=== PATIENT | male | born 1935 | race Caucasian/White ===

== ENCOUNTER 2022-01-26 03:32 | Emergency (ER) | payer MEDICARE, BC, SELFPAY ==
[2022-01-26 03:44] VITALS: BP 123/82; PULSE 95; RESP 16; TEMP 36.1; O2SAT 95; BMI 31.2
--- NOTE | 2022-01-26 03:47 | CRLHL7_ITS ---
For Patients: As a result of the Century Cures Act, medical imaging exams and procedure reports are released immediately into your electronic medical record. You may view this report before your referring provider. If you have questions, please contact your health care provider. Indication: Pain and swelling Technique: Three views of the left hand were acquired Comparison: None Findings: Somewhat technically limited as the patient could not properly position the fingers. Bone mineral density is decreased. Colindres carpal arthritic change with subchondral cysts but no anamaria erosion. This is diffuse but most FX the 1st carpometacarpal joint. 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 The 2nd through 4th MCP appear normal. 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 Arthritic process of the DIP is, PIP use and IP joint of the thumb appear to represent osteoarthritis. No periarticular demineralization. No abnormal soft tissue calcifications. No clearly visible erosions. Impression: Severe arthritic process as described above. Please review the comment Dictated by Eitan Stewart MD @ 01/26/2022 4:20:45 AM (Electronically Signed)
--- NOTE | 2022-01-26 03:57 | ED_ITS ---
HPI - General Adult General Chief complaint: Extremity Pain/Injury, Upper Stated complaint: left hand swollen going up his arm. Time Seen by Provider: 01/26/22 03:33 Source: patient and family Mode of arrival: ambulatory History of Present Illness HPI narrative: 86-year-old male who visit this fairly frequently comes in the middle of the night with swelling of the left hand for the past 2 days. No trauma nor injury. Using Tylenol with some temporary improvement in pain. Whole hand is swollen and he has some pain that radiates up the arm. Feels warm, slightly red. Swelling started in the dorsum of the hand, now going into the fingers as well. Denies a history of gout, rheumatoid arthritis. He does have a known history of osteoarthritis in multiple sites of course at his age. No recent changes in medications, no recent steroid use. He does have a notable history of COPD. He is not having any fevers. Notes no cuts or scratches. No systemic symptoms of infection. Appetite has been good, normal elimination. No chest pain, dyspnea or other organ system issues. ROS is negative times 12 systems with the exception of swelling of the hand. No recent diagnosis of cellulitis. Past medical history is fairly extensive, notable for COPD, hypertension. He does take a thiazide. Remainder of his medications are reviewed notable for antihypertensives, COPD inhalers, Synthroid. No known drug allergies. No recent pertinent surgeries. History and physical from last year are reviewed in the old EMR. No prior diagnosis of gout is found. ROS is notable for no other musculoskeletal, neurological, generalized, cardi ovascular, respiratory, GI, urinary, hematological, HEENT or skin changes. Related Data Home Medications Medication Instructions Recorded Confirmed amlodipine 5 mg tablet 5 mg PO DAILY 01/26/22 01/26/22 fluticasone 250 mcg-salmeterol 50 1 inh inhalation BID 01/26/22 01/26/22 mcg/dose blistr powdr for inhalation (Advair Diskus) ipratropium 20 mcg-albuterol 100 1 puff inhalation QID 01/26/22 01/26/22 mcg/actuation mist for inhalation (Combivent Respimat) levothyroxine 150 mcg tablet 150 mcg PO .AM 01/26/22 01/26/22 triamterene 37.5 1 tab PO .AM 01/26/22 01/26/22 mg-hydrochlorothiazide 25 mg tablet Previous Rx's Medication Instructions Recorded amoxicillin 875 mg-potassium 1 tab PO BID 10 days #20 tabs 01/26/22 clavulanate 125 mg tablet meloxicam 7.5 mg tablet 7.5 mg PO DAILY #10 tabs 01/26/22 Allergies Allergy/AdvReac Type Severity Reaction Status Date / Time No Known Drug Allergies Allergy Verified 01/26/22 03:48 PFSH [facility] Medical History COPD (chronic obstructive pulmonary disease) Pulmonary arterial hypertension Surgical History History of right hip replacement Exam Const: Vital Signs, click to edit/add: Vital Signs - 24 hr 01/26/22 03:44 Temperature 96.9 F L Pulse Rate [Pulse Oximeter] 95 Respiratory Rate 16 Blood Pressure [Ri ght Upper Arm] 123/82 Pulse Oximetry 95 Oxygen Delivery Me thod Room Air Documenting provider has reviewed patient's vital signs: yes Common normals: no apparent distress and alert General appearance: cooperative Orientation/consciousness: Yes awake Other: Talkative, friendly, mild cognitive impairment noted. Accompanied by family friend today who says that she sets up his medications and does look in on him frequently. HENMT: Common normals: normocephalic Head and scalp: normocephalic Mouth: oral and palatal mucosa normal Eye: Common normals: conjunctivae normal and no scleral icterus Conjunctiva: conjunctiva(e) normal Neck & C-Spine: Common normals: full ROM and no lymphadenopathy Resp: Common normals: normal respiratory effort, no use of accessory muscles and clear to auscultation bilaterally Effort & inspection: able to speak in complete sentences Auscultation: clear to auscultation bilaterally Cardio: Common normals: regular rate, regular rhythm, S1 normal heart sound, S2 normal heart sound, no murmurs and peripheral pulses 2+ throughout Rate: regular rate Rhythm: regular rhythm Heart sounds: S1 normal and S2 normal Peripheral pulses: pulses 2+ throughout Extremity: Other: Right arm with normal range of motion of the elbow, hand, wrist. The left side shows moderate swelling to the dorsum of the hand but no laceration or skin injury. It is diffusely swollen, warm to the touch with mild pink hue that is just diffuse. The swelling does extend into the fingers but seems to center around the wrist and MCP joints the most. He has limited flexion extension at the wrist and at the MCP and interphalangeal joints. The thumb has a little bit better movement. The elbow seems to have normal flexion extension he does move his shoulder freely as well. No point bony tenderness can be elicited. Other than the soft tissue swelling, there does not seem to be any deformity Neuro: Sensorium/orientation: awake and alert Gait (neuro): normal gait Psych: Common normals: cooperative, affect normal, speech normal and activity/motor behavior normal Speech: normal speech Insight: fair Judgement: fair Skin: Common normals: no rashes or lesions noted General skin exam: no rashes or lesions noted Course Vital Signs Vital signs: Initial Vital Signs Temperature 96.9 F L 01/26/22 03:44 Temperature Source Temporal Artery Scan 01/26/22 03:44 Pulse Rate 95 01/26/22 03:44 Respiratory Rate 16 01/26/22 03:44 Blood Pressure 123/82 01/26/22 03:44 Blood Pressure Mean 95 01/26/22 03:44 Blood Pressure Position Sitting 01/26/22 03:44 Pulse Oximetry 95 01/26/22 03:44 Oxygen Delivery Method 01/26/22 03:44 Vital Signs Temperature 96.9 F L 01/26/22 03:44 Pulse Rate 95 01/26/22 03:44 Respiratory Rate 16 01/26/22 03:44 Blood Pressure 123/82 01/26/22 03:44 Pulse Oximetry 95 01/26/22 03:44 Oxygen Delivery Method 01/26/22 03:44 Temperature 96.9 F L 01/26/22 03:44 Pulse Rate 95 01/26/22 03:44 Respiratory Rate 16 01/26/22 03:44 Blood Pressure 123/82 01/26/22 03:44 Pulse Oximetry 95 01/26/22 03:44 Oxygen Delivery Method 01/26/22 03:44 Medical Decision Making MDM Narrative Medical decision making narrative: Differential diagnosis including hidden fracture or other musculoskeletal injury, gout, inflammatory arthritis, osteoarthritis, cellulitis. Due to some detected cognitive impairment, a do think an x-ray is worthwhile. Will also get routine labs including inflammatory markers with uric acid levels. Awaiting these studies. Update: Marked degenerative changes but no fracture noted x-ray. Labs reviewed. Notable elevated inflammatory markers but no leukocytosis. Uric acid level is reassuring. I still suspect this is more of an inflammatory arthritis but clinical suspicion remains for cellulitis. Will begin Unasyn 3 g IV x1 and start the patient on Augmentin. He will receive 40 mg of prednisone p.o. x1 here in the emergency department and then daily meloxicam for 10 days. Follow up in 2 days with Primary Care for re-evaluation. Light duty for the next couple of days, rest and ice as needed. Lab Data Lab results reviewed: Yes I reviewed the patient's lab results Labs: Lab Results 01/26/22 01/26/22 Range/Units 03:50 03:50 WBC 8.19 (4.50-11.00) K/uL RBC 3.79 L (4.30-5.90) m/uL Hgb 12.9 L (13.5-17.5) gm/dL Hct 36.5 L (37.0-53.0) % MCV 96 (80-100) fL MCH 34 (26-34) pg MCHC 35 (32-36) gm/dL RDW Coeff of Alec 13.0 (11.5-15.5) % Plt Count 214 (140-440) K/uL Neut % (Auto) 73.4 H (42.0-72.0) % Lymph % (Auto) 13.4 L (20-44) % [place] % (Auto) 11.8 H (0.0-11.0) % Eos % (Auto) 0.9 (0.0-7.0) % Baso % (Auto) 0.4 (0.0-3.0) % Neut # (Auto) 6.00 (1.7-7.0) K/uL Lymph # (Auto) 1.10 (0.90-2.90) K/uL [place] # (Auto) 1.00 H (0.00-0.90) K/UL Eos # (Auto) 0.07 (0.00-0.50) K/uL Baso # (Auto) 0.03 (0.00-0.30) K/uL Abs Immat Gran (auto) 0.01 (0.00-0.30) K/uL Imm/Tot Granulo (auto) 0.1 % Sodium 137 (135-149) mmol/L Potassium 3.7 (3.6-5.1) mmol/L Chloride 104 (96-114) mmol/L Carbon Dioxide 25 (20-32) mmol/L BUN 24 (7-30) mg/dL Creatinine 0.8 (0.5-1.5) mg/dL Estimated Creat Clear 63.93 Estimated GFR 87 ml/min Glucose 111 (60-115) mg/dL Uric Acid 6.1 (2.2-8.4) mg/dL Calcium 8.9 (8.4-10.6) mg/dL C-Reactive Protein 4.3 H (0.5-1.0) mg/dL Imaging Data Hand x-ray: Attestation: I have reviewed the pertinent imaging results. My impression: Such marked osteoarthritic changes that it is difficult to appreciate any potential gouty tophi or other process but I do not see any obvious fracture. Radiologist's impression: Reviewed. See report specifically, there are multiple degenerative changes but nothing appearing acute. No changes from my plan of care. Discharge Plan Discharge Clinical Impression: Cellulitis, Reactive inflammatory arthritis Condition: Stable Instructions: Cellulitis (ED) Additional Instructions: Your x-rays show a lot of degenerative changes in the hand, signs of osteoarthritis. This is not new. There are no signs of fractures. The labs show elevated inflammatory markers but a normal uric acid level. This could potentially be gout but is unlikely because of the normal labs. You do take 1 medication, hydrochlorothiazide that does make you a little more prone to getting gout. My suspicion is that this is a combination of inflammatory arthritis and a skin infection called cellulitis. We gave you a dose of IV antibiotics here in the emergency department annual need to curing pickling packer antibiotics this morning from the local pharmacy and take these twice a day for the next 10 days. Try to take them with food as this will cause less upset your stomach. I would like for you to make a follow-up with Dr. Friend or 1 of his partners within 2 days. I will also prescribe you meloxicam which is an anti- inflammatory medication to use for the next 10 days. You may continue using Tylenol for pain, 1000 mg every 6 hours. I would like for you to avoid ibuprofen while you are on the meloxicam. Your symptoms should improve gradually daily over the next few days, but relief will not be immediate. Stronger pain medications tend to cause lot of side effects, including confusion older people. I would like to avoid these. Please bring this paperwork to your a follow-up appointment Activity Level: No Restrictions Discharge Diet: Regular Prescriptions: New amoxicillin-pot clavulanate 875-125 mg tablet 1 tab PO BID 10 Days Qty: 20 0RF meloxicam 7.5 mg tablet 7.5 mg PO DAILY Qty: 10 0RF No Action levothyroxine 150 mcg tablet 150 mcg PO .AM Label Comments: TAKE ONE TABLET BY MOUTH ONE TIME DAILY triamterene-hydrochlorothiazid 37.5-25 mg tablet 1 tab PO .AM Label Comments: TAKE ONE TABLET BY MOUTH IN THE MORNING amlodipine 5 mg tablet 5 mg PO DAILY Label Comments: Take 1 Tablet (5 mg) by mouth once daily. fluticasone propion-salmeterol [Advair Diskus] 250-50 mcg/dose blister with d evice 1 inh INHALATION BID Label Comments: Inhale 1 Puff by mouth 2 times daily Combivent Respimat 20-100 mcg/actuation mist 1 puff INHALATION QID Label Comments: INHALE ONE PUFF BY MOUTH FOUR TIMES DAILY Follow Up/Referrals: Jason Hickey MD [Primary Care Provider] - Stand Alone Forms: IFTTT Info Instructions
[2022-01-26 03:59] LABS: Basophils Absolute Auto 0.03 K/uL (0.00-0.30); Basophils Percent Auto 0.4 % (0.0-3.0); Eosinophils Absolute Auto 0.07 K/uL (0.00-0.50); Eosinophils Percent Auto 0.9 % (0.0-7.0); Hematocrit 36.5 % (37.0-53.0); Hemoglobin* 12.9 gm/dL (13.5-17.5); Immature Granulocytes Abs Auto 0.01 K/uL (0.00-0.30); Immature Granulocytes Pct Auto 0.1 %; Lymphocytes Percent Auto 13.4 % (20-44); Mean Corpuscular HGB Conc 35 gm/dL (32-36); Mean Corpuscular Hemoglobin 34 pg (26-34); Mean Corpuscular Volume 96 fL (80-100); Monocytes Percent Auto 11.8 % (0.0-11.0); Neutrophils Percent Auto 73.4 % (42.0-72.0); Platelet Count* 214 K/uL (140-440); Red Blood Count 3.79 m/uL (4.30-5.90); White Blood Count* 8.19 K/uL (4.50-11.00)
[2022-01-26 04:00] LABS: Slide Review Reflex No
--- OUTSIDE RECORDS SUMMARY | 2022-01-26 04:08 | XMS_ITS | Clinical Summary ---
:1935 Author Organization [facility] [place] [address] Care Team Providers Name Role Phone Jason Hickey MD Primary Care Provider Allergies No known active allergies Medications Medication Sig Dispensed Refills Start End Date Status Date aspirin (ECOTRIN) 81 Take 1 tablet by 0 Active mg enteric coated mouth once daily 5 tablet with a meal. acetaminophen Take 2 tablets by 0 Active (TYLENOL EXTRA mouth 3 times 6 STRGTH) 500 mg daily if needed tabletIndications: (For pain.). Max Closed right hip acetaminophen fracture, initial dose: 4000mg in encounter (HC) 24 hrs. cholecalciferol Take 1 Capsule 0 Active (Vitamin D-3) 2,000 (2,000 units) by 1 unit capsule mouth once daily. cyanocobalamin Take 1 Tablet 0 A ctive (Vitamin B-12) 1,000 (1,000 mcg) by 1 mcg tablet mouth once daily. albuterol HFA Inhale 2 Puffs by 1 Each 3 Active (PRO-AIR; VENTOLIN; mouth every 4 1 PROVENTIL) 90 hours if needed. mcg/actuation inhalerIndications: COPD exacerbation (HC) cyclobenzaprine Take 1 Tablet (10 30 Tablet 0 Active (FLEXERIL) 10 mg mg) by mouth 3 1 tabletIndications: times daily if Spasm of muscle of needed for Muscle lower back Spasm. amLODIPine (NORVASC) Take 1 Tablet (5 90 Tablet 3 Active 5 mg mg) by mouth once 2 tabletIndications: daily. Essential hypertension ipratropium-albutero Inhale 1 Puff by 3 Each 1 Active L (combivent mouth 4 times 2 respimat) (20-100 daily. mcg each actuation) mist inhalerIndications: COPD with chronic bronchitis (HC) fluticasone Inhale 1 Puff by 3 Each 1 A ctive propion-salmeteroL mouth 2 times 2 (Advair Diskus) daily. 250-50 mcg/Dose diskus inhalerIndications: COPD with chronic bronchitis (HC) triamterene-hydrochl Take 1 Tablet by 90 Tablet 3 Active orothiazide, 37.5-25 mouth every 2 mg, (MAXZIDE-25) morning. 37.5-25 mg tabletIndications: Essential hypertension levothyroxine TAKE ONE TABLET 90 Tablet 0 Active (SYNTHROID) 150 mcg BY MOUTH ONE TIME 2 tabletIndications: DAILY Hypothyroidism, unspecified type levothyroxine TAKE ONE TABLET 90 Tablet 0 01/21/20 Discontinued (SYNTHROID) 150 mcg BY MOUTH ONE TIME 2 22 tabletIndications: DAILY Hypothyroidism, unspecified type Hospital, Clinic, or Ordered Dose Route Frequency Start Date End D ate Status Other Facility Administered Medication cyanocobalamin 1,000 1000 mcg IM Q 4 WEEKS (28 11/23/2016 Active mcg injection (VITAMIN DAYS) B12)Indications: Vitamin B12 deficiency Active Problems Problem Noted Date 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 Patient has identified Health Care Agent (s): Yes Add Health Care Agents: Yes Health Care Agent(s): Primary Health Care Agent: Lauren Gray ship: cell [phone] Secondary Health Care Agent: Relationshi p: Phone: Conservator: Relationship: Phone: Guardian: Relationship: Phone: Patient has Advance Care Plan Documents (Health Care Directive, POLST): Yes Advance Care Plan Documents: Health Care Directive Patient has identified Specific Treatmen t Preferences: Yes Specific Treatment Preferences: a.) Code Status: DNR/ Do Not Attempt Resuscitation - Allow a Natural HYPERTENSION 06/21/2005 HYPOTHYROIDISM ACQUIRED UNSPEC 06/21/2005 Calculus of kidney 06/21/2005 Resolved Problems Problem Noted Date Resolved Date Atrioventricular block, Mobitz type 2 06/29/2018 Closed right hip fracture 12/27/2015 04/22/2016 Aneurysm of right iliac artery--s/p repair 4-7-06 06/21/2005 06/10/2020 Encounters Date Type Specialty Care Team Description 01/18/2022 Refill Jason Hickey MD Refi ll Request (Levothyroxine) from Last 3 Months Immunizations Name Administration Dates Next Due AMB INFLUENZA IIV3 (AGE 65+ YRS) PF 01/19/2019 (Flu Clinic Only) AMB Influenza, IIV3 (Age >=3 years) 01/01/2010 Preserve Free (Flu Clinic Only) AMB Influenza, IIV3 (Age >=3 12/22/2011 years)(Flu Clinic Only) COVID-19 vaccine ([employer] 05/21/2020, 04/30/2020 30mcg/0.3mL) PF, MDV Influenza, High-dose Inactivated 12/29/2015, 12/03/2014 Influenza, IIV3 (Age 6-35 mos) 12/17/2010, 01/01/2010 Influenza, IIV3 (Age >=3 years) 12/27/2012, 12/22/2011, 07/2010, 11/29/2008, 01/17/2008, 01/26/2003 Influenza, IIV4 12/10/2013 Influenza, Inactivated AIIV4 (Age 65+ 12/17/2020, 12/13/2019 Years) Preserv Free Influenza, Inactivated IIV3 (Age 65+ 11/23/2017, 11/23/2016 Years) Preserv Free Pneumococcal Poly,23-Valent 01/24/2016 (Pneumovax) Pneumococcal conj 13-Valent (Prevnar 12/03/2014 13) Td (Age >=7 Years) 06/17/2007 Tdap 10/06/2018, 08/04/2018 Family History Medical History Relation Name Comments Heart Disease Father at 74 from heart attack Other Mother at 93 Relation Name Status Comments Father Mother Social History Tobacco Use Types Packs/Day Years Used Date Former Smoker Quit: 03/15/18 89 Smokeless Tobacco: Current User Chew Tobacco Cessation: Ready to Quit: No; Co unseling Given: Yes Comments: chew tobacco/occasional, 1 pac k every 2 weeks for 30 years Alcohol Use Standard Drinks/Week Comments No 0 (1 standard drink = 0.6 oz pure alcoho l) Sex Assigned at Date Recorded Not on file Obstetrics History Last Filed Vital Signs Vital Sign Reading Time Taken Comments Blood Pressure 116/70 07/25/2021 10:27 AM CDT Pulse 76 07/25/2021 10:27 AM CDT Temperature 36.4 ??C (97.5 ??F) 06/30/2021 4:14 PM CDT Respiratory Rate 28 09/25/2020 2:36 PM CDT Oxygen Saturation 95% 07/25/2021 10:27 AM CDT Inhaled Oxygen Concentration - - Weight 119.7 kg (264 lb) 06/30/2021 4:14 PM CDT Height 185.4 cm (6' 1) 12/28/2019 1:46 PM CDT Body Mass Index 34.83 12/28/2019 1:46 PM CDT Plan of Treatment Health Maintenance Due Date Last Done Comments Zoster (shingles) series for age 0608/17/1987 50+ (1 of 2) BMI (ht and wt on same day) for 12/27/2020 12/28/2019, 11/15, age 18+ 02/08/2019, Additional history exists COVID-19 vaccine series (4 - 03/04/2021 01/07/2021, 021, Booster for Pfizer series) 04/30/2020 Medicare Wellness for age 65+ 06/10/2021 06/10/2020 Influenza for age 65+ 11/13/2021 12/17/2020, 12/13/2019, 01/19/2019, Additional history exists Depression screening for age 12+ 06/30/2022 06/30/2021, , 12/13/2019, Additional history exists Tetanus booster 10/06/2028 10/06/2018, 08/04/2018, 06/17/2007 Pneumococcal series for age 65+ Completed 01/24/2016, 11/14 Tdap Completed 10/06/2018, 08/04/2018 Medical Devices Implanted Type Area Shipping Inspector Device Shelf Model / Identifier Expiration Serial / Date Lot Graft Woven 16x8mm Bif Hemashield [id number] - [id number] [place] [facility] [place] [id number] / Implanted: Qty: 1 on 06/19/2005 at [facility] Oncology / [id number] Results Not on filefrom Last 3 Months Insurance Payer Benefit Plan / Subscriber ID Effective Dates Phone Addre ss Type Group [employer] [id number] 2016-Prese [address] [place] [address] MEDICARE PART A MEDICARE PART A [id number] 2002-Presen ATTN: CLAIMS - HB USE ONLY HB ONLY t [address] [place] [address] [employer] [place] [place] [employer] [id number] 2021-Presen [address] [address] [place], [place] ONLY [id number] Advance Directives Documents on File Type Date Recorded 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
[2022-01-26 04:19] LABS: Chloride* 104 mmol/L (96-114); Sodium* 137 mmol/L (135-149)
[2022-01-26 04:20] LABS: Potassium* 3.7 mmol/L (3.6-5.1)
[2022-01-26 04:22] LABS: Creatinine* 0.8 mg/dL (0.5-1.5); Est. Creatinine Clearance* 63.93; Estimated Glomerular Filt Rate 87 ml/min
[2022-01-26 04:23] LABS: Blood Urea Nitrogen* 24 mg/dL (7-30); Calcium* 8.9 mg/dL (8.4-10.6); Carbon Dioxide* 25 mmol/L (20-32); Glucose* 111 mg/dL (60-115); Uric Acid* 6.1 mg/dL (2.2-8.4)
[2022-01-26 04:26] LABS: C Reactive Protein* 4.3 mg/dL (0.5-1.0)
[2022-01-26] MEDS: AMPICILLIN/SULBACTAM 3 GM in 0.9 % SODIUM CHLORIDE Mini-bag 100 ML IVPB (04:46)
[2022-01-26] MEDS: predniSONE 10 MG TABLET 40 MG PO (04:50)
[2022-01-26] MEDS: HYDROCODONE-ACETAMIN 5-325 MG 1 TAB PO (05:18)
== END 2022-01-26 05:37 | disposition home or self-care (01) ==
PROVIDERS: Emergency Provider Family Medicine; PCP Family Medicine
DX: L03.113 Cellulitis of right upper limb (principal); M02.341 Reiter's disease, right hand
CPT/HCPCS: 36415; 73130; 80048; 84550; 85025; 86140; 96365; 99283; 99284; A9270; J0295; J7512

== ENCOUNTER 2022-11-12 15:13 | Outpatient (CLI) | payer MEDICARE, BC, SELFPAY ==
--- OUTSIDE RECORDS SUMMARY | 2022-11-16 09:40 | XMS_ITS | Continuity of Care Document ---
Author Name Unknown Organization [facility] Address [address] [place] [address] Phone Care Team Providers Care Practice Representative Name Role Phone Evette Bay MD Unavailable [...] Assist Remove Cerv Spine Disk, Single Office/Outpatient Visit,[facility] 2014 Advance Directives Directive Yes / No Effective Date File Name No Information Encounters Encounter Description Practice Location Reason(s) For Visit Diagnoses Date Provider Providers Copied on Encounter [facility], [address], [place], [place], [id number], [place] tel:[phone] [facility] No Information 7 Mehbod Amir. [facility], [address] [place] [address] [address], [place], [place], [id number] , [place]. [phone] [facility], [address], [place], [place], [id number], [place] tel:[phone] [facility] Encounter for other specified surgical aftercare 6 Mehbod Amir. [facility], [address], [place], [place], [id number] , [place]. [phone] Referring Provider: Thiago Foreman [address] [place] [address] [address], [place], [address] . tel:[phone] [facility], [address], [place], [id number], [place] tel:[phone] [facility] No Information Dec-0 2-201 5 Shanique Alas. [facility], [address] [place] [address] [address], [place], [id number] , [place]. [phone] Referring Provider: Thiago Foreman, [address] [place] [address] [address], [place], [address] . tel:[phone] Office/Outpat ient Visit,[facility], [facility], [address], [place], [id number], [place] tel:[phone] [facility] Oct-0 5201 5 Alicia Das. [address] [place] [address] [address], [place], [id number] , [place]. [phone] Referring Provider: Thiago Foreman, [address] [place] [address] [address], [place], [address] . tel:[phone] Family History Family Member Type Diagnosis Age At Onset No Information Payers Payer name Insurance type Covered republican ID Authoriza tiarin(s) [employer] Medicare Gold Choice Kris [id number] Social History Type Description Quantity Date [...]
== END 2022-11-12 15:14 | disposition home or self-care (01) ==
LOC: AMB 11-16 09:39
PROVIDERS: PCP Family Medicine; Visit Provider Internal Medicine
DX: S09.90XA Unspecified injury of head, initial encounter (principal); W18.30XA Fall on same level, unspecified, initial encounter; Y92.003 Bedroom of unspecified non-institutional (private) residence as the place of occurrence of the external cause
CPT/HCPCS: A0425; A0429

== ENCOUNTER 2022-11-12 15:40 | Inpatient (IN) | payer MEDICARE, BC, SELFPAY ==
[2022-11-12] VITALS (43 sets, daily range): BP systolic 108–220; BP diastolic 72–168; PULSE 88–110; RESP 18–20; TEMP 37.2–37.4; O2SAT 86–96; BMI 27.1; BMI 29.1
[2022-11-12 16:33] LABS: Troponin, Point-of-Care* 0.05 ng/ml (0.01-0.04)
--- NOTE | 2022-11-12 16:41 | ED.FALL ---
HPI - Fall General Time Seen by Provider: 16:41 Date Seen: 11/12/22 Chief Complaint: Fall/Minor Trauma Stated Complaint: Fall Time Seen by Provider: 11/12/22 16:33 Source: patient and RN notes reviewed Mode of arrival: ambulatory Limitations: no limitations History of Present Illness HPI Narrative: Lion is an 87-year-old male found down in his apartment, fell overnight. He reportedly was laying face down on the right side of his face all night. He is here with a care provider, brought in by ambulance from his independent apartments where he resides at [facility] [address]. They report his a week ago today, the is tomorrow. Lion recently had a UTI, care provide her with him wonders if it could be urinary tract infection again. He has incontinence issues. Nursing staff attempted to get a cath specimen but has significant altered anatomy per the report, were unable to catheterize him. He denies any pain at this time, does note right shoulder maybe has some rotator cuff issues arthritis, did hurt in the fall but is not more than baseline at this time. He denies any pain anywhere at this time. Is noted to have bilateral knee trauma. His right face is swollen, reportedly this is the side he late on all night. His right eye was significantly mattered, nursing staff did clean it. He denies any fever, denies any pain anywhere to me. He is not on blood thinners. In review of his chart, was last seen here in January 2022 for a hand cellulitis. He has underlying COPD, hypertension, pulmonary hypertension, history of right hip replacement. MD complaint: fall Related Data Home Medications Medication Instructions Recorded Confirmed amlodipine 5 mg tablet 5 mg PO DAILY 01/26/22 01/26/22 fluticasone 250 mcg-salmeterol 50 1 inh inhalation BID 01/26/22 01/26/22 mcg/dose blistr powdr for inhalation (Advair Diskus) ipratropium 20 mcg-albuterol 100 1 puff inhalation QID 01/26/22 01/26/22 mcg/actuation mist for inhalation (Combivent Respimat) levothyroxine 150 mcg tablet 150 mcg PO .AM 01/26/22 01/26/22 triamterene 37.5 1 tab PO .AM 11/14/22 11/14/22 mg-hydrochlorothiazide 25 mg tablet Previous Rx's Medication Instructions Recorded amoxicillin 875 mg-potassium 1 tab PO BID 10 days #20 tabs 01/26/22 clavulanate 125 mg tablet meloxicam 7.5 mg tablet 7.5 mg PO DAILY #10 tabs 01/26/22 Allergies Allergy/AdvReac Type Severity Reaction Status Date / Time No Known Drug Allergies Allergy Verified 11/12/22 15:55 Review of Systems Status of ROS: Reports: 6 or more systems reviewed and unremarkable except as noted in History and below PFSH [facility] Medical History Pulmonary arterial hypertension ?I27.21 - Secondary pulmonary arterial hypertension (ICD-10) COPD (chronic obstructive pulmonary disease) ?J44.9 - Chronic obstructive pulmonary disease, unspecified (ICD-10) Surgical History History of right hip replacement ?Z96.641 - Presence of right artificial hip joint (ICD-10) Social History Smoking Status: Former smoker What tobacco products do you use: cigarettes Smoking quit date/years: >15 years ago Do you use any of these nicotine containing products: None How often do you have a drink containing alcohol: never AUDIT-C Alcohol total score: 0 Non-prescribed substance use: denies use Exam Const: Vital Signs, click to edit/add: Vital Signs - 24 hr 11/12/22 15:50 11/12/22 15:50 11/12/22 15:51 Temperature 99.0 F Pulse Rate 95 96 Pulse Rate [Right Pulse Oximeter] 93 Respiratory Rate 18 Blood Pressure 141/93 H Blood Pressure [Ri ght Upper Arm] 141/93 H Pulse Oximetry 96 93 94 Oxygen Delivery Me thod Room Air 11/12/22 16:00 11/12/22 16:02 11/12/22 16:15 Temperature Pulse Rate 91 91 90 Pulse Rate [Right Pulse Oximeter] Respiratory Rate Blood Pressure 156/83 H Blood Pressure [Ri ght Upper Arm] Pulse Oximetry 94 94 94 Oxygen Delivery Me thod 11/12/22 16:17 11/12/22 16:32 11/12/22 16:38 Temperature Pulse Rate 93 88 Pulse Rate [Right Pulse Oximeter] Respiratory Rate Blood Pressure 168/134 H 220/168 H Blood Pressure [Ri ght Upper Arm] Pulse Oximetry 91 91 Oxygen Delivery Me thod 11/12/22 16:44 11/12/22 16:45 11/12/22 16:45 Temperature Pulse Rate 95 90 Pulse Rate [Right Pulse Oximeter] Respiratory Rate Blood Pressure 150/79 H Blood Pressure [Ri ght Upper Arm] Pulse Oximetry 91 90 91 Oxygen Delivery Me thod 11/12/22 16:47 11/12/22 17:00 11/12/22 17:02 Temperature Pulse Rate 90 89 91 Pulse Rate [Right Pulse Oximeter] Respiratory Rate Blood Pressure 136/80 153/87 H Blood Pressure [Ri ght Upper Arm] Pulse Oximetry 89 93 86 L Oxygen Delivery Me thod 11/12/22 17:15 11/12/22 17:17 11/12/22 17:57 Temperature Pulse Rate 90 88 95 Pulse Rate [Right Pulse Oximeter] Respiratory Rate Blood Pressure 141/75 H Blood Pressure [Ri ght Upper Arm] Pulse Oximetry 91 92 92 Oxygen Delivery Me thod 11/12/22 17:58 11/12/22 18:00 11/12/22 18:01 Temperature Pulse Rate 97 95 98 Pulse Rate [Right Pulse Oximeter] Respiratory Rate Blood Pressure 108/77 116/86 Blood Pressure [Ri ght Upper Arm] Pulse Oximetry 93 92 92 Oxygen Delivery Me thod 11/12/22 18:02 11/12/22 18:15 11/12/22 18:17 Temperature Pulse Rate 101 H 96 93 Pulse Rate [Right Pulse Oximeter] Respiratory Rate Blood Pressure 133/74 Blood Pressure [Ri ght Upper Arm] Pulse Oximetry 93 91 92 Oxygen Delivery Me thod 11/12/22 18:18 11/12/22 18:32 11/12/22 18:33 Temperature Pulse Rate 95 92 Pulse Rate [Right Pulse Oximeter] Respiratory Rate Blood Pressure 136/72 Blood Pressure [Ri ght Upper Arm] Pulse Oximetry 93 92 Oxygen Delivery Me thod 11/12/22 18:45 11/12/22 18:46 Temperature Pulse Rate 95 97 Pulse Rate [Right Pulse Oximeter] Respiratory Rate Blood Pressure 121/78 Blood Pressure [Ri ght Upper Arm] Pulse Oximetry 92 93 Oxygen Delivery Me thod 87-year-old male is seen in stab 1 due to volume in the ED. he is resting but awakens easily. He is edentulous in oropharynx is atraumatic but has dry mucosa. Speech reflects this it inch a list state but he is conversive. He has right periorbital swelling including upper and lower eyelid which is swollen shut on the right side. Underlying pupil is equal reactive with the left, sclera clear, conjugate gaze, had to pry the eyelids open on the right to be able to see this. The swelling and erythema extends up above the eyebrow, down onto the right zygomatic arch. There are no wounds noted. Ears and nose seem to be atraumatic. Scalp seems to be atraumatic, does not complain of any midline tenderness of his back, neck without masses. Lungs are clear, somewhat distant breath sounds but no crackles noted. Does not complain of any chest wall pain on palpation. CV regular rate and rhythm, no murmur noted. Abdomen is soft, nontender, no palpable masses noted. He seems to be able to mobilize both upper and lower extremities but do note that anteriorly over both knees seems to have pressure wound starting, they are black and in the middle with some blistering. There is more erythema and slight warmth over the right anterior skin overlying the knee. Knee joints bilaterally do not seem to have any fluid. He does not complain of any pain while I am examining his knees are palpating them. Penis is visible, has central hole but do not see definition of the glans. Will work with nursing staff on getting a Rodriguez in place. Documenting provider has reviewed patient's vital signs: yes Course Course Hospital Course: Need to try to attempt to get urine on this patient as well as a full complement of labs, would do blood cultures as well as screening for COVID/viral respiratory agents. He will get head, facial and cervical CT scans to rule out traumatic change. We will get a one view chest x-ray, images of his right shoulder and both of his knees. I do wonder about underlying infection for this patient, need to consider elevated CK as well with developing rhabdomyolysis. Certainly his face and his right knee do have some skin changes that could already 0.2 early cellulitis. These could all just be there from pressure independent changes from being down overnight. We need to consider multiple systems and rule out infection. Will start with 500 mL normal saline fluid bolus and monitor closely, may very well need more fluids than that but will monitor as stated. Reevaluation(s) Time of Reevaluation #1: 18:46 Reevaluation #1: Reviewed with Lion that his total CK is up, explained that this was from his fall laying on his muscles causing them to break down. We discussed the condition of rhabdomyolysis. He needs IV fluid support, need to look for source of infection. Am having nursing staff try to place a Rodriguez so we can get a urinalysis. He is going to need IV fluids, further management. He states he is not stain, his 's is supposed to be tomorrow. Reviewed with him that he is not being forced to stay, if he can get up on his own, he is free to do so. Unfortunately, he is too weak and is not able to. There certainly is an underlying infection that we need to find the source. Am waiting for rest of the films to be read. We need to collect the urinalysis as stated before. He is going to need hospitalization, will talk to the hospitalist shortly. Time of Reevaluation #2: 19:01 Reevaluation #2: Nursing staff could not get a catheter in, I attempted a coude, patient started complaining of pain and asked me to stop which I did do so. He states he can provide urine if he can sit up. Will allow him to sit and try to get urinalysis. Consultations Consultation #1: Spoke with hospitalist Dr. Jiménez, she accepts patient. Did add on an ETOH for labs after talking to her. He did attempt to get up in urinate but was unable to provide urine. He is getting a 2nd 500 mL normal saline bolus here. Will likely need more fluids than this. She is aware that we have been unsuccessful in obtaining urinalysis. Will have nursing staff do bladder scan. She does except him for further cares, does have rhabdomyolysis. Follow-up troponin is also pending. Time: 19:46 Vital Signs Vital signs: Initial Vital Signs Temperature 99.0 F 11/12/22 15:50 Temperature Source Temporal Artery Scan 11/12/22 15:50 Pulse Rate 95 11/12/22 15:50 Pulse Rhythm Regular 11/12/22 15:50 Pulse Strength 3+ Normal 11/12/22 15:50 Respiratory Rate 18 11/12/22 15:50 Blood Pressure 141/93 H 11/12/22 15:50 Blood Pressure Mean 109 H 11/12/22 15:50 Blood Pressure Position Supine 11/12/22 15:50 Pulse Oximetry 96 11/12/22 15:50 Oxygen Delivery Method Room Air 11/12/22 15:50 Vital Signs Temperature 99.0 F 11/12/22 15:50 Pulse Rate 95 11/12/22 15:50 Respiratory Rate 18 11/12/22 15:50 Blood Pressure 141/93 H 11/12/22 15:50 Pulse Oximetry 96 11/12/22 15:50 Oxygen Delivery Method Room Air 11/12/22 15:50 Temperature 99.0 F 11/12/22 15:50 Pulse Rate 97 11/12/22 18:46 Respiratory Rate 18 11/12/22 15:50 Blood Pressure 121/78 11/12/22 18:46 Pulse Oximetry 93 11/12/22 18:46 Oxygen Delivery Method Room Air 11/12/22 15:50 MDM - Fall Lab Data Attestation: I reviewed the patient's lab results. Labs: Lab Results 11/12/22 11/12/22 11/12/22 Range/Units 16:15 16:32 17:57 WBC 13.78 H (4.50-11.00) K/uL RBC 4.01 L (4.30-5.90) m/uL Hgb 12.9 L (13.5-17.5) gm/dL Hct 38.4 (37.0-53.0) % MCV 96 (80-100) fL MCH 32 (26-34) pg MCHC 34 (32-36) gm/dL RDW Coeff of Alec 12.7 (11.5-15.5) % Plt Count 299 (140-440) K/uL Neut % (Auto) 87.9 H (42.0-72.0) % Lymph % (Auto) 4.3 L (20-44) % Gregg % (Auto) 7.4 (0.0-11.0) % Eos % (Auto) 0.0 (0.0-7.0) % Baso % (Auto) 0.1 (0.0-3.0) % Neut # (Auto) 12.10 H (1.7-7.0) K/uL Lymph # (Auto) 0.60 L (0.90-2.90) K/uL Gregg # (Auto) 1.00 H (0.00-0.90) K/UL Eos # (Auto) 0.00 (0.00-0.50) K/uL Baso # (Auto) 0.00 (0.00-0.30) K/uL Abs Immat Gran (auto) 0.00 (0.00-0.30) K/uL Imm/Tot Granulo (auto) 0.3 % Sodium 141 (135-149) mmol/L Potassium 3.5 L (3.6-5.1) mmol/L Chloride 104 (96-114) mmol/L Carbon Dioxide 26 (20-32) mmol/L Anion Gap 11 (7-15) mEq/L BUN 52 H (7-30) mg/dL Creatinine 1.1 (0.5-1.5) mg/dL Estimated Creat Clear 53.89 Estimated GFR 66 ml/min Glucose 134 H (60-115) mg/dL Lactate 2.0 H (0.5-1.9) mmol/L Calcium 9.5 (8.4-10.6) mg/dL Total Bilirubin 1.1 (0.1-1.5) mg/dL AST 242 H (12-35) U/L ALT 69 H (4-50) U/L Alkaline Phosphatase 126 (40-150) U/L Total Creatine Kinase 8690 H (54-186) U/L C-Reactive Protein 21.5 H (0.5-1.0) mg/dL Total Protein 7.7 (6.0-8.3) g/dL Albumin 3.8 (3.3-5.0) g/dL Procalcitonin 0.64 H (<0.50) ng/mL SARS-CoV-2 (PCR) Negative SARS-CoV-2 (Negative) Influenza Type A (PCR) Negative PCR FLU A (Negative) Influenza Type B (PCR) Negative PCR FLU B (Negative) RSV (PCR) Negative PCR RSV (Negative) Lab Acknowledgement Test Added POC Troponin I 0.05 H (0.01-0.04) ng/ml Imaging Data CT scan - head: Attestation: I have reviewed the pertinent imaging results. Radiologist's impression: Patient: LION KLEIN Facility:?[facility] Patient ID:?[id number] Site Patient ID:?[id number]. Site :?1935 Study:?CT Head WITHOUT-11/12/2022 5:46:08 PM Ordering Physician:?Matti Meadows Final Report: INDICATION: Fall, head injury. COMPARISON: CT head 11/27/2017. TECHNIQUE: CT of the head without IV contrast. Coronal and sagittal reconstructions. FINDINGS: No intracranial hemorrhage, mass effect, or evidence of acute infarct. No midline shift. No abnormal extra-axial fluid collections. Mild generalized cerebral and cerebellar volume loss. Mild chronic small vessel ischemic disease. 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 Ventricular caliber is within normal limits. Orbits and extraocular muscles are symmetric. The paranasal sinuses and mastoid air cells are clear. No acute fracture identified. Soft tissue swelling across the forehead, right lateral frontoparietal scalp, and right periorbital region. IMPRESSION: 1. No acute intracranial findings. 2. Mild generalized cerebral volume loss and mild chronic small vessel ischemic disease. 3. Soft tissue swelling across the forehead, right lateral frontoparietal scalp, and right periorbital region. Please note that all CT scans at this facility use dose modulation, iterative reconstruction, and/or weight-based dosing when appropriate to reduce radiation dose to as low as reasonably achievable. Dictated by Deisy Haines MD @ 11/12/2022 6:39:05 PM (Electronic Signature) CT cervical spine: Attestation: I have reviewed the pertinent imaging results. Radiologist's impression: Patient: LION KLEIN Facility:?[facility] Patient ID:?[id number] Site Patient ID:?[id number]. Site :?[id number] Study:?CT Spine Cervical -11/12/2022 5:46:36 PM Ordering Physician:Fidelia Meadows Final Report: INDICATION: Fall, neck pain. COMPARISON: None. TECHNIQUE: CT of the cervical spine without IV contrast. Coronal and sagittal reconstructions. FINDINGS: No acute fracture or traumatic malalignment of the cervical spine. Vertebral body heights are well maintained. Normal vertebral body alignment. Spondylotic changes including endplate spurring, facet arthropathy, and disc space narrowing most severe at C3-C4 and C5-C6. There is partial fusion of the C6 and C7 vertebral bodies. Multilevel varying degrees of neural foraminal narrowing and spinal canal stenosis. No prevertebral soft tissue swelling. Visualized intracranial contents are unremarkable. The mastoid air cells are clear. The thyroid gland is not well seen. Emphysema and scarring in the lung apices. IMPRESSION: 1. No acute fracture or traumatic malalignment of the cervical spine. 2. Spondylotic changes of the cervical spine as described above. 3. Emphysema in the lung apices. Please note that all CT scans at this facility use dose modulation, iterative reconstruction, and/or weight-based dosing when appropriate to reduce radiation dose to as low as reasonably achievable. Dictated by Deisy Haines MD @ 11/12/2022 6:51:09 PM (Electronic Signature) CT facial bones: Attestation: I have reviewed the pertinent imaging results. Radiologist's impression: Patient: LION KLEIN Facility:?[facility] Patient ID:?[id number] Site Patient ID:?[id number]. Site :?1935 Study:?CT Facial -11/12/2022 5:47:03 PM Ordering Physician:Fidelia Meadows Final Report: INDICATION: Fall, right facial trauma. COMPARISON: CT head 11/27/2017. TECHNIQUE: CT of the facial bones without IV contrast. Coronal and sagittal reconstructions. FINDINGS: There is soft tissue swelling across the forehead, right lateral frontoparietal scalp, and right periorbital region. No acute fracture identified. The paranasal sinuses and mastoid air cells are clear. No air-fluid levels. No bony hyperostosis or areas of bone destruction. The nasal septum is essentially midline. The mandible is intact and the temporomandibular joints are anatomically aligned. The patient is edentulous. Visualized intracranial contents are unremarkable. Orbits and extraocular muscles are symmetric. Spondylotic changes of the upper cervical spine. IMPRESSION: 1. Soft tissue swelling across the forehead, right lateral frontoparietal scalp, and right periorbital region. 2. No acute fracture identified. Please note that all CT scans at this facility use dose modulation, iterative reconstruction, and/or weight-based dosing when appropriate to reduce radiation dose to as low as reasonably achievable. Dictated by Deisy Haines MD @ 11/12/2022 6:44:43 PM (Electronic Signature) Chest x-ray: Attestation: I have reviewed the pertinent imaging results. My impression: I see no acute pathology on this chest x-ray. Do see the abnormality in the right upper humerus with sclerotic looking type bone that was seen on a shoulder image, await Radiology over-read. Radiologist's impression: Patient: LION KLEIN Facility:?[facility] Patient ID:?[id number] Site Patient ID:?[id number]. Site :?1935 Study:?XRay Chest 1 view-11/12/2022 5:53:09 PM Ordering Physician:Fidelia Meadows Final Report: Indication: Fall Technique: Two AP views of the chest Comparison: Chest radiograph on December 10, 2020 Findings: Overlying EKG leads limit evaluation of the left hemithorax. Within these limitations, lungs are clear. No pleural effusion, pneumothorax or hemothorax. No acute displaced rib fracture or other radiographic evidence of traumatic injury. 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 Heart and mediastinum are stable. Visualized upper abdomen is unremarkable. Impression: No acute cardiopulmonary process. Specifically, no traumatic injury. Dictated by Loretta Carvalho MD @ 11/12/2022 6:33:58 PM (Electronic Signature) XR bilateral knees: Attestation: I have reviewed the pertinent imaging results. Radiologist's impression: Patient: LION KLEIN Facility:?[facility] Patient ID:?[id number] Site Patient ID:?[id number]. Site :?1935 Study:?XRay Knee Bilateral 2 view-11/12/2022 5:53:44 PM Ordering Physician:Fidelia Meadows Final Report: Indication: Fall Technique: Three views of the bilateral knees Comparison: None Findings: No acute fracture or dislocation. Moderate tricompartmental osteoarthritis with joint space narrowing and osteophytosis. Small right suprapatellar joint effusion. No left suprapatellar joint effusion. No soft tissue swelling or radiopaque foreign body. Vascular calcifications. Impression: No acute fracture or dislocation bilaterally. Dictated by Loretta Carvalho MD @ 11/12/2022 6:40:38 PM (Electronic Signature) XR right shoulder: Attestation: I have reviewed the pertinent imaging results. My impression: Sclerotic type changes of bone in the proximal humerus, arthritis in his shoulder but do not appreciate fractures. Await Radiology over-read. Radiologist's impression: Patient: LION KLEIN Facility:?[facility] Patient ID:?[id number] Site Patient ID:?[id number]. Site :?1935 Study:?XRay Shoulder Right 2 view-11/12/2022 5:53:27 PM Ordering Physician:?Matti Meadows Final Report: Indication: Trauma Technique: two views of the right shoulder Comparison: None Findings: No acute fracture or dislocation. Marked osteoarthritis of the glenohumeral joint with joint space narrowing and osteophytosis. Narrowing of the acromiohumeral interval suggestive of rotator cuff pathology. Moderate acromioclavicular osteoarthritis. 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 No soft tissue swelling or radiopaque foreign body. Impression: 1. No acute fracture or dislocation. 2. Marked osteoarthritis of the glenohumeral joint.Narrowing of the acromiohumeral interval suggestive of rotator cuff pathology. Dictated by Loretta Carvalho MD @ 11/12/2022 6:38:16 PM (Electronic Signature) ECG Data Attestation: I personally reviewed and interpreted this ECG as follows: (Sinus rhythm, 85 beats per minute, significant artifact, occasional PVC seen.) ECG interpretation date: 11/12/22 ECG interpretation time: 19:47 Prior ECG tracings: not available for review Critical Care Time Critical Care Time Critical Care Time: No Discharge Plan Discharge Clinical Impression: Rhabdomyolysis, Fall Patient Disposition: Admitted As Observation
--- NOTE | 2022-11-12 16:54 | CRLHL7_ITS ---
For Patients: As a result of the Century Cures Act, medical imaging exams and procedure reports are released immediately into your electronic medical record. You may view this report before your referring provider. If you have questions, please contact your health care provider. INDICATION: Fall, right facial trauma. COMPARISON: CT head 11/27/2017. TECHNIQUE: CT of the facial bones without IV contrast. Coronal and sagittal reconstructions. FINDINGS: There is soft tissue swelling across the forehead, right lateral frontoparietal scalp, and right periorbital region. No acute fracture identified. The paranasal sinuses and mastoid air cells are clear. No air-fluid levels. No bony hyperostosis or areas of bone destruction. The nasal septum is essentially midline. The mandible is intact and the temporomandibular joints are anatomically aligned. The patient is edentulous. Visualized intracranial contents are unremarkable. Orbits and extraocular muscles are symmetric. Spondylotic changes of the upper cervical spine. IMPRESSION: 1. Soft tissue swelling across the forehead, right lateral frontoparietal scalp, and right periorbital region. 2. No acute fracture identified. Please note that all CT scans at this facility use dose modulation, iterative reconstruction, and/or weight-based dosing when appropriate to reduce radiation dose to as low as reasonably achievable. Dictated by Deisy Haines MD @ 11/12/2022 6:44:43 PM (Electronically Signed)
--- NOTE | 2022-11-12 16:54 | CRLHL7_ITS ---
For Patients: As a result of the Century Cures Act, medical imaging exams and procedure reports are released immediately into your electronic medical record. You may view this report before your referring provider. If you have questions, please contact your health care provider. INDICATION: Fall, head injury. COMPARISON: CT head 11/27/2017. TECHNIQUE: CT of the head without IV contrast. Coronal and sagittal reconstructions. FINDINGS: No intracranial hemorrhage, mass effect, or evidence of acute infarct. No midline shift. No abnormal extra-axial fluid collections. Mild generalized cerebral and cerebellar volume loss. Mild chronic small vessel ischemic disease. 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 Ventricular caliber is within normal limits. Orbits and extraocular muscles are symmetric. The paranasal sinuses and mastoid air cells are clear. No acute fracture identified. Soft tissue swelling across the forehead, right lateral frontoparietal scalp, and right periorbital region. IMPRESSION: 1. No acute intracranial findings. 2. Mild generalized cerebral volume loss and mild chronic small vessel ischemic disease. 3. Soft tissue swelling across the forehead, right lateral frontoparietal scalp, and right periorbital region. Please note that all CT scans at this facility use dose modulation, iterative reconstruction, and/or weight-based dosing when appropriate to reduce radiation dose to as low as reasonably achievable. Dictated by Deisy Haines MD @ 11/12/2022 6:39:05 PM (Electronically Signed)
--- NOTE | 2022-11-12 16:54 | CRLHL7_ITS ---
For Patients: As a result of the Cures Act, medical imaging exams and procedure reports are released immediately into your electronic medical record. You may view this report before your referring provider. If you have questions, please contact your health care provider. Indication: Fall Technique: Three views of the bilateral knees Comparison: None Findings: No acute fracture or dislocation. Moderate tricompartmental osteoarthritis with joint space narrowing and osteophytosis. Small right suprapatellar joint effusion. No left suprapatellar joint effusion. No soft tissue swelling or radiopaque foreign body. Vascular calcifications. Impression: No acute fracture or dislocation bilaterally. Dictated by Loretta Carvalho MD @ 11/12/2022 6:40:38 PM (Electronically Signed)
--- NOTE | 2022-11-12 16:54 | CRLHL7_ITS ---
For Patients: As a result of the Century Cures Act, medical imaging exams and procedure reports are released immediately into your electronic medical record. You may view this report before your referring provider. If you have questions, please contact your health care provider. Indication: Fall Technique: Two AP views of the chest Comparison: Chest radiograph on December 10, 2020 Findings: Overlying EKG leads limit evaluation of the left hemithorax. Within these limitations, lungs are clear. No pleural effusion, pneumothorax or hemothorax. No acute displaced rib fracture or other radiographic evidence of traumatic injury. 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 Heart and mediastinum are stable. Visualized upper abdomen is unremarkable. Impression: No acute cardiopulmonary process. Specifically, no traumatic injury. Dictated by Loretta Carvalho MD @ 11/12/2022 6:33:58 PM (Electronically Signed)
--- NOTE | 2022-11-12 16:54 | CRLHL7_ITS ---
For Patients: As a result of the Cures Act, medical imaging exams and procedure reports are released immediately into your electronic medical record. You may view this report before your referring provider. If you have questions, please contact your health care provider. Indication: Trauma Technique: two views of the right shoulder Comparison: None Findings: No acute fracture or dislocation. Marked osteoarthritis of the glenohumeral joint with joint space narrowing and osteophytosis. Narrowing of the acromiohumeral interval suggestive of rotator cuff pathology. Moderate acromioclavicular osteoarthritis. 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 No soft tissue swelling or radiopaque foreign body. Impression: 1. No acute fracture or dislocation. 2. Marked osteoarthritis of the glenohumeral joint.Narrowing of the acromiohumeral interval suggestive of rotator cuff pathology. Dictated by Loretta Carvalho MD @ 11/12/2022 6:38:16 PM (Electronically Signed)
--- NOTE | 2022-11-12 16:54 | CRLHL7_ITS ---
For Patients: As a result of the Cures Act, medical imaging exams and procedure reports are released immediately into your electronic medical record. You may view this report before your referring provider. If you have questions, please contact your health care provider. INDICATION: Fall, neck pain. COMPARISON: None. TECHNIQUE: CT of the cervical spine without IV contrast. Coronal and sagittal reconstructions. FINDINGS: No acute fracture or traumatic malalignment of the cervical spine. Vertebral body heights are well maintained. Normal vertebral body alignment. Spondylotic changes including endplate spurring, facet arthropathy, and disc space narrowing most severe at C3-C4 and C5-C6. There is partial fusion of the C6 and C7 vertebral bodies. Multilevel varying degrees of neural foraminal narrowing and spinal canal stenosis. No prevertebral soft tissue swelling. Visualized intracranial contents are unremarkable. The mastoid air cells are clear. The thyroid gland is not well seen. Emphysema and scarring in the lung apices. IMPRESSION: 1. No acute fracture or traumatic malalignment of the cervical spine. 2. Spondylotic changes of the cervical spine as described above. 3. Emphysema in the lung apices. Please note that all CT scans at this facility use dose modulation, iterative reconstruction, and/or weight-based dosing when appropriate to reduce radiation dose to as low as reasonably achievable. Dictated by Deisy Haines MD @ 11/12/2022 6:51:09 PM (Electronically Signed)
[2022-11-12 17:02] LABS: Basophils Percent Auto 0.1 % (0.0-3.0); Hematocrit 38.4 % (37.0-53.0); Hemoglobin* 12.9 gm/dL (13.5-17.5); Immature Granulocytes Pct Auto 0.3 %; Lymphocytes Percent Auto 4.3 % (20-44); Mean Corpuscular HGB Conc 34 gm/dL (32-36); Mean Corpuscular Hemoglobin 32 pg (26-34); Mean Corpuscular Volume 96 fL (80-100); Monocytes Percent Auto 7.4 % (0.0-11.0); Neutrophils Percent Auto 87.9 % (42.0-72.0); Platelet Count* 299 K/uL (140-440); RDW Coefficient of Variation % 12.7 % (11.5-15.5); Red Blood Count 4.01 m/uL (4.30-5.90); White Blood Count* 13.78 K/uL (4.50-11.00)
[2022-11-12 17:04] LABS: Slide Review Reflex No
[2022-11-12 17:06] LABS: Albumin* 3.8 g/dL (3.3-5.0); Chloride* 104 mmol/L (96-114); Sodium* 141 mmol/L (135-149)
[2022-11-12 17:07] LABS: Potassium* 3.5 mmol/L (3.6-5.1)
[2022-11-12 17:09] LABS: Alkaline Phosphatase* 126 U/L (40-150); Anion Gap 11 mEq/L (7-15); Aspartate Amino Transferase* 242 U/L (12-35); Bilirubin Total* 1.1 mg/dL (0.1-1.5); Blood Urea Nitrogen* 52 mg/dL (7-30); Carbon Dioxide* 26 mmol/L (20-32); Creatinine* 1.1 mg/dL (0.5-1.5); Est. Creatinine Clearance* 53.89; Estimated Glomerular Filt Rate 66 ml/min; Total Protein* 7.7 g/dL (6.0-8.3)
[2022-11-12 17:10] LABS: Alanine Aminotransferase* 69 U/L (4-50); Calcium* 9.5 mg/dL (8.4-10.6); Glucose* 134 mg/dL (60-115)
[2022-11-12 17:25] LABS: C Reactive Protein* 21.5 mg/dL (0.5-1.0)
[2022-11-12 17:26] LABS: Procalcitonin* 0.64 ng/mL (<0.50)
[2022-11-12 17:45] LABS: Creatine Kinase* 8690 U/L (54-186)
--- OUTSIDE RECORDS SUMMARY | 2022-11-12 17:54 | XMS_ITS | Continuity of Care Document ---
Author Name Unknown Organization [facility] Address [address] [place] [address] Phone Care Team Providers Care Shake Loader Name Role Phone Evette Bay MD Unavailable Unavailable Allergies, Adverse Reactions, Alerts Substance Reaction Status Criticality No Known Allergies Active No Inform ation Medications Medication Instructions Dosage Effective Dates (start - stop) Status Comments SYNTHROID (unknown strength) Not Available - Active TENORMIN (unknown strength) Not Available - Active ASPIRIN (unknown strength) Not Available - Active Procedures Procedure Date Postop Followup Visit X-Ray Exam Of Neck Spine2-3 Views Remove Cerv Spine Disk, Single 15 Pa Assist Remove Cerv Spine Disk, Single Office/Outpatient Visit,[facility] 2014 Advance Directives Directive Yes / No Effective Date File Name No Information Encounters Encounter Description Practice Location Reason(s) For Visit Diagnoses Date Provider Providers Copied on Encounter [facility], [address], [place], [place], [id number], [place] tel:[phone] [facility] No Information 7 Mehbod Amir. [facility], [address] [place] [address] [address], [place], [place], [id number] , [place]. [phone] [facility], [address], [place], [place], [id number], [place] tel:[phone] [facility] Encounter for other specified surgical aftercare 6 Mehbod Amir. [facility], [address], [place], [place], [id number] , [place]. [phone] Referring Provider: Thiago Foreman [address] [place] [address] [address], [place], [address] . tel:[phone] [facility], [address], [place], [id number], [place] tel:[phone] [facility] No Information Dec-0 2-201 5 Shanique Alas. [facility], [address] [place] [address] [address], [place], [id number] , [place]. [phone] Referring Provider: Thiago Foreman, [address] [place] [address], [place], [address] . tel:[phone] Office/Outpat ient Visit,[facility], [facility], [address], [place], [id number], [place] tel:[phone] [facility] Oct-0 5201 5 Alicia Das. [address] [place] [address] [address], [place], [id number] , [place]. [phone] Referring Provider: Thiago Foreman, [address] [place] [address] [address], [place], [address] . tel:[phone] Family History Family Member Type Diagnosis Age At Onset No Information Payers Payer name Insurance type Covered republican ID Authoriza tiarin(s) [employer] Medicare Gold Choice Kris [id number] Social History Type Description Quantity Date Captured Comments Sex Male Smoking Status No Information Chief Complaint And Reason For Visit No Information Reason For Referral Reason For Referral No Information History Of Present Illness Encounter Date Complaint History Of Prese nt Illness No Information Functional Status Date Functional Assessmen t No Information Instructions Date Instruction Additional Infor mation No Information Assessments Type Assessment Date No Information Patient Care Teams Name Effective Dates (start - stop) Status Members No Information
[2022-11-12] MEDS: 0.9 % SODIUM CHLORIDE 500 ML 500 ML IV (18:06)
--- NOTE | 2022-11-12 18:25 | ED.NURSE ---
pt has a quarter size bruise on the right lateral hip, brown/ blue in color.
[2022-11-12 18:45] LABS: PCR FLU A Negative PCR FLU A (Negative); PCR FLU B Negative PCR FLU B (Negative); PCR RSV Negative PCR RSV (Negative)
[2022-11-12 18:51] LABS: SARS PCR* Negative SARS-CoV-2 (Negative)
[2022-11-12 19:53] LABS: Troponin, Point-of-Care* 0.03 ng/ml (0.01-0.04)
[2022-11-12 20:49] LABS: Ethanol* < 0.01 % (0.01-0.03)
--- NOTE | 2022-11-12 22:02 | P.IMHP_ITS ---
Hospitalist- H&P: HPI History of Present Illness Date Seen: 11/12/22 Chief complaint: Fall Narrative: ADMISSION HISTORY AND PHYSICAL - HOSPITALIST Chief Complaint: I fell down and I could not get up HPI: 87-year-old with a history of a right hip fracture in 2016, hypertension an acute bereavement fell in his [address] apartment yesterday evening. He approximates being on the floor from about 5:30 p.m. until this afternoon when finely his [id number] and another caregiver arrived to find him on the floor. He was found dehydrated, mildly disoriented, bruised and swollen right side of his face as well as bilateral knees. EMS was called and he was brought in for evaluation. Unfortunately, this gentleman just lost his a week ago. He was the planning her and this is set for tomorrow, 11/13/2022. ER COURSE: Labs, x-rays. Found to be in moderate rhabdomyolysis with some pre renal azotemia. Hospital medicine team was asked to admit. 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 INVESTIGATIONS: LABS/MICRO/ECG/IMAGING No temp recorded Blood pressure 155/76, 138/83 Heart rate in the 90s Pulse ox 93% on room air CBC reflects a leukocytosis at 13.8, 87.9% neutrophils Hemoglobin 12.9 Platelets 299 Mildly depressed potassium at 3.5 BUN 52 creatinine 1.1. Baseline creatinine seems to be 0.8 Glucose 134 Lactate 2.0 Troponin was 0.05 - came down to 0.03 Elevated AST, ALT CK 8700 CRP 21.5 Procalcitonin 0.64 No EtOH Quad respiratory screen negative Multiple imaging reports reviewed -negative CT of the cervical spine -chest x-ray unremarkable -swelling over the right lateral frontoparietal scalp, right periorbital region -head CT, no acute findings -bilateral knees, no acute finding -right shoulder no acute finding 2 blood cultures pending EKG showed too much artifact to be diagnostic REVIEW OF SYSTEMS: 12-point ROS completed with patient and negative unless otherwise stated in HPI or below. PHYSICAL EXAM: CONSTITUTIONAL: Dry mouth, good historian actually. decent spirits despite 's being tomorrow. VITAL SIGNS: see record. HEENT: right sided periorbital and temporal swelling/erythema. PERRL, EOMI, conjunctivae pink, no scleral icterus. Ears and nose externally normal. Pharynx normal. NECK: No JVD. No carotid bruit, no thyromegaly, no adenopathy. CHEST: Clear to auscultation bilaterally HEART: S1 and S2 normal. No harsh murmurs. Edema minimal MUSCULOSKELETAL: bilateral knees with contusions. NEURO: Cranial nerves intact. Grossly intact. No asymmetric findings. SKIN: No rashes, petechiae, concerning changes PSYCHIATRIC: Euthymic. ADMIT TO MEDSURG: FLOOR CARE DVT: Lovenox GI: PO intake Time spent: Today I spent 75 minutes seeing the patient, discussing the patient with ER staff, reviewing Expanse and EPIC notes/diagnostics, discussing the care plan with our care time that includes social work, PT/OT, pharmacy, RT, detention and documenting my impressions and plan in the medical record. [facility] Medical History (Updated 11/12/22 @ 22:17 by Naya Jiménez MD) Pulmonary arterial hypertension ?I27.21 - Secondary pulmonary arterial hypertension (ICD-10) COPD (chronic obstructive pulmonary disease) ?J44.9 - Chronic obstructive pulmonary disease, unspecified (ICD-10) Surgical History History of right hip replacement ?Z96.641 - Presence of right artificial hip joint (ICD-10) Social History (Updated 11/12/22 @ 19:49 by Dori Chino MD) Smoking Status: Former smoker What tobacco products do you use: cigarettes Smoking quit date/years: >15 years ago Do you use any of these nicotine containing products: None How often do you have a drink containing alcohol: never AUDIT-C Alcohol total score: 0 Non-prescribed substance use: denies use Meds Home Medications and Allergies Home Medications Medication Instructions Recorded Confirmed Type amlodipine 5 mg tablet 5 mg PO DAILY 01/26/22 11/12/22 History fluticasone 250 mcg-salmeterol 50 1 inh inhalation BID 01/26/22 11/12/22 History mcg/dose blistr powdr for inhalation (Advair Diskus) ipratropium 20 mcg-albuterol 100 1 puff inhalation QID 01/26/22 11/12/22 History mcg/actuation mist for inhalation (Combivent Respimat) levothyroxine 150 mcg tablet 150 mcg PO .AM 01/26/22 11/12/22 History triamterene 37.5 1 tab PO .AM 01/26/22 11/12/22 History mg-hydrochlorothiazide 25 mg tablet Allergies Allergy/AdvReac Type Severity Reaction Status Date / Time No Known Drug Allergies Allergy Verified 11/12/22 15:55 Exam Const: Vital Signs, click to edit/add: Vital Signs - 24 hr 11/12/22 15:50 11/12/22 15:50 11/12/22 15:51 Temperature 99.0 F Pulse Rate 95 96 Pulse Rate [Right Pulse Oximeter] 93 Respiratory Rate 18 Blood Pressure 141/93 H Blood Pressure [Ri ght Upper Arm] 141/93 H Pulse Oximetry 96 93 94 Oxygen Delivery Me od Room Air 11/12/22 16:00 11/12/22 16:02 11/12/22 16:15 Temperature Pulse Rate 91 91 90 Pulse Rate [Right Pulse Oximeter] Respiratory Rate Blood Pressure 156/83 H Blood Pressure [Ri ght Upper Arm] Pulse Oximetry 94 94 94 Oxygen Delivery Me thod 11/12/22 16:17 11/12/22 16:32 11/12/22 16:38 Temperature Pulse Rate 93 88 Pulse Rate [Right Pulse Oximeter] Respiratory Rate Blood Pressure 168/134 H 220/168 H Blood Pressure [Ri ght Upper Arm] Pulse Oximetry 91 91 Oxygen Delivery Me thod 11/12/22 16:44 11/12/22 16:45 11/12/22 16:45 Temperature Pulse Rate 95 90 Pulse Rate [Right Pulse Oximeter] Respiratory Rate Blood Pressure 150/79 H Blood Pressure [Ri ght Upper Arm] Pulse Oximetry 91 90 91 Oxygen Delivery Me thod 11/12/22 16:47 11/12/22 17:00 11/12/22 17:02 Temperature Pulse Rate 90 89 91 Pulse Rate [Right Pulse Oximeter] Respiratory Rate Blood Pressure 136/80 153/87 H Blood Pressure [Ri ght Upper Arm] Pulse Oximetry 89 93 86 L Oxygen Delivery Me thod 11/12/22 17:15 11/12/22 17:17 11/12/22 17:57 Temperature Pulse Rate 90 88 95 Pulse Rate [Right Pulse Oximeter] Respiratory Rate Blood Pressure 141/75 H Blood Pressure [Ri ght Upper Arm] Pulse Oximetry 91 92 92 Oxygen Delivery Me thod 11/12/22 17:58 11/12/22 18:00 11/12/22 18:01 Temperature Pulse Rate 97 95 98 Pulse Rate [Right Pulse Oximeter] Respiratory Rate Blood Pressure 108/77 116/86 Blood Pressure [Ri ght Upper Arm] Pulse Oximetry 93 92 92 Oxygen Delivery Me thod 11/12/22 18:02 11/12/22 18:15 11/12/22 18:17 Temperature Pulse Rate 101 H 96 93 Pulse Rate [Right Pulse Oximeter] Respiratory Rate Blood Pressure 133/74 Blood Pressure [Ri ght Upper Arm] Pulse Oximetry 93 91 92 Oxygen Delivery Me thod 11/12/22 18:18 11/12/22 18:32 11/12/22 18:33 Temperature Pulse Rate 95 92 Pulse Rate [Right Pulse Oximeter] Respiratory Rate Blood Pressure 136/72 Blood Pressure [Ri ght Upper Arm] Pulse Oximetry 93 92 Oxygen Delivery Me thod 11/12/22 18:45 11/12/22 18:46 11/12/22 18:47 Temperature Pulse Rate 95 97 96 Pulse Rate [Right Pulse Oximeter] Respiratory Rate Blood Pressure 121/78 Blood Pressure [Ri ght Upper Arm] Pulse Oximetry 92 93 93 Oxygen Delivery Me thod 11/12/22 19:00 11/12/22 19:02 11/12/22 19:19 Temperature Pulse Rate 97 93 110 H Pulse Rate [Right Pulse Oximeter] Respiratory Rate Blood Pressure 130/75 Blood Pressure [Ri ght Upper Arm] Pulse Oximetry 92 92 92 Oxygen Delivery Me thod 11/12/22 19:30 11/12/22 19:32 11/12/22 19:45 Temperature Pulse Rate 96 96 95 Pulse Rate [Right Pulse Oximeter] Respiratory Rate Blood Pressure 147/80 H Blood Pressure [Ri ght Upper Arm] Pulse Oximetry 93 93 94 Oxygen Delivery Me thod 11/12/22 19:47 11/12/22 20:00 11/12/22 20:02 Temperature Pulse Rate 94 89 91 Pulse Rate [Right Pulse Oximeter] Respiratory Rate Blood Pressure 151/78 H 155/76 H Blood Pressure [Ri ght Upper Arm] Pulse Oximetry 93 93 [facility] 20:15 11/12/22 20:17 11/12/22 20:30 Temperature Pulse Rate 94 92 94 Pulse Rate [Right Pulse Oximeter] Respiratory Rate Blood Pressure 138/83 Blood Pressure [Ri ght Upper Arm] Pulse Oximetry 93 93 93 Oxygen Delivery [facility] Hospitalist - H&P: Result Labs Labs: Short CBC 11/12/22 Range/Units 16:15 WBC 13.78 H (4.50-11.00) K/uL Hgb 12.9 L (13.5-17.5) gm/dL Hct 38.4 (37.0-53.0) % Plt Count 299 (140-440) K/uL BMP 11/12/22 16:15 Sodium 141 Potassium 3.5 L Chloride 104 Carbon Dioxide 26 BUN 52 H Creatinine 1.1 Glucose 134 H Calcium 9.5 Cardiac Enzymes 11/12/22 Range/Units 16:15 Total Creatine Kinase 8690 H (54-186) U/L Liver Function 11/12/22 Range/Units 16:15 Total Bilirubin 1.1 (0.1-1.5) mg/dL AST 242 H (12-35) U/L ALT 69 H (4-50) U/L Alkaline Phosphatase 126 (40-150) U/L Albumin 3.8 (3.3-5.0) g/dL Assessment and Plan Assessment and plan (1) Rhabdomyolysis: Problem comment: -evidence of volume depletion -CK greater than 8000 -IV fluid resuscitation ordered -check Mag, phosphorus -AST ALT elevated Status: Acute (2) Hypertension: Problem comment: -hold home meds for now Status: Acute (3) Bereavement: Problem comment: - 1 week ago. tomorrow. Status: Acute (4) Hypothyroidism: Problem comment: -continue home levothyroxine dosing Status: Acute (5) Fall: Problem comment: -date of injury/fall. 11/11/2022. Was on the floor from approximately 5:30 p.m. until 1:00 p.m. the next day. -unclear trigger-patient remembers tripping enter losing his balance Status: Acute (6) COPD (chronic obstructive pulmonary disease): Problem comment: -not hypoxic. Continue home medications Status: Acute (7) Pulmonary arterial hypertension: Problem comment: -noted Status: Acute (8) Urinary anastomotic stricture: Problem comment: 2016 - transferred from [place] for acute urinary retention - stricture found on cystoscopy Status: Acute
[2022-11-12 22:42] LABS: Magnesium* 2.5 mg/dL (1.5-2.6); Phosphorus* 4.9 mg/dL (2.5-4.5)
[2022-11-12] MEDS: 0.9 % SODIUM CHLORIDE 1000 ml 1,000 ML 250 ML IV (22:42)
[2022-11-13] VITALS (10 sets, daily range): BP systolic 128–149; BP diastolic 64–81; PULSE 80–97; RESP 16–22; TEMP 36.8–38.2; O2SAT 91–93
[2022-11-13] MEDS: 5 % DEX/0.45 SOD CHL+KCL20 mEq 1,000 ML 125 ML IV ×2 (02:48→17:42)
[2022-11-13] MEDS: PANTOPRAZOLE SODIUM 40 MG INJ IVP (02:48)
--- NOTE | 2022-11-13 05:22 | PC.NURSE ---
ADMISSION NOTE: Pt oriented to self, was confused on place/time. Pt aware that he fell but could not remember exact details of how or when he fell. Pt VSS. Pt complains of pain only with activity, 2 position turn and reposition in bed. Multiple scabs to patient's body r/t fall, pt's right side of his face is reddened and swollen, his right eye is swollen and he is unable to open it all the way. Latha area and buttocks is reddened, reddened area to left buttock, blanchable. Pt denies SOB, CP, and N/V.
[2022-11-13] MEDS: OMEPRAZOLE 20 MG CAPSULE DR 40 MG PO (06:33)
[2022-11-13 06:40] LABS: Basophils Absolute Auto 0.01 K/uL (0.00-0.30); Basophils Percent Auto 0.1 % (0.0-3.0); HCO3 VBG 25 mmol/L (21-28); Hematocrit 32.5 % (37.0-53.0); Hemoglobin* 10.9 gm/dL (13.5-17.5); Immature Granulocytes Abs Auto 0.01 K/uL (0.00-0.30); Immature Granulocytes Pct Auto 0.1 %; Lactate* 1.2 mmol/L (0.5-1.9); Lymphocytes Percent Auto 6.1 % (20-44); Mean Corpuscular HGB Conc 34 gm/dL (32-36); Mean Corpuscular Hemoglobin 32 pg (26-34); Mean Corpuscular Volume 95 fL (80-100); Neutrophils Percent Auto 84.7 % (42.0-72.0); PCO2 VBG 36 mmHG (40-50); PO2 VBG 72.2 mmHG (25-47); Platelet Count* 284 K/uL (140-440); Red Blood Count 3.41 m/uL (4.30-5.90); White Blood Count* 10.84 K/uL (4.50-11.00); pH VBG 7.455 (7.32-7.43)
[2022-11-13 06:42] LABS: Slide Review Reflex No
--- NOTE | 2022-11-13 06:57 | PC.NURSE ---
Pt with stable VS who fell and laid on the ground for a long time before anyone noticed. He has multiple abrasions on bilat lower extremeties. No drainage noted on these. He is inc of large amt of urine. No stool. Turned and repositioned q2h.
[2022-11-13 07:07] LABS: Albumin* 2.9 g/dL (3.3-5.0); Chloride* 106 mmol/L (96-114)
[2022-11-13 07:08] LABS: Potassium* 3.4 mmol/L (3.6-5.1); Sodium* 139 mmol/L (135-149)
[2022-11-13 07:09] LABS: Creatinine* 0.8 mg/dL (0.5-1.5); Est. Creatinine Clearance* 62.79; Estimated Glomerular Filt Rate 87 ml/min
[2022-11-13 07:10] LABS: Alanine Aminotransferase* 58 U/L (4-50); Alkaline Phosphatase* 91 U/L (40-150); Anion Gap 7 mEq/L (7-15); Aspartate Amino Transferase* 138 U/L (12-35); Bilirubin Total* 0.9 mg/dL (0.1-1.5); Blood Urea Nitrogen* 50 mg/dL (7-30); Carbon Dioxide* 26 mmol/L (20-32); Total Protein* 6.3 g/dL (6.0-8.3)
[2022-11-13 07:11] LABS: Calcium* 8.4 mg/dL (8.4-10.6); Glucose* 161 mg/dL (60-115)
[2022-11-13 07:20] LABS: Creatine Kinase* 2963 U/L (54-186)
[2022-11-13 07:24] LABS: Troponin I* 0.03 ng/mL (0.01-0.04)
[2022-11-13 07:27] LABS: Procalcitonin* 0.53 ng/mL (<0.50)
[2022-11-13 07:31] LABS: C Reactive Protein* 22.6 mg/dL (0.5-1.0)
[2022-11-13] MEDS: LEVOTHYROXINE 75 MCG TABLET 150 MCG PO (07:58)
[2022-11-13] MEDS: ACETAMINOPHEN 325 MG TABLET PO ×3 (08:36→22:00)
--- NOTE | 2022-11-13 10:33 | PC.SOCIAL ---
Addendum entered by Sangeetha Vaughan LCSW 11/13/22 14:55: Spoke to Ellen galaviz about plan for when Lion is ready to discharge. Ellen suggested that we contact her mother (Lion's [id number]-ada) Maryellen [phone], who would likely be his decision maker now. Social work to follow up as needed. Original Note: Social Work referral: Received call from Pastor Silke Elliott [phone]. Lion's , Lauren last week and the is this morning. This typewriter tester will try to coordinate live stream of at 11:00am. Bernice vacaeceEllen will visit during that time, per Lion's boarvl-xz-rcn, Maryellen [phone] whom this typewriter tester called. Pastor Edouard states that family will hold a another small service for Lion after he is home from the hospital. Social work to follow up as needed.
[2022-11-13 12:52] LABS: Appearance Urine Cloudy (Clear); Bilirubin Urine Negative (Negative); Blood Urine 3+ (Negative); Color Urine Yellow (Yellow); Glucose Urine Negative (Negative); Ketones Urine Negative (Negative); Leukocyte Esterase Urine 1+ (Negative); Nitrite Urine Negative (Negative); Protein Urine 2+ (Negative)
[2022-11-13 13:01] LABS: Bacteria Urine Many; Squamous Epithelial Cell Urine Few (None-Few); WBC Urine >100 (0-5)
--- NOTE | 2022-11-13 14:04 | PM.IMPN1 ---
Progress Note: A&P Assessment and plan (1) Fall: Problem details: -date of injury/fall. 11/11/2022. Was on the floor from approximately 5:30 p.m. until 1:00 p.m. the next day. -unclear trigger-patient remembers tripping enter losing his balance Status: Acute (2) Rhabdomyolysis: Problem details: -evidence of volume depletion -CK greater than 8000 -IV fluid resuscitation ordered -check Mag, phosphorus -AST ALT elevated Status: Acute (3) Gram-positive cocci bacteremia: Problem details: 03/16 blood culture sets growing Gram-positive cocci. Additional blood cultures ordered. Empirically treating with vancomycin pending further ID and sensitivities. Status: Acute (4) Urinary tract infection: Problem details: Await urine culture results. Treating empirically for possible UTI with ceftriaxone 1 g IV Q 24 hours. Status: Acute (5) Urinary anastomotic stricture: Problem details: 2015 - transferred from [place] for acute urinary retention - stricture found on cystoscopy Status: Acute (6) COPD (chronic obstructive pulmonary disease): Problem details: -not hypoxic. Continue home medications Status: Acute (7) Pulmonary arterial hypertension: Problem details: -noted Status: Acute (8) Bereavement: Problem details: - 1 week prior to admission. 11/13/2022. Status: Acute (9) Hypertension: Problem details: -hold home meds for now Status: Acute (10) Hypothyroidism: Problem details: -continue home levothyroxine dosing Status: Acute Plan 1. Reviewed impression with patient 2. Answered his questions 3. Continue with treatments as specified above 4. Continue monitor labs 5. Patient agreeable with above stated plans and recommendations Time Spent With Patient Total time spent: 50 minutes Subjective Time Seen by Provider: 10:00 Date Seen: 11/13/22 Interval history: Hospital day 2. History of present illness: 87-year-old with a history of a right hip fracture in 2016, hypertension an acute bereavement fell in his [address] yesterday evening [11/11/2022]. He approximates being on the floor from about 5:30 p.m. [11/11/2022] until this afternoon [11/12/2022] when finely his gagiwe-nr-ijr and another caregiver arrived to find him on the floor. He was found dehydrated, mildly disoriented, bruised and swollen right side of his face as well as bilateral knees. EMS was called and he was brought in for evaluation. Unfortunately, this gentleman just lost his a week ago. He was the planning her and this is set for tomorrow, 11/13/2022. ER COURSE: Labs, x-rays. Found to be in moderate rhabdomyolysis with some pre renal azotemia. Hospital medicine team was asked to admit. He remains rather weak and tired. Able to engage in conversation. Denies pain, cough, shortness of breath, nausea, vomiting, diarrhea, dysuria, urgency, frequency, hematuria. Not very interested in eating. Receiving IV fluids. Urinalysis obtained today with dipstick demonstrating 2+ blood and microscopic assessment demonstrated 5-10 red blood cells per high-power field, consistent with rhabdomyolysis. Additionally he is positive for leukocyte esterase and has greater than 100 white blood cells per high-power field suggestive of possible underlying urinary tract infection. One set of blood cultures obtained at time of admission is now growing Gram-positive cocci not otherwise specified. Awaiting additional testing and ID and sensitivities. Exam Narrative: Exam Narrative: I examine him in his hospital room. His room smells very strongly of urine. Appears comfortable and in no acute distress. Vision and hearing are grossly normal. Speech is soft. Alert, oriented to self, place, time, situation. Appears sad. Engages in conversation. He tells me about his 's services being scheduled for today. His about 1 week ago. Mood and affect are congruent. Lungs are clear to auscultation. Heart tones with regular rhythm. Abdomen with active bowel sounds, soft, nontender. Extremities without edema. No focal motor neurologic deficits. T-max today 100.8? F at noon. Const: Vital Signs, click to edit/add: Vital Signs - 24 hr 11/12/22 15:50 11/12/22 15:50 11/12/22 15:51 Temperature 99.0 F Pulse Rate 95 96 Pulse Rate [Left P ulse Oximeter] Pulse Rate [Right Pulse Oximeter] 93 Respiratory Rate 18 Blood Pressure 141/93 H Blood Pressure [Le ft Arm] Blood Pressure [Ri ght Upper Arm] 141/93 H Pulse Oximetry 96 93 94 Oxygen Delivery Me thod Room Air Oxygen Flow Rate 11/12/22 16:00 11/12/22 16:02 11/12/22 16:15 Temperature Pulse Rate 91 91 90 Pulse Rate [Left P ulse Oximeter] Pulse Rate [Right Pulse Oximeter] Respiratory Rate Blood Pressure 156/83 H Blood Pressure [Le ft Arm] Blood Pressure [Ri ght Upper Arm] Pulse Oximetry 94 94 94 Oxygen Delivery Me thod Oxygen Flow Rate 11/12/22 16:17 11/12/22 16:32 11/12/22 16:38 Temperature Pulse Rate 93 88 Pulse Rate [Left P ulse Oximeter] Pulse Rate [Right Pulse Oximeter] Respiratory Rate Blood Pressure 168/134 H 220/168 H Blood Pressure [Le ft Arm] Blood Pressure [Ri ght Upper Arm] Pulse Oximetry 91 91 Oxygen Delivery Me thod Oxygen Flow Rate 11/12/22 16:44 11/12/22 16:45 11/12/22 16:45 Temperature Pulse Rate 95 90 Pulse Rate [Left P ulse Oximeter] Pulse Rate [Right Pulse Oximeter] Respiratory Rate Blood Pressure 150/79 H Blood Pressure [Le ft Arm] Blood Pressure [Ri ght Upper Arm] Pulse Oximetry 91 90 91 Oxygen Delivery Me thod Oxygen Flow Rate 11/12/22 16:47 11/12/22 17:00 11/12/22 17:02 Temperature Pulse Rate 90 89 91 Pulse Rate [Left P ulse Oximeter] Pulse Rate [Right Pulse Oximeter] Respiratory Rate Blood Pressure 136/80 153/87 H Blood Pressure [Le ft Arm] Blood Pressure [Ri ght Upper Arm] Pulse Oximetry 89 93 86 L Oxygen Delivery Me thod Oxygen Flow Rate 11/12/22 17:15 11/12/22 17:17 11/12/22 17:57 Temperature Pulse Rate 90 88 95 Pulse Rate [Left P ulse Oximeter] Pulse Rate [Right Pulse Oximeter] Respiratory Rate Blood Pressure 141/75 H Blood Pressure [Le ft Arm] Blood Pressure [Ri ght Upper Arm] Pulse Oximetry 91 92 92 Oxygen Delivery Me thod Oxygen Flow Rate 11/12/22 17:58 11/12/22 18:00 11/12/22 18:01 Temperature Pulse Rate 97 95 98 Pulse Rate [Left P ulse Oximeter] Pulse Rate [Right Pulse Oximeter] Respiratory Rate Blood Pressure 108/77 116/86 Blood Pressure [Le ft Arm] Blood Pressure [Ri ght Upper Arm] Pulse Oximetry 93 92 92 Oxygen Delivery Me thod Oxygen Flow Rate 11/12/22 18:02 11/12/22 18:15 11/12/22 18:17 Temperature Pulse Rate 101 H 96 93 Pulse Rate [Left P ulse Oximeter] Pulse Rate [Right Pulse Oximeter] Respiratory Rate Blood Pressure 133/74 Blood Pressure [Le ft Arm] Blood Pressure [Ri ght Upper Arm] Pulse Oximetry 93 91 92 Oxygen Delivery Me thod Oxygen Flow Rate 11/12/22 18:18 11/12/22 18:32 11/12/22 18:33 Temperature Pulse Rate 95 92 Pulse Rate [Left P ulse Oximeter] Pulse Rate [Right Pulse Oximeter] Respiratory Rate Blood Pressure 136/72 Blood Pressure [Le ft Arm] Blood Pressure [Ri ght Upper Arm] Pulse Oximetry 93 92 Oxygen Delivery Me thod Oxygen Flow Rate 11/12/22 18:45 11/12/22 18:46 11/12/22 18:47 Temperature Pulse Rate 95 97 96 Pulse Rate [Left P ulse Oximeter] Pulse Rate [Right Pulse Oximeter] Respiratory Rate Blood Pressure 121/78 Blood Pressure [Le ft Arm] Blood Pressure [Ri ght Upper Arm] Pulse Oximetry 92 93 93 Oxygen Delivery Me thod Oxygen Flow Rate 11/12/22 19:00 11/12/22 19:02 11/12/22 19:19 Temperature Pulse Rate 97 93 110 H Pulse Rate [Left P ulse Oximeter] Pulse Rate [Right Pulse Oximeter] Respiratory Rate Blood Pressure 130/75 Blood Pressure [Le ft Arm] Blood Pressure [Ri ght Upper Arm] Pulse Oximetry 92 92 92 Oxygen Delivery Me thod Oxygen Flow Rate 11/12/22 19:30 11/12/22 19:32 11/12/22 19:45 Temperature Pulse Rate 96 96 95 Pulse Rate [Left P ulse Oximeter] Pulse Rate [Right Pulse Oximeter] Respiratory Rate Blood Pressure 147/80 H Blood Pressure [Le ft Arm] Blood Pressure [Ri ght Upper Arm] Pulse Oximetry 93 93 94 Oxygen Delivery Me thod Oxygen Flow Rate 11/12/22 19:47 11/12/22 20:00 11/12/22 20:02 Temperature Pulse Rate 94 89 91 Pulse Rate [Left P ulse Oximeter] Pulse Rate [Right Pulse Oximeter] Respiratory Rate Blood Pressure 151/78 H 155/76 H Blood Pressure [Le ft Arm] Blood Pressure [Ri ght Upper Arm] Pulse Oximetry 93 93 92 Oxygen Delivery Me thod Oxygen Flow Rate 11/12/22 20:15 11/12/22 20:17 11/12/22 20:30 Temperature Pulse Rate 94 92 94 Pulse Rate [Left P ulse Oximeter] Pulse Rate [Right Pulse Oximeter] Respiratory Rate Blood Pressure 138/83 Blood Pressure [Le ft Arm] Blood Pressure [Ri ght Upper Arm] Pulse Oximetry 93 93 93 Oxygen Delivery Me thod Oxygen Flow Rate 11/12/22 20:50 11/12/22 20:50 11/12/22 21:53 Temperature 99.4 F Pulse Rate Pulse Rate [Left P ulse Oximeter] 88 Pulse Rate [Right Pulse Oximeter] Respiratory Rate 20 18 18 Blood Pressure Blood Pressure [Le ft Arm] 141/82 H Blood Pressure [Ri ght Upper Arm] Pulse Oximetry 90 93 90 Oxygen Delivery Me thod Room Air Room Air Room Air Oxygen Flow Rate 11/12/22 21:53 11/12/22 23:00 11/13/22 03:00 Temperature 99.8 F H Pulse Rate 90 Pulse Rate [Left P ulse Oximeter] 82 Pulse Rate [Right Pulse Oximeter] Respiratory Rate 22 Blood Pressure Blood Pressure [Le ft Arm] 143/64 H Blood Pressure [Ri ght Upper Arm] Pulse Oximetry 88 93 Oxygen Delivery Me thod Nasal Cannula Oxygen Flow Rate 1 11/13/22 05:03 11/13/22 07:40 11/13/22 08:30 Temperature Pulse Rate 97 Pulse Rate [Left P ulse Oximeter] Pulse Rate [Right Pulse Oximeter] Respiratory Rate 22 16 Blood Pressure Blood Pressure [Le ft Arm] Blood Pressure [Ri ght Upper Arm] Pulse Oximetry 92 Oxygen Delivery Me thod Nasal Cannula Oxygen Flow Rate 1 11/13/22 08:33 11/13/22 12:00 Temperature 98.7 F 100.8 F H Pulse Rate Pulse Rate [Left P ulse Oximeter] 92 94 Pulse Rate [Right Pulse Oximeter] Respiratory Rate 18 16 Blood Pressure Blood Pressure [Le ft Arm] 145/81 H 132/74 Blood Pressure [Ri ght Upper Arm] Pulse Oximetry 91 91 Oxygen Delivery Me thod Room Air Room Air Oxygen Flow Rate Labs Labs: Laboratory Results - last 24 hr 08/11/12/22 11/12/22 16:15 16:32 17:57 WBC 13.78 H RBC 4.01 L Hgb 12.9 L Hct 38.4 MCV 96 MCH 32 MCHC 34 RDW Coeff of Alec 12.7 Plt Count 299 Neut % (Auto) 87.9 H Lymph % (Auto) 4.3 L [place] % (Auto) 7.4 Eos % (Auto) 0.0 Baso % (Auto) 0.1 Neut # (Auto) 12.10 H Lymph # (Auto) 0.60 L [place] # (Auto) 1.00 H Eos # (Auto) 0.00 Baso # (Auto) 0.00 Abs Immat Gran (auto) 0.00 Imm/Tot Granulo (auto) 0.3 INR VBG pH VBG pCO2 VBG pO2 VBG HCO3 Sodium 141 Potassium 3.5 L Chloride 104 Carbon Dioxide 26 Anion Gap 11 BUN 52 H Creatinine 1.1 Estimated Creat Clear 53.89 Estimated GFR 66 Glucose 134 H Lactate 2.0 H Calcium 9.5 Phosphorus Magnesium Total Bilirubin 1.1 AST 242 H ALT 69 H Alkaline Phosphatase 126 Total Creatine Kinase 8690 H Troponin I C-Reactive Protein 21.5 H Total Protein 7.7 Albumin 3.8 Procalcitonin 0.64 H Urine Color Urine Appearance Urine pH Ur Specific [place] Urine Protein Urine Glucose (UA) Urine Ketones Urine Blood Urine Nitrite Urine Bilirubin Urine Urobilinogen Ur Leukocyte Esterase Urine RBC Urine WBC Ur Squamous Epith Cells Urine Bacteria Ethyl Alcohol SARS-CoV-2 (PCR) Negative SARS-CoV-2 Influenza Type A (PCR) Negative PCR FLU A Influenza Type B (PCR) Negative PCR FLU B RSV (PCR) Negative PCR RSV Lab Acknowledgement Test Added POC Troponin I 0.05 H 11/12/22 11/12/22 11/12/22 19:31 19:45 22:29 WBC RBC Hgb Hct MCV MCH MCHC RDW Coeff of Alec Plt Count Neut % (Auto) Lymph % (Auto) [place] % (Auto) Eos % (Auto) Baso % (Auto) Neut # (Auto) Lymph # (Auto) [place] # (Auto) Eos # (Auto) Baso # (Auto) Abs Immat Gran (auto) Imm/Tot Granulo (auto) INR VBG pH VBG pCO2 VBG pO2 VBG HCO3 Sodium Potassium Chloride Carbon Dioxide Anion Gap BUN Creatinine Estimated Creat Clear Estimated GFR Glucose Lactate Calcium Phosphorus 4.9 H Magnesium 2.5 Total Bilirubin AST ALT Alkaline Phosphatase Total Creatine Kinase Troponin I C-Reactive Protein Total Protein Albumin Procalcitonin Urine Color Urine Appearance Urine pH Ur Specific [place] Urine Protein Urine Glucose (UA) Urine Ketones Urine Blood Urine Nitrite Urine Bilirubin Urine Urobilinogen Ur Leukocyte Esterase Urine RBC Urine WBC Ur Squamous Epith Cells Urine Bacteria Ethyl Alcohol < 0.01 L SARS-CoV-2 (PCR) Influenza Type A (PCR) Influenza Type B (PCR) RSV (PCR) Lab Acknowledgement Test Added Test Added POC Troponin I 0.03 11/13/22 11/13/22 05:38 12:38 WBC 10.84 RBC 3.41 L Hgb 10.9 L Hct 32.5 L MCV 95 MCH 32 MCHC 34 RDW Coeff of Alec 13.0 Plt Count 284 Neut % (Auto) 84.7 H Lymph % (Auto) 6.1 L [place] % (Auto) 9.0 Eos % (Auto) 0.0 Baso % (Auto) 0.1 Neut # (Auto) 9.20 H Lymph # (Auto) 0.70 L [place] # (Auto) 1.00 H Eos # (Auto) 0.00 Baso # (Auto) 0.01 Abs Immat Gran (auto) 0.01 Imm/Tot Granulo (auto) 0.1 INR 1.60 H VBG pH 7.455 H VBG pCO2 36 L VBG pO2 72.2 H VBG HCO3 25 Sodium 139 Potassium 3.4 L Chloride 106 Carbon Dioxide 26 Anion Gap 7 BUN 50 H Creatinine 0.8 Estimated Creat Clear 62.79 Estimated GFR 87 Glucose 161 H Lactate 1.2 Calcium 8.4 Phosphorus Magnesium Total Bilirubin 0.9 AST 138 H ALT 58 H Alkaline Phosphatase 91 Total Creatine Kinase 2963 H Troponin I 0.03 C-Reactive Protein 22.6 H Total Protein 6.3 Albumin 2.9 L Procalcitonin 0.53 H Urine Color Yellow Urine Appearance Cloudy A Urine pH 6.0 Ur Specific [place] 1.020 Urine Protein 2+ A Urine Glucose (UA) Negative Urine Ketones Negative Urine Blood 3+ A Urine Nitrite Negative Urine Bilirubin Negative Urine Urobilinogen 1.0 Ur Leukocyte Esterase 1+ A Urine RBC 5-10 A Urine WBC >100 A Ur Squamous Epith Cells Few Urine Bacteria Many A Ethyl Alcohol SARS-CoV-2 (PCR) Influenza Type A (PCR) Influenza Type B (PCR) RSV (PCR) Lab Acknowledgement POC Troponin I Imaging CT cervical spine: Radiologist's impression: 11/12/2022 IMPRESSION: 1. No acute fracture or traumatic malalignment of the cervical spine. 2. Spondylotic changes of the cervical spine as described above. 3. Emphysema in the lung apices. CT scan - head: Radiologist's impression: 11/12/2022 IMPRESSION: 1. No acute intracranial findings. 2. Mild generalized cerebral volume loss and mild chronic small vessel ischemic disease. 3. Soft tissue swelling across the forehead, right lateral frontoparietal scalp, and right periorbital region. CT scan face: Radiologist's impression: 11/12/2022 IMPRESSION: 1. Soft tissue swelling across the forehead, right lateral frontoparietal scalp, and right periorbital region. 2. No acute fracture identified. Chest x-ray: Radiologist's impression: 11/12/2022 Impression: No acute cardiopulmonary process. Specifically, no traumatic injury. Bilateral knee x-ray: Radiologist's impression: 11/12/2022 Impression: No acute fracture or dislocation bilaterally. Right shoulder x-ray: Radiologist's impression: 11/12/2022 Impression: 1. No acute fracture or dislocation. 2. Marked osteoarthritis of the glenohumeral joint.Narrowing of the acromiohumeral interval suggestive of rotator cuff pathology.
--- NOTE | 2022-11-13 14:39 | NUTR.NU ---
RD with RN skin risk consult. Pt admitted s/p fall - rhabdo and gram postive blood culture. Per RN no open wound. RN states pt ate 100% of B of just oatmeal. Pt stated he wanted to take it easy because he hasn't eaten for a day. Visit with pt he states he ate his tomato soup and grilled cheese. States his appetite is good, he is just being careful. Denies concerns for texture (has his dentures here), likes meat and eggs. States he does not need any extra supplements. Will follow per nutrition department protocol.
[2022-11-13] MEDS: cefTRIAXone 1 GM in 0.9 % SODIUM CHLORIDE Mini-bag 100 ML IVPB (14:49)
--- NOTE | 2022-11-13 18:03 | PC.NURSE ---
End of shift- VS on room air. SOB up exertion, although stats fine 90-93%. Increasing R shoulder pain throughout the shift ranging from 3-8/10. PRN Tylenol given 2x. No external ROM with R extremity due to shoulder pain, can only hold at 10 degree angle before pain is too severe. He has hx of rotator cuff injury but states it was not this bad prior to the fall. A&Ox3, q2 reposition and incontinence check... barrier cream applied to groin and buttocks for redness. UA was completed today found many bacteria. Blood cultures were positive as well- IV abx were given see MAY. Had a mild fever this afternoon of 100.8 after Tylenol was given returned to 98.6. Bilateral knee scab wounds from the fall. Up to the chair with heavy Ax2 w/ gait belt and walker. He needs motivation that he is able to walk and to move safely. PO fluid intake is adequate. Incontinent at baseline of urine, BM incontinence is new for him... 2 smears and 1 large loose BM today. Calls appropriately. Side note: His about a week ago... patient was able to watch the live service this afternoon.
[2022-11-13] MEDS: ENOXAPARIN 40 MG/0.4 ML INJ SUBCUT (22:01)
[2022-11-14] VITALS (22 sets, daily range): BP systolic 86–152; BP diastolic 45–85; PULSE 73–90; RESP 16–22; TEMP 36.4–37.1; O2SAT 90–97
[2022-11-14] MEDS: 5 % DEX/0.45 SOD CHL+KCL20 mEq 1,000 ML 125 ML IV (01:49)
[2022-11-14] MEDS: NAPROXEN 250 MG TABLET 500 MG PO (01:50)
[2022-11-14 06:08] LABS: Lactate* 1.1 mmol/L (0.5-1.9)
[2022-11-14 06:13] LABS: Hematocrit 30.6 % (37.0-53.0); Hemoglobin* 10.3 gm/dL (13.5-17.5); Mean Corpuscular HGB Conc 34 gm/dL (32-36); Mean Corpuscular Hemoglobin 32 pg (26-34); Mean Corpuscular Volume 96 fL (80-100); Platelet Count* 238 K/uL (140-440); Red Blood Count 3.19 m/uL (4.30-5.90); Slide Review Reflex No; White Blood Count* 10.51 K/uL (4.50-11.00)
[2022-11-14 06:41] LABS: Albumin* 2.6 g/dL (3.3-5.0); Chloride* 105 mmol/L (96-114); Potassium* 3.4 mmol/L (3.6-5.1); Sodium* 137 mmol/L (135-149)
[2022-11-14 06:43] LABS: Creatinine* 0.7 mg/dL (0.5-1.5); Est. Creatinine Clearance* 62.79; Estimated Glomerular Filt Rate 90 ml/min
[2022-11-14 06:44] LABS: Alanine Aminotransferase* 52 U/L (4-50); Alkaline Phosphatase* 90 U/L (40-150); Anion Gap 7 mEq/L (7-15); Aspartate Amino Transferase* 87 U/L (12-35); Bilirubin Total* 0.7 mg/dL (0.1-1.5); Blood Urea Nitrogen* 29 mg/dL (7-30); Carbon Dioxide* 25 mmol/L (20-32); Creatine Kinase* 1098 U/L (54-186); Glucose* 144 mg/dL (60-115); Total Protein* 5.9 g/dL (6.0-8.3)
[2022-11-14 06:45] LABS: Calcium* 8.1 mg/dL (8.4-10.6)
[2022-11-14 06:56] LABS: Troponin I* 0.05 ng/mL (0.01-0.04)
[2022-11-14 07:05] LABS: C Reactive Protein* 23.5 mg/dL (0.5-1.0)
--- NOTE | 2022-11-14 07:13 | PC.NURSE ---
Shift note: Pt c/o pain in shoulder and right lower back. Heavy assist of 2 to turn and reposition in bed, he is unable to turn or assist in any way even after PRN pain meds administration. Incontinent of stool and urine
[2022-11-14] MEDS: LEVOTHYROXINE 75 MCG TABLET 150 MCG PO (07:45)
[2022-11-14] MEDS: OMEPRAZOLE 20 MG CAPSULE DR 40 MG PO (08:32)
[2022-11-14] MEDS: cefTRIAXone 1 GM in 0.9 % SODIUM CHLORIDE Mini-bag 100 ML IVPB (10:08)
[2022-11-14] MEDS: POTASSIUM BICARB 25 MEQ EFFERVESCENT TAB PO (10:54)
--- NOTE | 2022-11-14 11:21 | CRLHL7_ITS ---
For Patients: As a result of the Century Cures Act, medical imaging exams and procedure reports are released immediately into your electronic medical record. You may view this report before your referring provider. If you have questions, please contact your health care provider. INDICATION: Fever, bacteremia, left buttock tenderness, rule out infection/abscess. TECHNIQUE: CT chest, abdomen and pelvis acquired with 98 mL Isovue 370 IV contrast. COMPARISON: 12/10/[address] FINDINGS: CHEST: Cardiovascular structures: Heart size is normal. Thoracic aorta and main pulmonary artery are normal in caliber. Coronary artery calcification. Mediastinum and elaine: No mass or adenopathy. Lungs and pleura: Emphysema. Trace right pleural effusion. Lungs clear. Chest wall and axilla: No mass or adenopathy. Bones: Severe right and moderate left shoulder arthritis. ABDOMEN AND PELVIS: Liver: Unremarkable. Gallbladder and bile ducts: Unremarkable. Pancreas: Unremarkable. Spleen: Unremarkable. Adrenal glands: Unremarkable. Kidneys: Tiny bilateral nonobstructing stones. Bilateral cysts. GI tract: Colonic diverticulosis without diverticulitis. Vascular structures: Atherosclerosis. Lymph nodes: Several mildly enlarged left iliac chain lymph nodes are likely reactive. Miscellaneous: Approximately 12 cm fluid collection with surrounding enhancement and edema in the left buttock extending from the midline to just under the skin. This is most likely a perirectal abscess. Pelvic Organs: Small amount of air within the urinary bladder wall compatible with emphysematous cystitis. Right-sided hydrocele. Bones: Right hip arthroplasty. IMPRESSION: 1. Large left-sided perirectal abscess. 2. Emphysematous cystitis. 3. Bilateral nonobstructing nephrolithiasis. 4. Emphysema and trace right pleural effusion. Dictated by Yasir Cooper MD @ 11/14/2022 3:21:57 PM Please note that all CT scans at this facility use dose modulation, iterative reconstruction, and/or weight-based dosing when appropriate to reduce radiation dose to as low as reasonably achievable. Dictated by: Yasir Cooper MD @ 11/14/2022 15:22:26 (Electronically Signed)
--- NOTE | 2022-11-14 11:30 | CRLHL7_ITS ---
For Patients: As a result of the Century Cures Act, medical imaging exams and procedure reports are released immediately into your electronic medical record. You may view this report before your referring provider. If you have questions, please contact your health care provider. INDICATION: Recent fall, shoulder pain. TECHNIQUE: Noncontrast CT right shoulder. COMPARISON: 11/12/2022 shoulder x-ray. FINDINGS: No acute shoulder fracture. No dislocation. 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 Complete loss of joint space, large osteophytes, and marked subchondral sclerosis and cystic change. Multiple loose bodies in the joint and subcoracoid recess. Moderate AC joint arthrosis. 9.3 x 2.0 cm cartilage lesion in the right proximal humeral shaft compatible with a benign enchondroma. Shoulder joint effusion. Tiny right pleural effusion noted. IMPRESSION: 1. No acute findings in the right shoulder. 2. Severe glenohumeral arthritis. 3. 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 Dictated by Yasir Cooper MD @ 11/14/2022 3:08:39 PM Please note that all CT scans at this facility use dose modulation, iterative reconstruction, and/or weight-based dosing when appropriate to reduce radiation dose to as low as reasonably achievable. Dictated by: Yasir Cooper MD @ 11/14/2022 15:08:52 (Electronically Signed)
[2022-11-14] MEDS: ACETAMINOPHEN 325 MG TABLET PO (12:22)
--- NOTE | 2022-11-14 12:58 | P.IMPN_ITS ---
Progress Note: A&P Assessment and plan (1) Urinary retention: Problem details: History of urethral stricture. Now with nearly 700 mL of residual urine. Incontinent of bowel and bladder. Place Rodriguez catheter. Status: Acute (2) Urinary tract infection: Problem details: Awaiting urine culture. Ceftriaxone. Status: Acute (3) Gram-positive cocci bacteremia: Problem details: blood cultures growing Gram-positive cocci. Additional blood cultures ordered. Empirically treating with vancomycin pending further ID and sensitivities. Source of the bacteremia remains uncertain at this time. Status: Acute (4) Urinary anastomotic stricture: Problem details: 2016 - transferred from [place] for acute urinary retention - stricture found on cystoscopy. Likely cause of current urinary retention. Status: Acute (5) Pulmonary arterial hypertension: Problem details: -noted Status: Acute (6) COPD (chronic obstructive pulmonary disease): Problem details: -not hypoxic. Continue home medications Status: Acute (7) Bereavement: Problem details: - 1 week prior to admission. yesterday, November 13 Status: Acute (8) Hypertension: Problem details: Restart home meds as tolerated Status: Acute (9) Rhabdomyolysis: Problem details: CK coming down. No evidence of LAKISHA -evidence of volume depletion -CK greater than 8000 Due to concern about volume overload will stop IV fluids -check Mag, phosphorus -AST ALT elevated Status: Acute (10) Rotator cuff arthropathy of both shoulders: Problem details: Appears to have bilateral rotator cuff injury. Only the right shoulder bothers him but both shoulders have marked weakness in limitation in motion. Status: Acute (11) Disability: Problem details: Patient current requiring an EZ stand to transfer. Also unable to use his right shoulder This is a marked increase in disability over the last week. Continue in to investigate his disabilities as well as his bacteremia. Status: Acute Plan Continue in hospital for investigating and treating bacteremia, acute on chronic right shoulder pain and right upper extremity loss of function and generalized weakness. Time Spent With Patient Total time spent: Total time spent today is 60 minutes, 45 minutes in coordination of care discussing with patient and other providers ongoing investigation of his disabilities and bacteremia and urinary retention Subjective Date Seen: 11/14/22 Interval history: 87-year-old male admitted to the hospital after being found down at home after a prolonged period of being on the floor. Patient tells me that he thinks that he was getting ill perhaps a week before his fall. At the time of the fall he does not think he had unconsciousness. He felt like his left knee gave out however. He did feel hot and cold but was not aware of a fever. He reports chronic shoulder problems. He has a very painful right shoulder and reports minimal movement or strength in his right arm. This is gotten worse in the last few days. Not long ago he was using his right arm for a variety of tasks. He has also had limited motion in his shoulder and pain in his shoulder. He appears to have a history of bilateral rotator cuff tears but only his right arm is so painful he can not use it anymore. He is not aware of a new injury to his right shoulder and radiographs from the emergency department did not show new fracture. Nursing staff or concern is left leg was not working well. He did acknowledge his left knee gave out when he fell couple days ago. He reports bilateral knee pain which is longstanding. He did have some abrasions on his right knee from the fall which bother him a little bit. He has a lesion on his left buttock cheek which has been present for while it is painful when he sits on it. He is not aware of an injury to that skin and there is no apparent skin breakdown in that area. Reports no headache, sore throat, shortness of breath, chest pain, abdominal pain, nausea, vomiting. He has had incontinence of bowel and bladder. His stools are loose. His a history of a urinary stricture and his bladder scan to day shows almost 700 mL of retained urine. Since admission he has been treated for rhabdomyolysis with a CK coming down. His creatinine is stable. He has subsequently grown Gram-positive cocci from his blood cultures and identification and sensitivity are pending. He has been treated with vancomycin and ceftriaxone. Exam Narrative: Exam Narrative: He is alert and appears in no distress. He is oriented to his circumstances and gives fairly good history of recent events though somewhat limited in the details around the fall and laying on the floor. Head is without apparent trauma. Eyes are normal. Extraocular movements are full. Visual morales are intact. Oropharynx with dry mucous membranes. He is edentulous. Tongue is midline. No facial asymmetry. Neck is supple without mass or adenopathy. Respirations are clear to auscultation. Cardiovascular: S1, S2, no murmur gallop or rub. Abdomen: Bowel sounds active. Abdomen is soft without tenderness or mass. External genitalia and perineum are unremarkable. Buttocks examined he has some erythema and induration of the skin of the left buttock basically these tissue overlying the ischial spine on the left. No obvious abscess. Right shoulder is examined. He has diffuse tenderness over his entire shoulder. No erythema. He does not tolerate any motion in the shoulder and only minimal motion as tolerated in the elbow. Does tolerate supination and pronation and only minimal flexion extension. On the right elbow. Forearm is nontender he tolerates wrist flexion extension with good strength and no significant pain. Hand is moderately edematous on the right. Intact pulses in the right wrist. Intact sensation in the right arm. Left arm examination shows he is abduct and flex about 45? limited by weakness. Tolerates passive range of motion above 90?. Motion and strength in the elbow is normal motion and strength in the wrist is normal intact sensation and pulses. Right hip is mildly weak in hip flexion without significant pain. Right lower extremity appears normal except for abrasions over the anterior and lateral knee. These appear to be healing well without obvious infection have prominent eschar. He tolerates motion the knee without significant discomfort. No obvious effusion. Palpation over the knee leg ankle and foot is unremarkable. Intact pulses. Good strength in the knee and ankle on the right. Left lower extremities examined. Mildly weak in left hip flexion. Strength in the left knee and ankle are full and similar to the right side. Palpation over the knee leg and ankle without tenderness on the left side. No obvious joint effusions. Intact pulses. He is observed to stand with the assistance of 2 or and EZ stand. He moves with great deal of difficulty. Const: Vital Signs, click to edit/add: Vital Signs - 24 hr 11/13/22 14:52 11/13/22 15:09 11/13/22 19:00 Temperature 98.3 F 98.8 F Pulse Rate 97 Pulse Rate [Left P ulse Oximeter] 93 80 Respiratory Rate 18 22 Blood Pressure [Le ft Arm] 128/77 149/80 H Pulse Oximetry 93 91 Oxygen Delivery Me thod Room Air Room Air 11/13/22 23:00 11/13/22 23:00 11/13/22 23:00 Temperature Pulse Rate 90 Pulse Rate [Left P ulse Oximeter] 80 Respiratory Rate 22 Blood Pressure [Le ft Arm] Pulse Oximetry 91 Oxygen Delivery Me thod 11/13/22 23:00 11/14/22 03:00 11/14/22 05:03 Temperature Pulse Rate Pulse Rate [Left P ulse Oximeter] 80 79 Respiratory Rate 22 20 Blood Pressure [Le ft Arm] 128/73 Pulse Oximetry 91 90 91 Oxygen Delivery Me thod Room Air Room Air Room Air 11/14/22 07:30 11/14/22 07:47 11/14/22 11:46 Temperature 98.2 F 97.5 F L Pulse Rate 78 Pulse Rate [Left P ulse Oximeter] 80 85 Respiratory Rate 18 16 Blood Pressure [Le ft Arm] 152/73 H 148/85 H Pulse Oximetry 90 96 Oxygen Delivery Me thod Room Air Room Air Documenting provider has reviewed patient's vital signs: yes Labs Labs: Laboratory Results - last 24 hr 11/13/22 11/14/22 12:38 05:40 WBC 10.51 RBC 3.19 L Hgb 10.3 L Hct 30.6 L MCV 96 MCH 32 MCHC 34 Plt Count 238 Sodium 137 Potassium 3.4 L Chloride 105 Carbon Dioxide 25 Anion Gap 7 BUN 29 Creatinine 0.7 Estimated Creat Clear 62.79 Estimated GFR 90 Glucose 144 H Lactate 1.1 Calcium 8.1 L Total Bilirubin 0.7 AST 87 H ALT 52 H Alkaline Phosphatase 90 Total Creatine Kinase 1098 H Troponin I 0.05 H C-Reactive Protein 23.5 H Total Protein 5.9 L Albumin 2.6 L Urine Color Yellow Urine Appearance Cloudy A Urine pH 6.0 Ur Specific [place] 1.020 Urine Protein 2+ A Urine Glucose (UA) Negative Urine Ketones Negative Urine Blood 3+ A Urine Nitrite Negative Urine Bilirubin Negative Urine Urobilinogen 1.0 Ur Leukocyte Esterase 1+ A Urine RBC 5-10 A Urine WBC >100 A Ur Squamous Epith Cells Few Urine Bacteria Many A
[2022-11-14] MEDS: lidocaine HCL 2 % JELLY (TOP) STERILE 6 ML UR (13:14)
[2022-11-14] MEDS: PIPERACILLIN/TAZOBACTAM 3.375 GM in 0.9 % SODIUM CHLORIDE Mini-bag 100 ML IVPB ×2 (16:49→22:14)
[2022-11-14] MEDS: LACTATED RINGERS 1000 ML 1,000 ML 125 ML IV (18:36)
--- NOTE | 2022-11-14 18:38 | PC.NURSE ---
End of shift- VS on RA. Garbled speech, but understandable. A&Ox3, reported R shoulder/arm pain with movement. He will yell out ouch. PRN Tylenol given 2x. Up w/ Ax2 and the EZ stand. Incontinent of bladder and bowel. 2 soft stools today. He voids still. Bladder scan was showed urinary retention of 669cc. Rodriguez insertion was order by DR Ramirez, unsuccessful attempts to insert due to anatomy. Bilateral knee wounds with scabbing as well as ecchymosis. R hand swelling. His mouth gets quite dry, mouth moisturizer at bedside. Got him washed up this AM. Q2 reposition/ check and change, barrier cream applied to his groin/ buttocks each brief change. He had a shoulder/chest/pelvis CT today, a perirectal abscess was found. NPO since 1400, and surgery is set for 1999. LR running @ 125, pre op checklist is completed. Resting in bed with call light within reach. His family visited today as well. Update was given to caregiver Deisy regarding his care/surgery this evening. She would like to be called by the surgeon once the surgery is complete.
--- NOTE | 2022-11-14 19:53 | PM.GSCN ---
History of Present Illness Consult details Date Seen: 11/14/22 Consult date: 11/14/22 Narrative: Patient is an 87-year-old male who presented to the emergency department after being found down in home. He was found dehydrated and disoriented. Since being in the hospital he has been worked up for bacteremia and associated sepsis. Patient is not the best historian, but does report pain in his buttock for ?quite a while. He does have a history of a boil in his neck, but reports never having anything like this before. Since being admitted the he has been given fluids, with initial rectum mild lysis CK levels trending down. His renal function is stable and vital signs have been stable. Review of Systems Status of ROS: Reports: 6 or more systems reviewed and unremarkable except as noted in History and below [facility] Medical History (Updated 11/14/22 @ 19:57 by Ruthann Espaan MD) Disability Rotator cuff arthropathy of both shoulders ?M12.811 - Other specific arthropathies, not elsewhere classified, right shoulder (ICD-10) ?M12.812 - Other specific arthropathies, not elsewhere classified, left shoulder (ICD-10) Urinary retention ?R33.9 - Retention of urine, unspecified (ICD-10) Pulmonary arterial hypertension ?I27.21 - Secondary pulmonary arterial hypertension (ICD-10) COPD (chronic obstructive pulmonary disease) ?J44.9 - Chronic obstructive pulmonary disease, unspecified (ICD-10) Surgical History History of right hip replacement ?Z96.641 - Presence of right artificial hip joint (ICD-10) Social History (Updated 11/12/22 @ 19:49 by Dori Chino MD) What is your current living situation?: I presently have a place to live Problems where you live: no known problems Problems where you live details: N/A In the past 12 months, utilities in danger of being shut off: no In the past 12 mos, have been you worried that your food would run out before you had money to buy more?: never true In the past 12 mos, the food you bought just didn't last and you didn't have money to buy more?: never true Smoking Status: Former smoker What tobacco products do you use: cigarettes Smoking quit date/years: >15 years ago Do you use any of these nicotine containing products: None How often do you have a drink containing alcohol: never AUDIT-C Alcohol total score: 0 Non-prescribed substance use: denies use Caffeine: Yes (one cup per day coffee) How often does anyone, including family, friends and others, physically hurt you: never How often does anyone, including family, friends and others, insult or talk down to you: never How often does anyone, including family, friends and others, threaten you with harm: never How often does anyone, including family, friends and others, scream or curse at you: never Meds Home Medications and Allergies Home Medications Medication Instructions Recorded Confirmed Type amlodipine 5 mg tablet 5 mg PO DAILY 01/26/22 11/12/22 History fluticasone 250 mcg-salmeterol 50 1 inh inhalation BID 01/26/22 11/12/22 History mcg/dose blistr powdr for inhalation (Advair Diskus) ipratropium 20 mcg-albuterol 100 1 puff inhalation QID 01/26/22 11/12/22 History mcg/actuation mist for inhalation (Combivent Respimat) levothyroxine 150 mcg tablet 150 mcg PO DAILY 01/26/22 11/13/22 History triamterene 37.5 1 tab PO DAILY 01/26/22 11/13/22 History mg-hydrochlorothiazide 25 mg tablet aspirin 81 mg tablet,delayed 81 mg PO DAILY 11/13/22 11/13/22 History release (Adult Aspirin Regimen) cholecalciferol (vitamin D3) 50 50 mcg PO DAILY 11/13/22 11/13/22 History mcg (2,000 unit) capsule cyanocobalamin (vitamin B-12) 1,000 mcg PO DAILY 11/13/22 11/13/22 History 1,000 mcg tablet triamcinolone acetonide 0.5 % 1 applic topical BID PRN 11/13/22 11/13/22 History topical ointment Allergies Allergy/AdvReac Type Severity Reaction Status Date / Time No Known Drug Allergies Allergy Verified 11/14/22 13:36 Exam Narrative: Exam Narrative: General: Alert and oriented, nontoxic in appearance Respiratory: Equal breath rise bilaterally, maintained on room air CV: Regular rhythm rate, well perfused : Deferred at this time for examination in the operating room. Const: Vital Signs, click to edit/add: Vital Signs - 24 hr 11/13/22 23:00 11/13/22 23:00 11/13/22 23:00 Temperature Pulse Rate 90 Pulse Rate [Left P ulse Oximeter] 80 Respiratory Rate 22 Blood Pressure [Le ft Arm] Pulse Oximetry 91 Oxygen Delivery Me thod 11/13/22 23:00 11/14/22 03:00 11/14/22 05:03 Temperature Pulse Rate Pulse Rate [Left P ulse Oximeter] 80 79 Respiratory Rate 22 20 Blood Pressure [Le ft Arm] 128/73 Pulse Oximetry 91 90 91 Oxygen Delivery Me thod Room Air Room Air Room Air 11/14/22 07:30 11/14/22 07:47 11/14/22 11:46 Temperature 98.2 F 97.5 F L Pulse Rate 78 Pulse Rate [Left P ulse Oximeter] 80 85 Respiratory Rate 18 16 Blood Pressure [Le ft Arm] 152/73 H 148/85 H Pulse Oximetry 90 96 Oxygen Delivery Md thod Room Air Room Air 11/14/22 15:43 11/14/22 19:00 Temperature 97.8 F 98.7 F Pulse Rate Pulse Rate [Left P ulse Oximeter] 84 80 Respiratory Rate 18 20 Blood Pressure [Le ft Arm] 130/82 117/83 Pulse Oximetry 93 90 Oxygen Delivery Me thod Room Air Room Air Results Labs Labs: Abnormal lab results 11/14/22 Range/Units 05:40 RBC 3.19 L (4.30-5.90) m/uL Hgb 10.3 L (13.5-17.5) gm/dL Hct 30.6 L (37.0-53.0) % Potassium 3.4 L (3.6-5.1) mmol/L Glucose 144 H (60-115) mg/dL Calcium 8.1 L (8.4-10.6) mg/dL AST 87 H (12-35) U/L ALT 52 H (4-50) U/L Total Creatine Kinase 1098 H (54-186) U/L Troponin I 0.05 H (0.01-0.04) ng/mL C-Reactive Protein 23.5 H (0.5-1.0) mg/dL Total Protein 5.9 L (6.0-8.3) g/dL Albumin 2.6 L (3.3-5.0) g/dL Diabetes panel 11/14/22 Range/Units 05:40 Sodium 137 (135-149) mmol/L Potassium 3.4 L (3.6-5.1) mmol/L Chloride 105 (96-114) mmol/L Carbon Dioxide 25 (20-32) mmol/L BUN 29 (7-30) mg/dL Creatinine 0.7 (0.5-1.5) mg/dL Glucose 144 H (60-115) mg/dL Calcium 8.1 L (8.4-10.6) mg/dL AST 87 H (12-35) U/L ALT 52 H (4-50) U/L Alkaline Phosphatase 90 (40-150) U/L Total Protein 5.9 L (6.0-8.3) g/dL Albumin 2.6 L (3.3-5.0) g/dL Calcium panel 11/14/22 Range/Units 05:40 Calcium 8.1 L (8.4-10.6) mg/dL Albumin 2.6 L (3.3-5.0) g/dL Pituitary panel 11/14/22 Range/Units 05:40 Sodium 137 (135-149) mmol/L Potassium 3.4 L (3.6-5.1) mmol/L Chloride 105 (96-114) mmol/L Carbon Dioxide 25 (20-32) mmol/L BUN 29 (7-30) mg/dL Creatinine 0.7 (0.5-1.5) mg/dL Glucose 144 H (60-115) mg/dL Calcium 8.1 L (8.4-10.6) mg/dL Adrenal panel 11/14/22 Range/Units 05:40 Sodium 137 (135-149) mmol/L Potassium 3.4 L (3.6-5.1) mmol/L Chloride 105 (96-114) mmol/L Carbon Dioxide 25 (20-32) mmol/L BUN 29 (7-30) mg/dL Creatinine 0.7 (0.5-1.5) mg/dL Glucose 144 H (60-115) mg/dL Calcium 8.1 L (8.4-10.6) mg/dL Total Bilirubin 0.7 (0.1-1.5) mg/dL AST 87 H (12-35) U/L ALT 52 H (4-50) U/L Alkaline Phosphatase 90 (40-150) U/L Total Protein 5.9 L (6.0-8.3) g/dL Albumin 2.6 L (3.3-5.0) g/dL All other labs normal. Imaging Abdomen CT scan report/results: report reviewed and image reviewed CT scan - pelvis: report reviewed and image reviewed Assessment and Plan Assessment and plan (1) Perianal abscess: Status: Acute Plan Patient is an 87-year-old male found to have a large perianal abscess on CT imaging. Given the location and size would recommend incision and drainage in the operating room. Risks and benefits of operative intervention were discussed at length with the patient. Risks included but was not limited to: Bleeding, infection, risk of damage to surrounding structures, possible need for additional procedures, risk of recurrence and postoperative complications such as pneumonia, pulmonary emboli or PA. All questions and concerns were addressed with the patient agreeing to proceed.
--- NOTE | 2022-11-14 20:30 | SUR.OPER ---
Patient discussed current pain of right side of body with SANDER WOODEN PENCILS prior to departure to OR.
--- NOTE | 2022-11-14 20:35 | W.ANESCHARGE ---
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
[2022-11-14] MEDS: BUPIVACAINE LIPOSOME 133 MG/10 ML INJ INFILTRATI (20:40)
[2022-11-14] MEDS: BUPIVACAINE 0.25% 30 ML INJECTION (20:40)
--- NOTE | 2022-11-14 20:59 | P.GSOP_ITS ---
Operative Note Pre-op diagnosis: Left buttock abscess Post-op diagnosis: Same Type of Procedure: Incision and drainage left buttock abscess Indications: Patient is an 87-year-old male with clinical workup in imaging demonstrating a large left buttock abscess. Risks and benefits of operative intervention were discussed at length the patient, with him agreeing to proceed to the operating r oom for drainage. Procedure Description: They were placed in the supine position, general anesthesia was administered, and the patient was intubated by Anesthesia without difficulty. The patient was then transferred to the Operating Room table, placed in the prone jackknife position with appropriate bumps and padding. Care was taken to ensure the g enitalia and breasts were properly positioned on the hip and chest rolls, respectively. The shoulders and arms were positioned with care to protect the brachial plexus. A sterile prep and drape was in the usual fashion. The patient was brought to the Operating Room and a formal timeout for patient safety was performed in accordance with hospital protocol, thereby correctly matching this patient with their diagnosis and intended procedure. External examination, digital rectal examination, and anoscopic examination were all done and revealed erythema, induration and underlying fluctuance of the left buttock, approximately 5 cm away from the anal verge. An 11 blade was used to make a cruciate incision over this area, with good return of pus. Careful examination failed to identify a perianal fistula. The incision of the cruciate was extended laterally about 2 cm, to help assist with drainage and packing. A Metzenbaum scissors was used to sharply debride the abscess cavity of inflamm atory subcutaneous tissue down to healthy bleeding fat. There appeared to be no undrained collections. The wound was irrigated with a mixture of hydrogen peroxide and saline. Hemostasis was excellent. The cavity itself measured 12 x 10 x 5 cm in size. The wound was packed with kerlix for hemostasis. A mixture of bupivacaine and Marcaine was used to anesthetize the area. The patient tolerated procedure well. There were no apparent complications. Instrument, sponge, and needle counts were correct at the end of the case. Findings: Large left buttock abscess measuring 12 x 10 x 5 cm in size. Anesthesia: GETA Surgeon: Ruthann Espana MD Estimated blood loss (mL): 5 Condition: stable Disposition: PACU Date of procedure: 11/14/22
--- NOTE | 2022-11-14 21:14 | SUR.PHASEI ---
iv site right forearm patent without complications.
[2022-11-14] MEDS: LACTATED RINGERS 1000 ML 1,000 ML 35 ML IV (21:36)
[2022-11-15] VITALS (11 sets, daily range): BP systolic 108–132; BP diastolic 63–88; PULSE 65–83; RESP 15–18; TEMP 36.2–36.8; O2SAT 89–93
[2022-11-15] MEDS: TRAMADOL HCL 50 MG TABLET PO (02:13)
[2022-11-15] MEDS: PIPERACILLIN/TAZOBACTAM 3.375 GM in 0.9 % SODIUM CHLORIDE Mini-bag 100 ML IVPB ×4 (03:54→21:21)
[2022-11-15] MEDS: ACETAMINOPHEN 325 MG TABLET PO ×3 (04:37→21:22)
[2022-11-15] MEDS: TAMSULOSIN HCL 0.4 MG CAPSULE PO (04:38)
[2022-11-15] MEDS: LACTATED RINGERS 1000 ML 1,000 ML 125 ML IV (04:46)
--- NOTE | 2022-11-15 06:19 | PC.NURSE ---
Shift note: Pt back from surgery awake and alerted. Tolerated PO fluids and food with no c/o nausea, he denied pain upon arrival. Dressing is intact and dry. Bladder scan done at 0200, over 800CC, pt is unable to void. [employer] was contacted, RN received order for Flomax. Pt voided small amount in his incontinence pad. O2 sats down to 83-86% on RA while asleep, NC 0.5-1 L applied to maintain 89-91%. Pt turns and bed with assist of 2 and inflating mattress, he declined to get up on his feet or even to sit and dangle at the edge of the bed. Pain 3-6/10 treated per eMAR with relief and pt was able to rest.
[2022-11-15] MEDS: OMEPRAZOLE 20 MG CAPSULE DR 40 MG PO (06:48)
[2022-11-15] MEDS: LEVOTHYROXINE 75 MCG TABLET 150 MCG PO (06:48)
[2022-11-15 07:01] LABS: Hematocrit 29.2 % (37.0-53.0); Hemoglobin* 9.7 gm/dL (13.5-17.5); Mean Corpuscular HGB Conc 33 gm/dL (32-36); Mean Corpuscular Hemoglobin 32 pg (26-34); Mean Corpuscular Volume 97 fL (80-100); Platelet Count* 237 K/uL (140-440); Red Blood Count 3.02 m/uL (4.30-5.90); White Blood Count* 9.38 K/uL (4.50-11.00)
[2022-11-15 07:10] LABS: Slide Review Reflex No
[2022-11-15 07:13] LABS: Albumin* 2.5 g/dL (3.3-5.0); Chloride* 106 mmol/L (96-114); Sodium* 138 mmol/L (135-149)
[2022-11-15 07:15] LABS: Creatinine* 0.7 mg/dL (0.5-1.5); Est. Creatinine Clearance* 62.79; Estimated Glomerular Filt Rate 90 ml/min
[2022-11-15 07:16] LABS: Alkaline Phosphatase* 94 U/L (40-150); Anion Gap 4 mEq/L (7-15); Aspartate Amino Transferase* 57 U/L (12-35); Bilirubin Total* 0.5 mg/dL (0.1-1.5); Blood Urea Nitrogen* 22 mg/dL (7-30); Carbon Dioxide* 28 mmol/L (20-32); Creatine Kinase* 391 U/L (54-186); Total Protein* 5.8 g/dL (6.0-8.3)
[2022-11-15 07:17] LABS: Alanine Aminotransferase* 51 U/L (4-50); Calcium* 8.6 mg/dL (8.4-10.6); Glucose* 180 mg/dL (60-115)
[2022-11-15 07:31] LABS: C Reactive Protein* 23.8 mg/dL (0.5-1.0)
[2022-11-15] MEDS: NAPROXEN 250 MG TABLET PO ×2 (09:32→18:03)
[2022-11-15] MEDS: SODIUM CHLORIDE 0.9 % (FLUSH) 10 ML SYRINGE 5 ML IVF ×2 (09:32→21:21)
--- NOTE | 2022-11-15 11:39 | P.GSPN_ITS ---
Subjective Subjective Date Seen: 11/15/22 Interval history: Patient is feeling stronger this morning. Buttock pain is improved. No other concerns. Exam Narrative: Exam Narrative: Gen: alert and oriented, NAD : Packing removed. Crucifix incision open, packing replaced. Surrounding erythema and induration significantly improved. NO foul odor or active purulence noted. Const: Vital Signs, click to edit/add: Vital Signs - 24 hr 11/14/22 11:46 11/14/22 15:43 11/14/22 19:00 Temperature 97.5 F L 97.8 F 98.7 F Pulse Rate Pulse Rate [Left P ulse Oximeter] 85 84 80 Respiratory Rate 16 18 20 Blood Pressure Blood Pressure [Le ft Arm] 148/85 H 130/82 117/83 Pulse Oximetry 96 93 90 Oxygen Delivery Me thod Room Air Room Air Room Air Oxygen Flow Rate 11/14/22 21:00 11/14/22 21:05 11/14/22 21:10 Temperature 98.8 F Pulse Rate 79 80 77 Pulse Rate [Left P ulse Oximeter] Respiratory Rate 16 16 16 Blood Pressure 86/45 L 92/48 L 106/55 L Blood Pressure [Le ft Arm] Pulse Oximetry 90 90 90 Oxygen Delivery Me thod OxyMask OxyMask OxyMask Oxygen Flow Rate 10 10 10 11/14/22 21:15 11/14/22 21:20 11/14/22 21:25 Temperature Pulse Rate 80 75 81 Pulse Rate [Left P ulse Oximeter] Respiratory Rate 16 16 16 Blood Pressure 95/65 119/61 113/78 Blood Pressure [Le ft Arm] Pulse Oximetry 90 90 95 Oxygen Delivery Me thod OxyMask Oxygen Flow Rate 10 11/14/22 21:30 11/14/22 21:35 11/14/22 21:38 Temperature 98.2 F Pulse Rate 84 82 84 Pulse Rate [Left P ulse Oximeter] Respiratory Rate 16 16 16 Blood Pressure 125/67 114/68 127/59 L Blood Pressure [Le ft Arm] Pulse Oximetry 97 95 95 Oxygen Delivery Me thod OxyMask Room Air Room Air Oxygen Flow Rate 5 11/14/22 21:45 11/14/22 21:45 11/14/22 22:00 Temperature 98.5 F 98.5 F 98.5 F Pulse Rate 90 Pulse Rate [Left P ulse Oximeter] 90 87 Respiratory Rate 22 22 20 Blood Pressure Blood Pressure [Le ft Arm] 129/75 129/75 113/60 Pulse Oximetry 90 90 Oxygen Delivery Me thod Room Air Room Air Room Air Oxygen Flow Rate 11/14/22 22:15 11/14/22 22:30 11/14/22 23:00 Temperature 98.5 F 98.0 F Pulse Rate Pulse Rate [Left P ulse Oximeter] 73 76 Respiratory Rate 20 20 Blood Pressure Blood Pressure [Le ft Arm] 115/71 117/71 Pulse Oximetry 90 90 95 Oxygen Delivery Id thod Room Air Room Air Oxygen Flow Rate 11/14/22 23:00 11/14/22 23:00 11/14/22 23:00 Temperature 98.2 F Pulse Rate 75 Pulse Rate [Left P ulse Oximeter] 78 81 Respiratory Rate 22 18 Blood Pressure Blood Pressure [Le ft Arm] 115/64 Pulse Oximetry 91 Oxygen Delivery Id thod Room Air Oxygen Flow Rate 11/14/22 23:30 11/15/22 00:00 11/15/22 01:00 Temperature 98.2 F 98.2 F 98.2 F Pulse Rate Pulse Rate [Left P ulse Oximeter] 73 83 74 Respiratory Rate 18 18 18 Blood Pressure Blood Pressure [Le ft Arm] 128/77 125/78 127/71 Pulse Oximetry 90 90 90 [facility] Room [facility] Room Air Oxygen Flow Rate 11/15/22 02:00 11/15/22 02:59 11/15/22 03:01 Temperature 98.2 F 98.2 F Pulse Rate Pulse Rate [Left P ulse Oximeter] 83 83 Respiratory Rate 18 18 Blood Pressure Blood Pressure [Le ft Arm] 132/72 132/72 Pulse Oximetry 89 90 90 [facility] Room Air Room Air Oxygen Flow Rate 11/15/22 07:35 Temperature 97.1 F L Pulse Rate Pulse Rate [Left P ulse Oximeter] 67 Respiratory Rate 16 Blood Pressure Blood Pressure [Le ft Arm] 130/79 Pulse Oximetry 93 Oxygen Delivery Id thod Room Air Oxygen Flow Rate Progress Note: A&P Assessment and plan (1) Perianal abscess: Status: Acute Assessment and Plan: Patient is POD1 I&D perianal abscess. Dressing changed at bedside with patient tolerating well. Will continue BID dressing changes while in patient. Recommend a course of antibiotics for coverage given the surrounding cellulitis noted intra op.
[2022-11-15] MEDS: PERFLUTREN LIPID MICROSPHERES 2 ML VIAL IV (13:05)
--- NOTE | 2022-11-15 13:29 | PM.IMPN1 ---
Progress Note: A&P Assessment and plan (1) Perianal abscess: Problem details: Status post I and D by Dr. Espana 11/14/2022 Status: Acute (2) MSSA bacteremia: Problem details: Discontinue vancomycin. Continue Zosyn with a plan to transition to cefazolin. Obtain ID consult if possible as inpatient or as outpatient. Trend blood cultures. Echocardiogram. Status: Acute (3) Urinary tract infection: Problem details: Pansensitive E coli. Of uncertain clinical significance. Note probable long-term urinary retention, urethral stricture. Status: Acute (4) Urinary retention: Problem details: History of urethral stricture. Now with nearly 700 mL of residual urine. Incontinent of bowel and bladder. Place Rodriguez catheter. Status: Acute (5) Rotator cuff arthropathy of both shoulders: Problem details: Appears to have bilateral rotator cuff injury. Only the right shoulder bothers him but both shoulders have marked weakness in limitation in motion. Status: Acute (6) Disability: Problem details: Patient current requiring an EZ stand to transfer. Also unable to use his right shoulder This is a marked increase in disability over the last week. Continue in to investigate his disabilities as well as his bacteremia. Status: Acute (7) Urinary anastomotic stricture: Problem details: 2016 - transferred from [place] for acute urinary retention - stricture found on cystoscopy. Likely cause of current urinary retention. Status: Acute (8) COPD (chronic obstructive pulmonary disease): Problem details: -not hypoxic. Continue home medications Status: Acute (9) Pulmonary arterial hypertension: Problem details: -noted Status: Acute (10) Bereavement: Problem details: - 1 week prior to admission. yesterday, November 13 Status: Acute (11) Hypothyroidism: Problem details: -continue home levothyroxine dosing Status: Acute (12) Hypertension: Problem details: Restart home meds as tolerated Status: Acute (13) Fall: Problem details: -date of injury/fall. 11/11/2022. Was on the floor from approximately 5:30 p.m. until 1:00 p.m. the next day. -unclear trigger-patient remembers tripping enter losing his balance Status: Acute (14) Rhabdomyolysis: Problem details: CK coming down. No evidence of LAKISHA -evidence of volume depletion -CK greater than 8000 Due to concern about volume overload will stop IV fluids -check Mag, phosphorus -AST ALT elevated Status: Acute Plan Continue in hospital for IV antibiotics, evaluation and treatment of MSSA bacteremia, perianal abscess, E coli UTI, disability, right shoulder pain, urinary retention Time Spent With Patient Total time spent: Total time spent today is 60 minutes, 45 minutes in coordination of care discussing with patient and other providers ongoing evaluation and management of MSSA bacteremia and disability and perianal abscess Subjective Date Seen: 11/15/22 Interval history: 87-year-old male admitted to the hospital after being found down at home after a prolonged period of being on the floor. Patient tells me that he thinks that he was getting ill perhaps a week before his fall. At the time of the fall he does not think he had unconsciousness. He felt like his left knee gave out however. He did feel hot and cold but was not aware of a fever. He reports chronic shoulder problems. He has a very painful right shoulder and reports minimal movement or strength in his right arm. This is gotten worse in the last few days. Not long ago he was using his right arm for a variety of tasks. He has also had limited motion in his shoulder and pain in his shoulder. He appears to have a history of bilateral rotator cuff tears but only his right arm is so painful he can not use it anymore. He is not aware of a new injury to his right shoulder and radiographs from the emergency department did not show new fracture. Nursing staff or concern is left leg was not working well. He did acknowledge his left knee gave out when he fell couple days ago. He reports bilateral knee pain which is longstanding. He did have some abrasions on his right knee from the fall which bother him a little bit. He has had incontinence of bowel and bladder. His a history of a urinary stricture and his bladder scan today shows almost 700 mL of retained urine. Yesterday attempts were made to straight cath him but unsuccessful due to urethral stricture. He has continued to void large amounts of incontinent urine. Bladder scans continued to be around 700 mL. Five years ago he had a stricture requiring transfer to [place] for surgical intervention. His creatinine has been stable at 0.7 during this hospital stay Since admission he has been treated for rhabdomyolysis with a CK coming down. His creatinine is stable. He has subsequently grown Gram-positive cocci from his blood cultures and identification and sensitivity are pending. He has been treated with vancomycin and ceftriaxone. Yesterday CT scan showed that he had a perianal abscess. He was taken to the OR last evening by Dr. Espana. She did I&D of this. He tolerated this well and has done well since surgery. Yesterday morning I observed him to have a coughing and choking episode when he was swallowing scrambled eggs. Eventually he did cough out a bit of eggs that appeared to get into his lung. No evidence of complication from this. He does have a history about 7 years ago of being at [facility] where he underwent surgery for a cervical osteophyte which was thought to be causing swallowing problems. Exam Narrative: Exam Narrative: He is alert and appears in no distress. His mood and affect are brighter today and he is more talkative. He is observed to move with more strength today and transferred without assist of a EZ stand. Respirations are clear to auscultation. Cardiovascular: S1, S2, regular rate and rhythm. Abdomen is soft without tenderness or mass. Perianal area is notable for small incision over his left buttock which is packed with gauze. The area is with minimal erythema. He has moves all lower extremities fairly well. Const: Vital Signs, click to edit/add: Vital Signs - 24 hr 11/14/22 15:43 11/14/22 19:00 11/14/22 21:00 Temperature 97.8 F 98.7 F 98.8 F Pulse Rate 79 Pulse Rate [Left P ulse Oximeter] 84 80 Respiratory Rate 18 20 16 Blood Pressure 86/45 L Blood Pressure [Le ft Arm] 130/82 117/83 Pulse Oximetry 93 90 90 [facility] Room Air OxyMask Oxygen Flow Rate 10 11/14/22 21:05 11/14/22 21:10 11/14/22 21:15 Temperature Pulse Rate 80 77 80 Pulse Rate [Left P ulse Oximeter] Respiratory Rate 16 16 16 Blood Pressure 92/48 L 106/55 L 95/65 Blood Pressure [Le ft Arm] Pulse Oximetry 90 90 90 Oxygen Delivery Md thod OxyMask OxyMask OxyMask Oxygen Flow Rate 10 10 10 11/14/22 21:20 11/14/22 21:25 11/14/22 21:30 Temperature Pulse Rate 75 81 84 Pulse Rate [Left P ulse Oximeter] Respiratory Rate 16 16 16 Blood Pressure 119/61 113/78 125/67 Blood Pressure [Le ft Arm] Pulse Oximetry 90 95 97 Oxygen Delivery Me thod OxyMask Oxygen Flow Rate 5 11/14/22 21:35 11/14/22 21:38 11/14/22 21:45 Temperature 98.2 F 98.5 F Pulse Rate 82 84 90 Pulse Rate [Left P ulse Oximeter] Respiratory Rate 16 16 22 Blood Pressure 114/68 127/59 L Blood Pressure [Le ft Arm] 129/75 Pulse Oximetry 95 95 Oxygen Delivery Me thod Room Air Room Air Room Air Oxygen Flow Rate 11/14/22 21:45 11/14/22 22:00 11/14/22 22:15 Temperature 98.5 F 98.5 F 98.5 F Pulse Rate Pulse Rate [Left P ulse Oximeter] 90 87 73 Respiratory Rate 22 20 20 Blood Pressure Blood Pressure [Le ft Arm] 129/75 113/60 115/71 Pulse Oximetry 90 90 90 Oxygen Delivery Me thod Room Air Room Air Room Air Oxygen Flow Rate 11/14/22 22:30 11/14/22 23:00 11/14/22 23:00 Temperature 98.0 F Pulse Rate Pulse Rate [Left P ulse Oximeter] 76 78 Respiratory Rate 20 22 Blood Pressure Blood Pressure [Le ft Arm] 117/71 Pulse Oximetry 90 95 Oxygen Delivery Me thod Room Air Oxygen Flow Rate 11/14/22 23:00 11/14/22 23:00 11/14/22 23:30 Temperature 98.2 F 98.2 F Pulse Rate 75 Pulse Rate [Left P ulse Oximeter] 81 73 Respiratory Rate 18 18 Blood Pressure Blood Pressure [Le ft Arm] 115/64 128/77 Pulse Oximetry 91 90 Oxygen Delivery Me thod Room Air Room Air Oxygen Flow Rate 11/15/22 00:00 11/15/22 01:00 11/15/22 02:00 Temperature 98.2 F 98.2 F 98.2 F Pulse Rate Pulse Rate [Left P ulse Oximeter] 83 74 83 Respiratory Rate 18 18 18 Blood Pressure Blood Pressure [Le ft Arm] 125/78 127/71 132/72 Pulse Oximetry 90 90 89 Oxygen Delivery Me thod Room Air Room Air Room Air Oxygen Flow Rate 11/15/22 02:59 11/15/22 03:01 11/15/22 07:35 Temperature 98.2 F 97.1 F L Pulse Rate Pulse Rate [Left P ulse Oximeter] 83 67 Respiratory Rate 18 16 Blood Pressure Blood Pressure [Le ft Arm] 132/72 130/79 Pulse Oximetry 90 90 93 Oxygen Delivery Me thod Room Air Room Air Room Air Oxygen Flow Rate 11/15/22 11:41 Temperature 97.1 F L Pulse Rate Pulse Rate [Left P ulse Oximeter] 78 Respiratory Rate 18 Blood Pressure Blood Pressure [Le ft Arm] 108/63 Pulse Oximetry 91 Oxygen Delivery Me thod Room Air Oxygen Flow Rate Documenting provider has reviewed patient's vital signs: yes Labs Labs: Laboratory Results - last 24 hr 11/15/22 06:36 WBC 9.38 RBC 3.02 L Hgb 9.7 L Hct 29.2 L MCV 97 MCH 32 MCHC 33 Plt Count 237 ESR Sodium 138 Potassium 4.0 Chloride 106 Carbon Dioxide 28 Anion Gap 4 L BUN 22 Creatinine 0.7 Estimated Creat Clear 62.79 Estimated GFR 90 Glucose 180 H Calcium 8.6 Total Bilirubin 0.5 AST 57 H ALT 51 H Alkaline Phosphatase 94 Total Creatine Kinase 391 H C-Reactive Protein 23.8 H Total Protein 5.8 L Albumin 2.5 L
--- NOTE | 2022-11-15 18:45 | PC.NURSE ---
End of Shift... A&Ox3, Ax2 w/ gait belt and RW to commode. Jovi came to change the first dressing today. Orders are in for BID dressing change on L buttocks with wet Kerlix to pack (1 strip only not multiple pieces) with 4x4 cover and then taping all 4 edges. He had lots of visitors this shift. Bilateral bruising to his knees as well as scabbing. Bladder scanned post void- 960cc, made aware.. creatinine recheck in the AM. Echo was completed this afternoon. Has gained strength over the last couple of days and has increased ROM in his R arm, R hand swelling is still evident. Calls appropriately, passing gas. no BM today. Resting in bed, with call light within reach.
[2022-11-15] MEDS: ENOXAPARIN 40 MG/0.4 ML INJ SUBCUT (21:21)
[2022-11-16] VITALS (14 sets, daily range): BP systolic 105–145; BP diastolic 71–88; PULSE 64–78; RESP 14–20; TEMP 36.1–36.7; O2SAT 90–94
[2022-11-16] MEDS: TRAMADOL HCL 50 MG TABLET PO (00:08)
[2022-11-16] MEDS: PIPERACILLIN/TAZOBACTAM 3.375 GM in 0.9 % SODIUM CHLORIDE Mini-bag 100 ML IVPB (03:09)
[2022-11-16] MEDS: OMEPRAZOLE 20 MG CAPSULE DR 40 MG PO (06:16)
[2022-11-16] MEDS: LEVOTHYROXINE 75 MCG TABLET 150 MCG PO (06:16)
[2022-11-16 06:34] LABS: Hematocrit 28.1 % (37.0-53.0); Hemoglobin* 9.3 gm/dL (13.5-17.5); Mean Corpuscular HGB Conc 33 gm/dL (32-36); Mean Corpuscular Hemoglobin 32 pg (26-34); Mean Corpuscular Volume 97 fL (80-100); Platelet Count* 255 K/uL (140-440); Slide Review Reflex No; White Blood Count* 8.25 K/uL (4.50-11.00)
[2022-11-16 06:45] LABS: Albumin* 2.4 g/dL (3.3-5.0); Chloride* 106 mmol/L (96-114)
[2022-11-16 06:46] LABS: Potassium* 3.6 mmol/L (3.6-5.1); Sodium* 138 mmol/L (135-149)
[2022-11-16 06:48] LABS: Alkaline Phosphatase* 87 U/L (40-150); Anion Gap 4 mEq/L (7-15); Aspartate Amino Transferase* 49 U/L (12-35); Bilirubin Total* 0.5 mg/dL (0.1-1.5); Blood Urea Nitrogen* 23 mg/dL (7-30); Carbon Dioxide* 28 mmol/L (20-32); Creatine Kinase* 297 U/L (54-186); Creatinine* 0.7 mg/dL (0.5-1.5); Est. Creatinine Clearance* 62.79; Estimated Glomerular Filt Rate 90 ml/min; Total Protein* 5.7 g/dL (6.0-8.3)
[2022-11-16 06:49] LABS: Alanine Aminotransferase* 48 U/L (4-50); Calcium* 8.1 mg/dL (8.4-10.6); Glucose* 132 mg/dL (60-115)
[2022-11-16 07:03] LABS: C Reactive Protein* 16.1 mg/dL (0.5-1.0)
[2022-11-16] MEDS: TAMSULOSIN HCL 0.4 MG CAPSULE PO (09:27)
[2022-11-16] MEDS: NAPROXEN 250 MG TABLET PO ×2 (09:27→17:52)
[2022-11-16] MEDS: SODIUM CHLORIDE 0.9 % (FLUSH) 10 ML SYRINGE 5 ML IVF ×2 (09:28→20:48)
[2022-11-16] MEDS: CEFAZOLIN 2 GM in 0.9 % SODIUM CHLORIDE Mini-bag 100 ML IVPB ×2 (09:42→17:11)
--- NOTE | 2022-11-16 12:10 | PM.GSPN ---
Subjective Subjective Date Seen: 11/16/22 Interval history: Patient is doing well this morning. Did have a dressing change last night. Had some buttock pain overnight, but better this morning with getting up. He did get a ROHO for his chair which has been helpful. No other concerns. Exam Narrative: Exam Narrative: : Left buttock cruciate incision, serosanguinous drainage on dressing with saturation to outer dressing. Surrounding erythema improved, no significant induration. Const: Vital Signs, click to edit/add: Vital Signs - 24 hr 11/15/22 15:30 11/15/22 16:05 11/15/22 19:00 Temperature 97.5 F L 97.3 F L Pulse Rate 65 Pulse Rate [Left P ulse Oximeter] 68 70 Respiratory Rate 16 15 Blood Pressure [Le ft Arm] 115/88 128/84 Pulse Oximetry 92 92 Oxygen Delivery Me thod Room Air Room Air 11/15/22 23:00 11/15/22 23:00 11/16/22 00:00 Temperature 97.1 F L Pulse Rate 75 Pulse Rate [Left P ulse Oximeter] 71 Respiratory Rate 18 Blood Pressure [Le ft Arm] 124/75 Pulse Oximetry 92 92 Oxygen Delivery Me thod Room Air 11/16/22 03:00 11/16/22 05:00 11/16/22 08:20 Temperature 98.1 F Pulse Rate Pulse Rate [Left P ulse Oximeter] 73 Respiratory Rate 20 18 14 Blood Pressure [Le ft Arm] 130/76 Pulse Oximetry 91 91 Oxygen Delivery Ca thod Room Air Room Air 11/16/22 08:20 11/16/22 11:00 Temperature 97.6 F 97.0 F L Pulse Rate Pulse Rate [Left P ulse Oximeter] 65 64 Respiratory Rate 14 18 Blood Pressure [Le ft Arm] 138/82 Pulse Oximetry 90 91 Oxygen Delivery Me thod Room Air Room Air Progress Note: A&P Assessment and plan (1) Perianal abscess: Problem details: Status post I and D by Dr. Espana 11/14/2022 Status: Acute Assessment and Plan: Patient is s/p I&D perianal abscess. No new surgical recommendations. Incision is healing well. Wound continue with BID wet to dry dressing changes.
--- NOTE | 2022-11-16 13:27 | PM.IMPN1 ---
Progress Note: A&P Assessment and plan (1) Perianal abscess: Problem details: Status post I and D by Dr. Espana 11/14/2022. Abscess growing MSSA. Blood cultures show MSSA. Prolonged treatment with cefazolin. Echo pending. Status: Acute (2) MSSA bacteremia: Problem details: Discontinue vancomycin. Continue Zosyn with a plan to transition to cefazolin. Obtain ID consult if possible as inpatient or as outpatient. Trend blood cultures. Echocardiogram. Status: Acute (3) Disability: Problem details: Patient current requiring an EZ stand to transfer. Also unable to use his right shoulder This is a marked increase in disability over the last week. Continue in to investigate his disabilities as well as his bacteremia. Status: Acute (4) Rotator cuff arthropathy of both shoulders: Problem details: Appears to have bilateral rotator cuff injury. Only the right shoulder bothers him but both shoulders have marked weakness in limitation in motion. Status: Acute (5) Urinary retention: Problem details: History of urethral stricture. Now with nearly 700 mL of residual urine. Incontinent of bowel and bladder. Place Rodriguez catheter. Status: Acute (6) Urinary tract infection: Problem details: Pansensitive E coli. Of uncertain clinical significance. Note probable long-term urinary retention, urethral stricture. Status: Acute (7) Urinary anastomotic stricture: Problem details: 2016 - transferred from [place] for acute urinary retention - stricture found on cystoscopy. Likely cause of current urinary retention. Status: Acute (8) COPD (chronic obstructive pulmonary disease): Problem details: -not hypoxic. Continue home medications Status: Acute (9) Bereavement: Problem details: - 1 week prior to admission. yesterday, November 13 Status: Acute (10) Rhabdomyolysis: Problem details: CK coming down. No evidence of LAKISHA -evidence of volume depletion -CK greater than 8000 Due to concern about volume overload will stop IV fluids -check Mag, phosphorus -AST ALT elevated Status: Acute Plan Continue in hospital for IV antibiotics and wound care. Anticipate discharge when able to arrange outpatient antibiotic plan and disposition, likely needing TCU. Time Spent With Patient Total time spent: Total time spent today is 50 minutes, 35 minutes in coordination care discussing with patient and other providers management of bacteremia, perianal abscess and disability Subjective Date Seen: 11/16/22 Interval history: 87-year-old male admitted to the hospital after being found down at home after a prolonged period of being on the floor. Patient tells me that he thinks that he was getting ill perhaps a week before his fall. At the time of the fall he does not think he had unconsciousness. He felt like his left knee gave out however. He did feel hot and cold but was not aware of a fever. He reports chronic shoulder problems. He has a very painful right shoulder and reports minimal movement or strength in his right arm. This is gotten worse in the last few days. Not long ago he was using his right arm for a variety of tasks. He has also had limited motion in his shoulder and pain in his shoulder. He appears to have a history of bilateral rotator cuff tears but only his right arm is so painful he can not use it anymore. He is not aware of a new injury to his right shoulder and radiographs from the emergency department did not show new fracture. Nursing staff or concern is left leg was not working well. He did acknowledge his left knee gave out when he fell couple days ago. He reports bilateral knee pain which is longstanding. He did have some abrasions on his right knee from the fall which bother him a little bit. He has had incontinence of bowel and bladder. His a history of a urinary stricture and his bladder scan today shows almost 700 mL of retained urine. Yesterday attempts were made to straight cath him but unsuccessful due to urethral stricture. He has continued to void large amounts of incontinent urine. Bladder scans continued to be around 700 mL. Five years ago he had a stricture requiring transfer to [place] for surgical intervention. His creatinine has been stable at 0.7 during this hospital stay Since admission he has been treated for rhabdomyolysis with a CK coming down. His creatinine is stable. He has subsequently grown Gram-positive cocci from his blood cultures and identification and sensitivity are pending. He has been treated with vancomycin and ceftriaxone. Yesterday CT scan showed that he had a perianal abscess. He was taken to the OR last evening by Dr. Espana. She did I&D of this. He tolerated this well and has done well since surgery. Patient and staff report that he is feeling stronger. They note his mood and affect are brighter. Today is complaining of some pain in his left buttock cheek where he has packing from his wound. He has no other concerns today. Exam Narrative: Exam Narrative: He is alert and appears in no distress. Pleasant and talkative. Respirations are clear to auscultation. Cardiovascular: S1, S2, regular rate and rhythm. Abdomen is soft without tenderness or mass. Extremities with no significant edema. Const: Vital Signs, click to edit/add: Vital Signs - 24 hr 11/15/22 15:30 11/15/22 16:05 11/15/22 19:00 Temperature 97.5 F L 97.3 F L Pulse Rate 65 Pulse Rate [Left P ulse Oximeter] 68 70 Respiratory Rate 16 15 Blood Pressure [Le ft Arm] 115/88 128/84 Pulse Oximetry 92 92 Oxygen Delivery Me thod Room Air Room Air 11/15/22 23:00 11/15/22 23:00 11/16/22 00:00 Temperature 97.1 F L Pulse Rate 75 Pulse Rate [Left P ulse Oximeter] 71 Respiratory Rate 18 Blood Pressure [Le ft Arm] 124/75 Pulse Oximetry 92 92 Oxygen Delivery Me thod Room Air 11/16/22 03:00 11/16/22 05:00 11/16/22 08:00 Temperature 98.1 F Pulse Rate 65 Pulse Rate [Left P ulse Oximeter] 73 Respiratory Rate 20 18 Blood Pressure [Le ft Arm] 130/76 Pulse Oximetry 91 91 Oxygen Delivery Tx thod Room Air Room Air 11/16/22 08:20 11/16/22 08:20 11/16/22 11:00 Temperature 97.6 F 97.0 F L Pulse Rate Pulse Rate [Left P ulse Oximeter] 65 64 Respiratory Rate 14 14 18 Blood Pressure [Le ft Arm] 138/82 Pulse Oximetry 90 91 Oxygen Delivery Me thod Room Air Room Air Documenting provider has reviewed patient's vital signs: yes Labs Labs: Laboratory Results - last 24 hr 11/16/22 06:12 WBC 8.25 RBC 2.90 L Hgb 9.3 L Hct 28.1 L MCV 97 MCH 32 MCHC 33 Plt Count 255 Sodium 138 Potassium 3.6 Chloride 106 Carbon Dioxide 28 Anion Gap 4 L BUN 23 Creatinine 0.7 Estimated Creat Clear 62.79 Estimated GFR 90 Glucose 132 H Calcium 8.1 L Total Bilirubin 0.5 AST 49 H ALT 48 Alkaline Phosphatase 87 Total Creatine Kinase 297 H C-Reactive Protein 16.1 H Total Protein 5.7 L Albumin 2.4 L
[2022-11-16] MEDS: ACETAMINOPHEN 325 MG TABLET PO ×2 (14:04→22:14)
--- NOTE | 2022-11-16 16:03 | PC.NURSE ---
Pt up with assist of 2 within the room. Incontinent of urine in brief, not aware of wet brief. Voided 50cc after bladder scan of 999, pt denied urge to void or any discomfort while bladder scanning.
[2022-11-16] MEDS: ENOXAPARIN 40 MG/0.4 ML INJ SUBCUT (20:47)
--- NOTE | 2022-11-16 22:41 | PC.NURSE ---
End of shift: Pt A&O w/ intermittent confusion. Able to reorientate. VSS w/ sats >90% on RA. A1-2 w/ walker and gait belt. Pt complains of right shoulder and leg pain. PRN Tylenol given w/ stated relief. Dressing change on L buttock done per order and pt tolerated well. 1/2 roll of Kerlix used wet to dry and covered w/ Mepilex. Mepilex on coccyx c/d/i. Turn and repo while in bed. Pt has been incontinent of urine. Bladder scanned this evening for 999+. updated on bladder scan and intermittent confusion. Pt is using call light appropriately. Bed alarm in place.
[2022-11-17] VITALS (11 sets, daily range): BP systolic 110–144; BP diastolic 65–95; PULSE 72–91; RESP 16–20; TEMP 36.3–36.7; O2SAT 90–94
[2022-11-17] MEDS: CEFAZOLIN 2 GM in 0.9 % SODIUM CHLORIDE Mini-bag 100 ML IVPB ×3 (00:52→17:36)
[2022-11-17] MEDS: ACETAMINOPHEN 325 MG TABLET PO ×2 (05:40→13:24)
[2022-11-17] MEDS: OMEPRAZOLE 20 MG CAPSULE DR 40 MG PO (05:44)
[2022-11-17] MEDS: LEVOTHYROXINE 75 MCG TABLET 150 MCG PO (05:44)
[2022-11-17] MEDS: NAPROXEN 250 MG TABLET PO ×2 (09:10→17:36)
[2022-11-17] MEDS: TAMSULOSIN HCL 0.4 MG CAPSULE PO (09:11)
[2022-11-17] MEDS: SODIUM CHLORIDE 0.9 % (FLUSH) 10 ML SYRINGE 5 ML IVF ×3 (09:11→20:37)
--- NOTE | 2022-11-17 10:42 | P.GSPN_ITS ---
Subjective Subjective Date Seen: 11/17/22 Interval history: No new complaints. Exam Narrative: Exam Narrative: Gen: alert and oriented, NAD : Dressings taken down. Saturated dressings, some evidence of purulence. Cavity palpated and no undrained fluid pockets, moderate amount of fibrinous exudate within abscess cavity. No significant surrounding induration or erythe ma. Const: Vital Signs, click to edit/add: Vital Signs - 24 hr 11/16/22 11:00 11/16/22 15:40 11/16/22 16:30 Temperature 97.0 F L 97.6 F Pulse Rate 68 Pulse Rate [Left P ulse Oximeter] 64 78 Respiratory Rate 18 18 Blood Pressure [Le ft Arm] 138/82 139/71 Pulse Oximetry 91 92 Oxygen Delivery Me thod Room Air Room Air Oxygen Flow Rate 11/16/22 19:03 11/16/22 22:37 11/16/22 23:22 Temperature 98.0 F 98.0 F Pulse Rate 76 Pulse Rate [Left P ulse Oximeter] 70 Respiratory Rate 20 Blood Pressure [Le ft Arm] 105/78 Pulse Oximetry 91 Oxygen Delivery Me thod Room Air Oxygen Flow Rate 11/16/22 23:23 11/16/22 23:24 11/16/22 23:25 Temperature 98 F Pulse Rate Pulse Rate [Left P ulse Oximeter] 74 74 Respiratory Rate 20 16 Blood Pressure [Le ft Arm] 145/88 H Pulse Oximetry 94 94 Oxygen Delivery Me thod Room Air Oxygen Flow Rate 11/17/22 01:58 11/17/22 05:09 11/17/22 05:40 Temperature 98 F 98 F Pulse Rate Pulse Rate [Left P ulse Oximeter] 84 Respiratory Rate 16 18 Blood Pressure [Le ft Arm] 133/70 Pulse Oximetry 94 94 Oxygen Delivery Me thod Room Air Room Air Oxygen Flow Rate 0 11/17/22 07:52 11/17/22 08:04 Temperature 97.5 F L Pulse Rate 78 Pulse Rate [Left P ulse Oximeter] 91 Respiratory Rate 18 Blood Pressure [Le ft Arm] 144/92 H Pulse Oximetry 93 Oxygen Delivery Me thod Room Air Oxygen Flow Rate Labs/Imaging Labs Labs: Micro: MSSA growth from buttock and in blood cultures. Progress Note: A&P Assessment and plan (1) Perianal abscess: Problem details: Status post I and D by Dr. Espana 11/14/2022. Abscess growing MSSA. Blood cultures show MSSA. Prolonged treatment with cefazolin. Echo pending. Status: Acute Assessment and Plan: Patient is s/p I&D perianal abscess. Some purulence noted on dressings and debris within abscess cavity. Nursing instructed to pack the wound with more gauze to help assist with debridement. Recommend TID dressing changes today. Patient should be having a shower at least once daily with irrigation of the wound.
--- NOTE | 2022-11-17 11:46 | REH.OT ---
Pt refused OT treatment in the AM, attempted x2 later in the AM but other disciplines were attending to pt. Will attempt again tomorrow.
--- NOTE | 2022-11-17 11:52 | PC.SOCIAL ---
Addendum entered by Josie Powers HYDROGRAPHY TEACHER 11/17/22 13:03: Received call back from [facility] stating they do not have any bed availability. Received call back from [facility] requesting information be faxed. Faxed requested information to [facility]. Awaiting calls back from [place]. shut off worker to follow up as needed. Original Note: Discharge planning: Received messages from caregiver, Deisy Lamar [phone] and sister, Maryellen Calderón [phone] regarding discharge planning. Called back and left a message for Maryellen and spoke with Deisy. Deisy states pt would like to be placed in a [facility] facility in [facility] in the listed order: 1. [place]; 2. [place]; 3. [place] and 4. [place]. Called facilities in [place] and there is no availability. Called [facility] in [place], [facility] in [place] and [facility] and left messages requesting a calls back regarding availability. shut off worker to follow up as needed.
--- NOTE | 2022-11-17 14:40 | P.IMPN_ITS ---
Progress Note: A&P Assessment and plan (1) MSSA bacteremia: Problem details: Cefazolin 2 g IV q.8 hours for 4 weeks after negative blood cultures, possibly starting tomorrow. TTE shows no vegetations Status: Acute (2) Perianal abscess: Problem details: Status post I and D by Dr. Espana 11/14/2022. Abscess growing MSSA. Blood cultures show MSSA. Prolonged treatment with cefazolin. Status: Acute (3) Disability: Problem details: Patient currently moving much better. He is stronger and having less pain and weakness. Likely to need rehab stay for significant improvement prior to going to his apartment. Status: Acute (4) Rotator cuff arthropathy of both shoulders: Problem details: Appears to have bilateral rotator cuff injury. Only the right shoulder bothers him but both shoulders have marked weakness in limitation in motion. Status: Acute (5) Urinary retention: Problem details: History of urethral stricture. Now with 700-1000 ml of residual urine. Incontinent of bowel and bladder. Place Rodriguez catheter. Outpatient Urology follow-up Status: Acute (6) Urinary tract infection: Problem details: Pansensitive E coli. Of uncertain clinical significance. Note probable long- term urinary retention, urethral stricture. Status: Acute (7) Urinary anastomotic stricture: Problem details: 2016 - transferred from [place] for acute urinary retention - stricture found on cystoscopy. Likely cause of current urinary retention. Status: Acute (8) Pulmonary arterial hypertension: Problem details: -noted Status: Acute (9) COPD (chronic obstructive pulmonary disease): Problem details: -not hypoxic. Continue home medications Status: Acute (10) Fall: Problem details: -date of injury/fall. 11/11/2022. Status: Acute (11) Rhabdomyolysis: Problem details: CK coming down. No evidence of LAKISHA -evidence of volume depletion -CK greater than 8000 Due to concern about volume overload will stop IV fluids -check Mag, phosphorus -AST ALT elevated Status: Acute (12) Hypertension: Problem details: Restart home meds as tolerated Status: Acute (13) Bereavement: Problem details: - 1 week prior to admission. yesterday, November 13 Status: Acute (14) Hypothyroidism: Problem details: -continue home levothyroxine dosing Status: Acute Plan Continue inpatient treatment with IV antibiotics and wound care and therapy. Place PICC line after 72 hours of negative blood culture for 4 more weeks of IV antibiotics. Outpatient management of urethral stricture and urinary retention. Time Spent With Patient Total time spent: Total time spent today is 45 minutes, 30 minutes in coordination of care discussing with patient other providers ongoing evaluation management of bacteremia, perianal ulcer and weakness Subjective Date Seen: 11/17/22 Interval history: 87-year-old male admitted to the hospital after being found down at home after a prolonged period of being on the floor. Patient tells me that he thinks that he was getting ill perhaps a week before his fall. At the time of the fall he does not think he had unconsciousness. He felt like his left knee gave out however. He did feel hot and cold but was not aware of a fever. He reports chronic shoulder problems. He has a very painful right shoulder and reports minimal movement or strength in his right arm. This is gotten worse in the last few days. Not long ago he was using his right arm for a variety of tasks. He has also had limited motion in his shoulder and pain in his shoulder. He appears to have a history of bilateral rotator cuff tears but only his right arm is so painful he can not use it anymore. He is not aware of a new injury to his right shoulder and radiographs from the emergency department did not show new fracture. Nursing staff or concern is left leg was not working well. He did acknowledge his left knee gave out when he fell couple days ago. He reports bilateral knee pain which is longstanding. He did have some abrasions on his right knee from the fall which bother him a little bit. He has had incontinence of bowel and bladder. His a history of a urinary stricture and his bladder scan today shows almost 1000 mL of retained urine. Attempts were made to straight cath him but unsuccessful due to urethral stricture. He has continued to void large amounts of incontinent urine. Bladder scans continued to be around 700 to 1000 mL. Five years ago he had a stricture requiring transfer to [place] for surgical intervention. His creatinine has been stable at 0.7 during this hospital stay Since admission he has been treated for rhabdomyolysis with a CK coming down. His creatinine is stable. He has subsequently grown Gram-positive cocci from his blood cultures and identification and sensitivity are pending. He has been treated with vancomycin and ceftriaxone. CT scan showed that he had a perianal abscess. He was taken to the OR by Dr. Espana. She did I&D of this. He tolerated this well and has done well since surgery. Blood and abscess cultures both growing MSSA. Urine culture growing pansensitive E coli. Currently on cephalexin 2 g IV q.8 hours to treat both. I spoke with Infectious Disease who recommended 4 weeks of IV antibiotics after negative cultures. Patient and staff report that he is feeling stronger. They note his mood and affect are brighter. Today is complaining of some pain in his left buttock cheek where he has packing from his wound. He has no other concerns today. Exam Narrative: Exam Narrative: He is alert no distress. Mood and affect are bright. Respirations are clear to auscultation. Cardiovascular: S1, S2, regular rate and rhythm. Abdomen is soft without tenderness or mass. He reports some periscapular pain on the left but he has fairly good motion with minimal pain in his left shoulder no tenderness to palpation. The area of pain he reports is really at the lower end of the scapula over his back muscles. No bruising or trauma there. Motion in his right shoulder is much improved though still very limited. Edema in his right hand is much improved. Const: Vital Signs, click to edit/add: Vital Signs - 24 hr 11/16/22 15:40 11/16/22 16:30 11/16/22 19:03 Temperature 97.6 F 98.0 F Pulse Rate 68 Pulse Rate [Left P ulse Oximeter] 78 70 Respiratory Rate 18 20 Blood Pressure [Le ft Arm] 139/71 105/78 Pulse Oximetry 92 91 Oxygen Delivery Me thod Room Air Room Air Oxygen Flow Rate 11/16/22 22:37 11/16/22 23:22 11/16/22 23:23 Temperature 98.0 F Pulse Rate 76 Pulse Rate [Left P ulse Oximeter] Respiratory Rate Blood Pressure [Le ft Arm] Pulse Oximetry 94 Oxygen Delivery Nj thod Oxygen Flow Rate 11/16/22 23:24 11/16/22 23:25 11/17/22 01:58 Temperature 98 F 98 F Pulse Rate Pulse Rate [Left P ulse Oximeter] 74 74 84 Respiratory Rate 20 16 16 Blood Pressure [Le ft Arm] 145/88 H 133/70 Pulse Oximetry 94 94 [facility] Room Air Oxygen Flow Rate 0 11/17/22 05:09 11/17/22 05:40 11/17/22 07:52 Temperature 98 F 97.5 F L Pulse Rate Pulse Rate [Left P ulse Oximeter] 91 Respiratory Rate 18 18 Blood Pressure [Le ft Arm] 144/92 H Pulse Oximetry 94 93 Oxygen Delivery Me thod Room Air Room Air Oxygen Flow Rate 11/17/22 08:04 11/17/22 11:23 Temperature 97.8 F Pulse Rate 78 Pulse Rate [Left P ulse Oximeter] 84 Respiratory Rate 18 Blood Pressure [Le ft Arm] 126/95 H Pulse Oximetry 90 Oxygen Delivery Me thod Room Air Oxygen Flow Rate Documenting provider has reviewed patient's vital signs: yes
--- NOTE | 2022-11-17 15:03 | PC.NURSE ---
End of Shift... A&Ox3, but forgetful. Ax2 w/ walker and gait belt up to the chair for both meals this shift. Ate about 75% of each. 2 incontinent voids this shift. Barrier cream PRN. L buttock wound w/ dressing change orders TID 1 was completed. Q2 reposition and check and change. Reported 5/10 pain in his L buttock, PRN tylenol was given crushed because patient had a lot of flem in his throat. Up in the chair watching TV, call light within reach.
--- NOTE | 2022-11-17 15:07 | NUTR.NU ---
RDN with nutrition follow-up. Patient is on a regular diet. RDN notes no dentition with dentures. Patient denied difficulties with chewing. Patient reports a good appetite and notes eating well. Per boiler erector, patient has been eating 75-100% of most meals recorded since admission. Patient ate 75% of breakfast and lunch today. Patient notes doing the cooking and grocery shopping prior to admission. Patient notes eating 3 meals a day with snacks PRN prior to admission. Patient is unsure of UBW. No weight history available for review at this time. Weight has been stable since admission with current weight at 228lbs 11/17/22 and admission weight of 227lbs on 11/12/22. Patient declined all nutritional supplements. Patient notified of snacks available and how to access them. RDN will continue to follow PRN.
[2022-11-17] MEDS: ENOXAPARIN 40 MG/0.4 ML INJ SUBCUT (20:36)
--- NOTE | 2022-11-17 21:58 | PC.NURSE ---
End of Shift: Patient pleasant and cooperative. Afebrile. Denies pain. Up to chair with 2 assist, walker and gait belt. Tolerating regular diet with no nausea. Dressing changed per MD order. Frequent turn and reposition in chair and bed. Incontinent throughout shift.
[2022-11-18] VITALS (11 sets, daily range): BP systolic 111–139; BP diastolic 76–96; PULSE 65–92; RESP 16–20; TEMP 36.1–36.5; O2SAT 92–94
[2022-11-18] MEDS: TRAMADOL HCL 50 MG TABLET PO (00:35)
[2022-11-18] MEDS: CEFAZOLIN 2 GM in 0.9 % SODIUM CHLORIDE Mini-bag 100 ML IVPB ×3 (01:01→17:50)
[2022-11-18] MEDS: 0.9 % SODIUM CHLORIDE 250 ml IV (01:01)
[2022-11-18] MEDS: ACETAMINOPHEN 325 MG TABLET PO ×3 (04:14→21:56)
[2022-11-18] MEDS: OMEPRAZOLE 20 MG CAPSULE DR 40 MG PO (05:31)
[2022-11-18] MEDS: LEVOTHYROXINE 75 MCG TABLET 150 MCG PO (05:31)
--- NOTE | 2022-11-18 06:45 | PC.NURSE ---
End of shift: A&O. VSS w/ sats >90% on RA. Mepilex c/d/i. Dressing on left buttock soiled and changed per order. Pt complains of back pain, see eMAR for intervention. Pt sat in the chair for most of the night. Frequent brief changes and repo. A2 w/ walker and gait belt. Uses call light appropriately.
[2022-11-18 06:53] LABS: Chloride* 104 mmol/L (96-114)
[2022-11-18 06:54] LABS: Potassium* 3.7 mmol/L (3.6-5.1); Sodium* 137 mmol/L (135-149)
[2022-11-18 06:57] LABS: Anion Gap 7 mEq/L (7-15); Calcium* 8.4 mg/dL (8.4-10.6); Carbon Dioxide* 26 mmol/L (20-32); Creatinine* 0.9 mg/dL (0.5-1.5); Est. Creatinine Clearance* 62.79; Estimated Glomerular Filt Rate 84 ml/min; Glucose* 115 mg/dL (60-115)
[2022-11-18 07:15] LABS: Blood Urea Nitrogen* 22 mg/dL (7-30)
[2022-11-18] MEDS: NAPROXEN 250 MG TABLET PO (08:04)
[2022-11-18] MEDS: TAMSULOSIN HCL 0.4 MG CAPSULE PO (09:18)
[2022-11-18] MEDS: SODIUM CHLORIDE 0.9 % (FLUSH) 10 ML SYRINGE 5 ML IVF ×2 (09:18→20:52)
[2022-11-18] MEDS: SENNOSIDES/DOCUSATE TABLET 1 TAB PO (11:00)
--- NOTE | 2022-11-18 12:13 | PC.SOCIAL ---
Discharge planning: Spoke with Deisy Newton [phone] who called for an update on discharge plans. Deisy is aware there are no beds available at custodial facilities in [place] or [place] and that messages have been left at [facility] and that [facility] is assessing pt. Deisy states she has connections at [facility] and will contact them directly. Deisy requested social work call pt's sister, Maryellen, again as she states she did not receive the message left yesterday. Deisy confirmed group social worker had the correct phone number and provided additional home phone for Maryellen of [phone]. Called Maryellen to discuss discharge plans. Maryellen states if there are no beds in [facility], her preference in this order is the facility in 1. [facility] and 3. [facility]. seafood process worker faxed information to [facility] for review. seafood process worker to follow up as needed.
[2022-11-18] MEDS: FUROSEMIDE 10 MG/ML inj 20 MG IVP (13:43)
[2022-11-18] MEDS: POTASSIUM BICARB 25 MEQ EFFERVESCENT TAB PO (13:45)
--- NOTE | 2022-11-18 13:52 | CRLHL7_ITS ---
For Patients: As a result of the Cures Act, medical imaging exams and procedure reports are released immediately into your electronic medical record. You may view this report before your referring provider. If you have questions, please contact your health care provider. INDICATION: Hypoxia. TECHNIQUE: Chest 1 views. COMPARISON: November 12, 2022. FINDINGS: Cardiovascular and mediastinum: Stable heart size vasculature Lungs and pleural spaces: Pulmonary emphysema. Bibasilar atelectasis. No sign of infiltrate or mass. No sign of pleural effusion. No pneumothorax. Bones and soft tissues: Incomplete visualization of stable sclerotic right humeral lesion. IMPRESSION: Pulmonary emphysema. No acute or significant findings. No significant interval change when compared to prior study. Dictated by Juan Francisco Torres MD @ 11/18/2022 3:25:59 PM (Electronically Signed)
--- NOTE | 2022-11-18 14:37 | PM.IMPN1 ---
Progress Note: A&P Assessment and plan (1) MSSA bacteremia: Problem details: Cefazolin 2 g IV q.8 hours for 4 weeks after negative blood cultures for 72 hours, possibly starting in 2 days. TTE shows no vegetations. PICC line after 72 hours of negative culture Status: Acute (2) Perianal abscess: Problem details: Status post I and D by Dr. Espana 11/14/2022. Abscess growing MSSA. Blood cultures show MSSA. Prolonged treatment with cefazolin. Status: Acute (3) Disability: Problem details: Patient currently moving much better. He is stronger and having less pain and weakness. Likely to need rehab stay for significant improvement prior to going to his apartment. Status: Acute (4) Rotator cuff arthropathy of both shoulders: Problem details: Appears to have bilateral rotator cuff injury. Only the right shoulder bothers him but both shoulders have marked weakness in limitation in motion. Right shoulder is better. He has begun to use his right hand a little bit to eat Status: Acute (5) Urinary retention: Problem details: History of urethral stricture. Now with 700-1000 ml of residual urine. Incontinent of bowel and bladder. Place Rodriguez catheter. Outpatient Urology follow-up Status: Acute (6) Urinary tract infection: Problem details: Pansensitive E coli. Of uncertain clinical significance. Note probable long-term urinary retention, urethral stricture. Status: Acute (7) Urinary anastomotic stricture: Problem details: 2016 - transferred from [place] for acute urinary retention - stricture found on cystoscopy. Likely cause of current urinary retention. Status: Acute (8) Pulmonary arterial hypertension: Problem details: -noted Status: Acute (9) COPD (chronic obstructive pulmonary disease): Problem details: -not hypoxic. Continue home medications Status: Acute (10) Fall: Problem details: -date of injury/fall. 11/11/2022. Status: Acute (11) Rhabdomyolysis: Problem details: CK coming down. No evidence of LAKISHA -evidence of volume depletion -CK greater than 8000 Due to concern about volume overload will stop IV fluids -check Mag, phosphorus -AST ALT elevated Status: Acute (12) Hypertension: Problem details: Restart home meds as tolerated. Volume appears up today. Will restart diuretic, Dyazide. Stop Naprosyn. Status: Acute (13) Bereavement: Problem details: - 1 week prior to admission. yesterday, November 13. He had an offered to view his 's body today but he declined Status: Acute (14) Hypothyroidism: Problem details: -continue home levothyroxine dosing Status: Acute (15) Anemia: Problem details: Progressive drop in hemoglobin. No obvious bleeding. Check stool for occult blood. Some of this is delusional. Resume diuretics. Stop Naprosyn Status: Acute (16) Constipation: Problem details: Increase laxative Status: Acute Plan Continue in hospital pending negative blood cultures and safe plan for discharge with outpatient IV antibiotics for 4 more weeks Time Spent With Patient Total time spent: Total time spent today is 50 minutes, 35 minutes in coordination of care and discussing with patient and other providers management of MSSA bacteremia, perianal abscess, disability Subjective Date Seen: 11/18/22 Interval history: 87-year-old male admitted to the hospital after being found down at home after a prolonged period of being on the floor. Patient tells me that he thinks that he was getting ill perhaps a week before his fall. At the time of the fall he does not think he had unconsciousness. He felt like his left knee gave out however. He did feel hot and cold but was not aware of a fever. He reports chronic shoulder problems. He has a very painful right shoulder and reports minimal movement or strength in his right arm. This is gotten worse in the last few days. Not long ago he was using his right arm for a variety of tasks. He has also had limited motion in his shoulder and pain in his shoulder. He appears to have a history of bilateral rotator cuff tears but only his right arm is so painful he can not use it anymore. He is not aware of a new injury to his right shoulder and radiographs from the emergency department did not show new fracture. Nursing staff or concern is left leg was not working well. He did acknowledge his left knee gave out when he fell couple days ago. He reports bilateral knee pain which is longstanding. He did have some abrasions on his right knee from the fall which bother him a little bit. He has had incontinence of bowel and bladder. His a history of a urinary stricture and his bladder scan today shows almost 1000 mL of retained urine. Attempts were made to straight cath him but unsuccessful due to urethral stricture. He has continued to void large amounts of incontinent urine. Bladder scans continued to be around 700 to 1000 mL. Five years ago he had a stricture requiring transfer to [place] for surgical intervention. His creatinine has been stable at 0.7 during this hospital stay Since admission he has been treated for rhabdomyolysis with a CK coming down. His creatinine is stable. He has subsequently grown Gram-positive cocci from his blood cultures and identification and sensitivity are pending. He has been treated with vancomycin and ceftriaxone. CT scan showed that he had a perianal abscess. He was taken to the OR by Dr. Espana. She did I&D of this. He tolerated this well and has done well since surgery. Blood and abscess cultures both growing MSSA. Urine culture growing pansensitive E coli. Currently on cephalexin 2 g IV q.8 hours to treat both. I spoke with Infectious Disease who recommended 4 weeks of IV antibiotics after negative cultures. Patient and staff report that he is feeling stronger. They note his mood and affect are brighter. Today is complaining of some pain in his left buttock cheek where he has packing from his wound. He has no other concerns today. Exam Narrative: Exam Narrative: He is alert and appears in no distress. He is eating with his dentures in at this time but they are loose. Respirations are clear to auscultation without wheezing rales or rhonchi. Somewhat diminished breath sounds. Cardiovascular: S1, S2, regular rate and rhythm. Abdomen is soft without tenderness or mass. Extremities with 1+ edema on the right and 2+ edema on the left legs. No tenderness or erythema. Const: Vital Signs, click to edit/add: Vital Signs - 24 hr 11/17/22 15:00 11/17/22 15:00 11/17/22 16:00 Temperature 97.4 F L Pulse Rate 72 Pulse Rate [Apical ] 74 Pulse Rate [Left P ulse Oximeter] Respiratory Rate 20 20 Blood Pressure [Le ft Arm] 110/65 Pulse Oximetry 93 Oxygen Delivery Me thod Room Air Oxygen Flow Rate 11/17/22 19:00 11/17/22 23:00 11/17/22 23:46 Temperature 97.7 F 98.1 F Pulse Rate Pulse Rate [Apical ] 86 Pulse Rate [Left P ulse Oximeter] 72 Respiratory Rate 18 20 Blood Pressure [Le ft Arm] 114/73 129/87 Pulse Oximetry 92 93 93 Oxygen Delivery Me thod Room Air Room Air Oxygen Flow Rate 11/18/22 00:00 11/18/22 02:52 11/18/22 04:54 Temperature 97.7 F Pulse Rate 71 Pulse Rate [Apical ] Pulse Rate [Left P ulse Oximeter] 77 Respiratory Rate 20 20 Blood Pressure [Le ft Arm] 135/96 H Pulse Oximetry 92 92 Oxygen Delivery Me thod Room Air Room Air Oxygen Flow Rate 11/18/22 07:45 11/18/22 08:23 11/18/22 11:07 Temperature 97.5 F L 97.1 F L Pulse Rate 92 Pulse Rate [Apical ] Pulse Rate [Left P ulse Oximeter] 85 71 Respiratory Rate 16 16 Blood Pressure [Le ft Arm] 137/83 139/88 Pulse Oximetry 92 93 Oxygen Delivery Me thod Room Air Room Air Oxygen Flow Rate 11/18/22 13:58 Temperature Pulse Rate Pulse Rate [Apical ] Pulse Rate [Left P ulse Oximeter] Respiratory Rate 18 Blood Pressure [Le ft Arm] Pulse Oximetry 92 Oxygen Delivery Me thod Nasal Cannula Oxygen Flow Rate 1.5 Documenting provider has reviewed patient's vital signs: yes Labs Labs: Laboratory Results - last 24 hr 11/18/22 06:21 Sodium 137 Potassium 3.7 Chloride 104 Carbon Dioxide 26 Anion Gap 7 BUN 22 Creatinine 0.9 Estimated Creat Clear 62.79 Estimated GFR 84 Glucose 115 Calcium 8.4
[2022-11-18 16:43] LABS: Fecal Occult Blood* Positive (Negative)
--- NOTE | 2022-11-18 18:45 | PC.NURSE ---
End of Shift.. VSS on RA, SOB on exertion with activity. No reports of pain this shift except intermittent stiffness. 2+ pitting edema in LLE and Bilateral feet. 1x dose of Lasix was ordered per DR Ramirez as well as PO Potassium. 1 BM this shift, fecal occult blood sample test was completed as well (positive, is aware). Incontinent of bladder and bowel. TID dressing change were completed per orders. New orders per Dr Espana to irrigate prior to packing on L buttock. He also got in the tub and soaked it well. New mepilex was applied to coccyx as well as to R greater toe due to weeping. Non slip socks are off right now due to edema, they are at the edge of the bed. Did not eat dinner,, it is in the fridge. Resting in bed with extremities elevated. Call light within reach.
[2022-11-18] MEDS: ENOXAPARIN 40 MG/0.4 ML INJ SUBCUT (20:50)
--- NOTE | 2022-11-18 22:31 | PC.NURSE ---
End of shift nursing note, care provided from 190--2300: Pt alert and oriented, noted forgetfulness, reminders PRN. Vitals stable, on RA. Pt up in chair, finishing dinner at start of shift. PRN Tylenol 975mg admin before bed for 5/10 pain to buttocks, pt declined need for PRN Tramadol at this time. Brief changed x2 this evening, void and x2 loose stools in evening, scheduled Senna held, dressing changed before bed, sacral mepilex in place, CDI. SCDs on BLE when pt up in chair, pt declined TEDs. Stood and offloaded weight while up in chair. IV flushed and saline locked. Pt up w/ Ax2 w/ walker and gaitbelt and assist to bed after 2200. Pt has call light within reach, bed alarm on.
[2022-11-19] VITALS (11 sets, daily range): BP systolic 113–152; BP diastolic 73–91; PULSE 69–90; RESP 16–18; TEMP 36.1–36.6; O2SAT 92–95
[2022-11-19] MEDS: CEFAZOLIN 2 GM in 0.9 % SODIUM CHLORIDE Mini-bag 100 ML IVPB ×3 (01:01→17:39)
[2022-11-19] MEDS: SODIUM CHLORIDE 0.9 % (FLUSH) 10 ML SYRINGE 5 ML IVF ×4 (01:02→20:40)
[2022-11-19] MEDS: 0.9 % SODIUM CHLORIDE 250 ml IV (01:04)
[2022-11-19] MEDS: TRAMADOL HCL 50 MG TABLET PO (01:10)
[2022-11-19] MEDS: ACETAMINOPHEN 325 MG TABLET PO ×2 (04:32→19:37)
[2022-11-19] MEDS: LEVOTHYROXINE 75 MCG TABLET 150 MCG PO (06:18)
[2022-11-19] MEDS: OMEPRAZOLE 20 MG CAPSULE DR 40 MG PO (06:19)
[2022-11-19 06:30] LABS: Basophils Absolute Auto 0.01 K/uL (0.00-0.30); Basophils Percent Auto 0.1 % (0.0-3.0); Eosinophils Absolute Auto 0.23 K/uL (0.00-0.50); Eosinophils Percent Auto 3.2 % (0.0-7.0); Hematocrit 30.4 % (37.0-53.0); Immature Granulocytes Abs Auto 0.11 K/uL (0.00-0.30); Immature Granulocytes Pct Auto 1.5 %; Lymphocytes Percent Auto 13.6 % (20-44); Mean Corpuscular HGB Conc 33 gm/dL (32-36); Mean Corpuscular Hemoglobin 32 pg (26-34); Mean Corpuscular Volume 97 fL (80-100); Monocytes Percent Auto 7.6 % (0.0-11.0); Platelet Count* 341 K/uL (140-440); RDW Coefficient of Variation % 13.5 % (11.5-15.5); Red Blood Count 3.14 m/uL (4.30-5.90); White Blood Count* 7.22 K/uL (4.50-11.00)
[2022-11-19 06:32] LABS: Slide Review Reflex No
--- NOTE | 2022-11-19 06:41 | PC.NURSE ---
Addendum entered by Manisha Bentley 11/19/22 06:50: mistype the pack dressing is on left buttock not right Original Note: Pt alert and oriented x3, forgetful at times, call light appropriate. Afebrile. Pt?s dressing to coccyx is CDI. Pt?s right buttocks dressing was changed and is CDI.? Pt reports 4/10 pain in lower back, pain managed with PRN medications. Pt denies chest pain, SOB and N/V. Pt is up A2 with walker gait belt, voiding. Pt reports stiffness in back when lying in bed repositioned pt and pt wanted to sit on edge of bed x3 to stretch. Pt slept intermittently throughout night.
[2022-11-19 06:50] LABS: Chloride* 105 mmol/L (96-114); Potassium* 3.6 mmol/L (3.6-5.1); Sodium* 139 mmol/L (135-149)
[2022-11-19 06:52] LABS: Creatinine* 0.9 mg/dL (0.5-1.5); Est. Creatinine Clearance* 62.79; Estimated Glomerular Filt Rate 84 ml/min
[2022-11-19 06:53] LABS: Anion Gap 6 mEq/L (7-15); Blood Urea Nitrogen* 21 mg/dL (7-30); Calcium* 8.4 mg/dL (8.4-10.6); Carbon Dioxide* 28 mmol/L (20-32); Glucose* 102 mg/dL (60-115)
[2022-11-19] MEDS: TAMSULOSIN HCL 0.4 MG CAPSULE PO (08:08)
[2022-11-19] MEDS: TRIAMTERENE-HCTZ 37.5-25 MG TB 1 TAB PO (08:08)
--- NOTE | 2022-11-19 12:25 | PM.IMPN1 ---
Progress Note: A&P Assessment and plan (1) MSSA bacteremia: Problem details: Cefazolin 2 g IV q.8 hours for 4 weeks after negative blood cultures for 72 hours, possibly starting November 20. TTE shows no vegetations. PICC line after 72 hours of negative culture, Status: Acute (2) Perianal abscess: Problem details: Status post I and D by Dr. Espana 11/14/2022. Abscess growing MSSA. Blood cultures show MSSA. Prolonged treatment with cefazolin. Status: Acute (3) Disability: Problem details: Patient currently moving much better. He is stronger and having less pain and weakness. Likely to need rehab stay for significant improvement prior to going to his apartment. Status: Acute (4) Rotator cuff arthropathy of both shoulders: Problem details: Appears to have bilateral rotator cuff injury. Only the right shoulder bothers him but both shoulders have marked weakness in limitation in motion. Right shoulder is better. He has begun to use his right hand a little bit to eat. Likely needs right shoulder replacement. Poor candidate for this at this time. Status: Acute (5) Urinary retention: Problem details: History of urethral stricture. Now with 700-1000 ml of residual urine. Incontinent of bowel and bladder. Place Rodriguez catheter. Outpatient Urology follow-up Status: Acute (6) Urinary tract infection: Problem details: Pansensitive E coli. Of uncertain clinical significance. Note probable long-term urinary retention, urethral stricture. Status: Acute (7) Urinary anastomotic stricture: Problem details: 2016 - transferred from [place] for acute urinary retention - stricture found on cystoscopy. Likely cause of current urinary retention. Status: Acute (8) Pulmonary arterial hypertension: Problem details: -noted Status: Acute (9) COPD (chronic obstructive pulmonary disease): Problem details: -not hypoxic. Continue home medications Status: Acute (10) Fall: Problem details: -date of injury/fall. 11/11/2022. Status: Acute (11) Rhabdomyolysis: Problem details: CK coming down. No evidence of LAKISHA -evidence of volume depletion -CK greater than 8000 Due to concern about volume overload will stop IV fluids -check Mag, phosphorus -AST ALT elevated Status: Acute (12) Hypertension: Problem details: Restart home meds as tolerated. Volume appears up today. Will restart diuretic, Dyazide. Stop Naprosyn. Status: Acute (13) Bereavement: Problem details: - 1 week prior to admission. yesterday, November 13. He had an offered to view his 's body today but he declined Status: Acute (14) Hypothyroidism: Problem details: -continue home levothyroxine dosing Status: Acute (15) Anemia: Problem details: Progressive drop in hemoglobin. No obvious bleeding. Check stool for occult blood. Some of this is dilutional. Resume diuretics. Stop Naprosyn Status: Acute (16) Constipation: Problem details: Increase laxative Status: Acute Plan Continue in hospital pending negative blood cultures for 72 hours then placed PICC line and plan for weeks of cephalexin 2 g IV q.8 hours. Time Spent With Patient Total time spent: Total time spent is 50 minutes, 40 minutes in coordination of care and discussing with patient and other providers management of bacteremia, perianal ulcer, disability from shoulder and other injuries. Subjective Date Seen: 11/19/22 Interval history: 87-year-old male admitted to the hospital after being found down at home after a prolonged period of being on the floor. Patient tells me that he thinks that he was getting ill perhaps a week before his fall. At the time of the fall he does not think he had unconsciousness. He felt like his left knee gave out however. He did feel hot and cold but was not aware of a fever. He reports chronic shoulder problems. He has a very painful right shoulder and reports minimal movement or strength in his right arm. This is gotten worse in the last few days. Not long ago he was using his right arm for a variety of tasks. He has also had limited motion in his shoulder and pain in his shoulder. He appears to have a history of bilateral rotator cuff tears but only his right arm is so painful he can not use it anymore. He is not aware of a new injury to his right shoulder and radiographs from the emergency department did not show new fracture. Nursing staff or concern is left leg was not working well. He did acknowledge his left knee gave out when he fell couple days ago. He reports bilateral knee pain which is longstanding. He did have some abrasions on his right knee from the fall which bother him a little bit. He has had incontinence of bowel and bladder. His a history of a urinary stricture and his bladder scan today shows almost 1000 mL of retained urine. Attempts were made to straight cath him but unsuccessful due to urethral stricture. He has continued to void large amounts of incontinent urine. Bladder scans continued to be around 700 to 1000 mL. Five years ago he had a stricture requiring transfer to [place] for surgical intervention. His creatinine has been stable at 0.7 during this hospital stay Since admission he has been treated for rhabdomyolysis with a CK coming down. His creatinine is stable. He has subsequently grown Gram-positive cocci from his blood cultures and identification and sensitivity are pending. He has been treated with vancomycin and ceftriaxone. CT scan showed that he had a perianal abscess. He was taken to the OR by Dr. Espana. She did I&D of this. He tolerated this well and has done well since surgery. Blood and abscess cultures both growing MSSA. Urine culture growing pansensitive E coli. Currently on cephalexin 2 g IV q.8 hours to treat both. I spoke with Infectious Disease who recommended 4 weeks of IV antibiotics after negative cultures. Patient and staff report that he is feeling stronger. They note his mood and affect are brighter. Today is complaining of some pain in his left buttock cheek where he has packing from his wound. He has no other concerns today. Still limited use of his right arm and limited motion is right shoulder. The pain there has improved however. Patient needs a total shoulder arthroplasty but is not a surgical candidate with current bacteremia and probably not a good candidate with chronic comorbidities even after this current infection has resolved. Receive some diuresis last night which he reports is helping his breathing a little bit but is not significant improve his edema. He is resisting support hose but willing to try compression wraps Exam Narrative: Exam Narrative: Alert appears in no distress. He is oriented to his circumstances. Minimal tenderness with palpation of his right shoulder but marked limitation of range of motion. He is able to move his elbow and wrist somewhat on the right. Feeding himself with his left hand. Respirations are clear to auscultation. Cardiovascular: S1, S2, regular rate and rhythm. Abdomen: Bowel sounds active. Abdomen is soft without tenderness or mass. 2+ edema in the left lower extremity in 1 to 2+ edema in the right lower extremity. He moves all 4 extremities well. Const: Vital Signs, click to edit/add: Vital Signs - 24 hr 11/18/22 13:58 11/18/22 15:30 11/18/22 15:30 Temperature 97.0 F L Pulse Rate Pulse Rate [Apical ] Pulse Rate [Left P ulse Oximeter] 76 Respiratory Rate 18 16 18 Blood Pressure [Le ft Arm] 131/76 Pulse Oximetry 92 93 93 Oxygen Delivery Me thod Nasal Cannula Nasal Cannula Nasal Cannula Oxygen Flow Rate 1.5 1 1 11/18/22 18:51 11/18/22 20:00 11/18/22 23:47 Temperature 97.1 F L Pulse Rate 65 68 Pulse Rate [Apical ] Pulse Rate [Left P ulse Oximeter] 90 Respiratory Rate 18 Blood Pressure [Le ft Arm] 111/78 Pulse Oximetry 94 [facility] Flow Rate 11/19/22 00:40 11/19/22 00:40 11/19/22 00:40 Temperature 97.9 F Pulse Rate Pulse Rate [Apical ] 88 88 Pulse Rate [Left P ulse Oximeter] 90 90 Respiratory Rate 18 18 Blood Pressure [Le ft Arm] 130/73 Pulse Oximetry 93 93 [facility] Oxygen Flow Rate 11/19/22 00:40 11/19/22 03:10 11/19/22 05:00 Temperature 97.7 F Pulse Rate Pulse Rate [Apical ] Pulse Rate [Left P ulse Oximeter] 78 Respiratory Rate 18 18 18 Blood Pressure [Le ft Arm] 125/82 Pulse Oximetry 93 94 94 [facility] Room Air Room Air Oxygen Flow Rate 11/19/22 08:15 11/19/22 08:26 11/19/22 11:15 Temperature 97.0 F L 97.0 F L Pulse Rate Pulse Rate [Apical ] Pulse Rate [Left P ulse Oximeter] 78 84 Respiratory Rate 16 16 16 Blood Pressure [Le ft Arm] 113/91 H 134/76 Pulse Oximetry 94 94 95 [facility] Room Air Room Air Oxygen Flow Rate Labs Labs: Laboratory Results - last 24 hr 11/18/22 11/19/22 13:04 06:03 WBC 7.22 RBC 3.14 L Hgb 10.0 L Hct 30.4 L MCV 97 MCH 32 MCHC 33 RDW Coeff of Alec 13.5 Plt Count 341 Neut % (Auto) 74.0 H Lymph % (Auto) 13.6 L Bennett % (Auto) 7.6 Eos % (Auto) 3.2 Baso % (Auto) 0.1 Neut # (Auto) 5.30 Lymph # (Auto) 1.00 Bennett # (Auto) 0.50 Eos # (Auto) 0.23 Baso # (Auto) 0.01 Abs Immat Gran (auto) 0.11 Imm/Tot Granulo (auto) 1.5 Sodium 139 Potassium 3.6 Chloride 105 Carbon Dioxide 28 Anion Gap 6 L BUN 21 Creatinine 0.9 Estimated Creat Clear 62.79 Estimated GFR 84 Glucose 102 Calcium 8.4 Stool Occult Blood Positive
--- NOTE | 2022-11-19 13:04 | PC.SOCIAL ---
Discharge planning: Received call back from [facility], [facility] and [facility], stating they are all able to accept pt for admit tomorrow for short term rehab and IV abx. Met with pt regarding discharge plan and he states he is unable to make a decision on which facility to choose and requested professor of social work discuss this with Maryellen and Deisy. Met at the hospital with Maryellen who requested [facility] as this is the closest placement option to family. Called Deisy who states that if this is the family choice, she will agree with Maryellen that pt go to [facility] for rehab stay. Called [facility] and spoke with Nathen who confirms they can accept pt tomorrow and suggested an arrival time of about 11:00am tomorrow. out of school hours care worker to follow up as needed.
--- NOTE | 2022-11-19 15:00 | PM.GSPN ---
Subjective Subjective Date Seen: 11/19/22 Interval history: Patient is doing okay this morning. No changes in his pain. He does have a ?burning sensation? with dressing changes. This has been well controlled. Exam Narrative: Exam Narrative: General: Alert and oriented, nontoxic in appearance : Left buttock dressings removed, saturation of serosanguineous fluid. No purulence noted today. There is a small amount of fibrinous exudate removed from the abscess cavity. Surrounding erythema stable, no significant induration. Const: Vital Signs, click to edit/add: Vital Signs - 24 hr 11/18/22 15:30 11/18/22 15:30 11/18/22 18:51 Temperature 97.0 F L Pulse Rate 65 Pulse Rate [Apical ] Pulse Rate [Left P ulse Oximeter] 76 Respiratory Rate 16 18 Blood Pressure [Le ft Arm] 131/76 Pulse Oximetry 93 93 Oxygen Delivery Me thod Nasal Cannula Nasal Cannula Oxygen Flow Rate 1 1 11/18/22 20:00 11/18/22 23:47 11/19/22 00:40 Temperature 97.1 F L 97.9 F Pulse Rate 68 Pulse Rate [Apical ] 88 Pulse Rate [Left P ulse Oximeter] 90 90 Respiratory Rate 18 18 Blood Pressure [Le ft Arm] 111/78 130/73 Pulse Oximetry 94 93 [facility] Room Air Oxygen Flow Rate 11/19/22 00:40 11/19/22 00:40 11/19/22 00:40 Temperature Pulse Rate Pulse Rate [Apical ] 88 Pulse Rate [Left P ulse Oximeter] 90 Respiratory Rate 18 18 Blood Pressure [Le ft Arm] Pulse Oximetry 93 93 [facility] Flow Rate 11/19/22 03:10 11/19/22 05:00 11/19/22 07:30 Temperature 97.7 F Pulse Rate 81 Pulse Rate [Apical ] Pulse Rate [Left P ulse Oximeter] 78 Respiratory Rate 18 18 Blood Pressure [Le ft Arm] 125/82 Pulse Oximetry 94 94 [facility] Room Air Oxygen Flow Rate 11/19/22 08:15 11/19/22 08:26 11/19/22 11:15 Temperature 97.0 F L 97.0 F L Pulse Rate Pulse Rate [Apical ] Pulse Rate [Left P ulse Oximeter] 78 84 Respiratory Rate 16 16 16 Blood Pressure [Le ft Arm] 113/91 H 134/76 Pulse Oximetry 94 94 95 Oxygen Delivery Me thod Room Air Room Air Room Air Oxygen Flow Rate Progress Note: A&P Assessment and plan (1) Perianal abscess: Problem details: Status post I and D by Dr. Espana 11/14/2022. Abscess growing MSSA. Blood cultures show MSSA. Prolonged treatment with cefazolin. Status: Acute Assessment and Plan: Patient is s/p I&D left buttock abscess. Wound is pillowcase cleaner in appearance compared to yesterday. Cavity was packed tightly with Vashe soaked Kerlix. Will continue with Vashe soaked Kerlix t.i.d. dressing changes, continue to irrigate the cavity with dressing changes. Dressing orders have been updated. Will plan for reassessment on Wednesday. Please call the on-call surgeon with any acute clinical changes or concerns.
--- NOTE | 2022-11-19 15:15 | PC.NURSE ---
End of shift:VSS on RA. Up to chair throughout the day. Dressing change was completed this afternoon. New orders per Dr Nguyễn to nataliia lee with [facility]. Complains of stiffness, and burning in his buttock wound. PICC to be placed tomorrow. Pending transfer to [place] for care with [facility]. Sister in law has been visiting at bedside this afternoon. Mepilex to coccyx and R greater toe. Stool softeners were held this AM due to loose stools yesterday. 1 large incontinent BM this shift. Social work is following, but he will see his prior to her cremation. No other concerns at this time. Call light within reach.
[2022-11-19] MEDS: ENOXAPARIN 40 MG/0.4 ML INJ SUBCUT (20:39)
[2022-11-20] MEDS: CEFAZOLIN 2 GM in 0.9 % SODIUM CHLORIDE Mini-bag 100 ML IVPB ×2 (00:46→09:00)
[2022-11-20] MEDS: SODIUM CHLORIDE 0.9 % (FLUSH) 10 ML SYRINGE 5 ML IVF ×2 (00:47→08:59)
[2022-11-20] MEDS: 0.9 % SODIUM CHLORIDE 250 ml IV (00:47)
[2022-11-20] MEDS: ACETAMINOPHEN 325 MG TABLET PO (02:17)
[2022-11-20 03:00] VITALS: BP 148/89; PULSE 77; RESP 16; TEMP 36.6; O2SAT 93
[2022-11-20 05:00] VITALS: O2SAT 95
[2022-11-20 06:24] LABS: Basophils Absolute Auto 0.03 K/uL (0.00-0.30); Basophils Percent Auto 0.4 % (0.0-3.0); Eosinophils Percent Auto 2.9 % (0.0-7.0); Hematocrit 31.5 % (37.0-53.0); Hemoglobin* 10.2 gm/dL (13.5-17.5); Immature Granulocytes Abs Auto 0.07 K/uL (0.00-0.30); Mean Corpuscular HGB Conc 32 gm/dL (32-36); Mean Corpuscular Hemoglobin 31 pg (26-34); Mean Corpuscular Volume 96 fL (80-100); Monocytes Percent Auto 7.8 % (0.0-11.0); Neutrophils Percent Auto 72.9 % (42.0-72.0); Platelet Count* 346 K/uL (140-440); RDW Coefficient of Variation % 13.7 % (11.5-15.5); Red Blood Count 3.28 m/uL (4.30-5.90); White Blood Count* 6.79 K/uL (4.50-11.00)
[2022-11-20 06:26] LABS: Slide Review Reflex No
[2022-11-20] MEDS: LEVOTHYROXINE 75 MCG TABLET 150 MCG PO (06:36)
[2022-11-20] MEDS: OMEPRAZOLE 20 MG CAPSULE DR 40 MG PO (06:36)
[2022-11-20 06:44] LABS: Chloride* 105 mmol/L (96-114)
[2022-11-20 06:45] LABS: Potassium* 3.9 mmol/L (3.6-5.1); Sodium* 138 mmol/L (135-149)
[2022-11-20 06:47] LABS: Anion Gap 7 mEq/L (7-15); Carbon Dioxide* 26 mmol/L (20-32); Creatinine* 1.3 mg/dL (0.5-1.5); Estimated Glomerular Filt Rate 54 ml/min
[2022-11-20 06:48] LABS: Blood Urea Nitrogen* 23 mg/dL (7-30); Calcium* 8.6 mg/dL (8.4-10.6); Glucose* 99 mg/dL (60-115)
[2022-11-20 07:00] VITALS: BP 128/83; PULSE 70; PULSE 77; RESP 16; TEMP 36; O2SAT 95
--- NOTE | 2022-11-20 07:22 | PC.NURSE ---
Shift note: Pt had adequate sleep. Occasional confusion and has been calling frequently tonight for re-adjustment of pillows and pain medications. Pt do not like Narcotic medications to be given. A2, walker and GB. Vitally stable.
[2022-11-20 08:00] VITALS: PULSE 81
[2022-11-20] MEDS: TRIAMTERENE-HCTZ 37.5-25 MG TB 1 TAB PO (08:59)
[2022-11-20] MEDS: TAMSULOSIN HCL 0.4 MG CAPSULE PO (08:59)
[2022-11-20] MEDS: SENNOSIDES/DOCUSATE TABLET 1 TAB PO (08:59)
--- NOTE | 2022-11-20 10:00 | CRLHL7_ITS ---
For Patients: As a result of the Century Cures Act, medical imaging exams and procedure reports are released immediately into your electronic medical record. You may view this report before your referring provider. If you have questions, please contact your health care provider. Indication: PICC placement Technique: Chest 1 view Comparison: 11/18/2022 Findings/Impression: Cardiovascular and mediastinum: Cardiac silhouette is enlarged. Chronic prominence of the central pulmonary vessels. Left-sided PICC is in satisfactory position with the tip in the low SVC. Lungs and pleural space: No sign of infiltrate or mass. No sign of pleural effusion. No pneumothorax. Bones and soft tissues: Chronic benign densities in the right proximal humerus. Dictated by Mateus Jackson MD @ 11/20/2022 12:11:24 PM (Electronically Signed)
--- NOTE | 2022-11-20 10:00 | CRLHL7_ITS ---
For Patients: As a result of the Century Cures Act, medical imaging exams and procedure reports are released immediately into your electronic medical record. You may view this report before your referring provider. If you have questions, please contact your health care provider. Indication: PICC line Technique: Sonographic images of the left basilic vein and left internal jugular vein submitted. IMPRESSION: Sonographic guidance for PICC line placement. Dictated by Mateus Jackson MD @ 11/20/2022 11:54:54 AM (Electronically Signed)
--- NOTE | 2022-11-20 10:05 | PC.SOCIAL ---
Discharge planning: Pt has been accepted for admit at [facility] for today. Called sister, Maryellen, and caregiver, Deisy, who are both aware and agree with this plan. Maryellen is arranging for family to pick pt up today at 2:00 and they will transport him to the home for him to be able to see his prior to admission to [facility] at 4:00 today. Family is aware of need to stick to this schedule so that he is at the new facility and settled prior to his next IV abx dose. [facility] is aware and agrees with this plan. cue worker to follow up as needed.
[2022-11-20 11:00] VITALS: BP 137/78; PULSE 70; RESP 16; TEMP 36.1; O2SAT 95
--- NOTE | 2022-11-20 11:34 | NUTR.NU ---
RDN with skin risk consult. Pt has been followed by nutrition since admission. Eating well especially when provided soft foods. Discharge planned for today.
--- NOTE | 2022-11-20 12:10 | P.DS_ITS ---
DS: Providers Provider Date Seen: 11/20/22 Date of admission: 11/13/22 09:00 Primary care physician: Jason Hickey MD Admitting Clinician: Naya Jiménez MD Attending Physician on discharge: Ousmane Ramirez MD Date of Discharge: 11/20/22 DS: Diagnosis Discharge Diagnosis (1) MSSA bacteremia: Status: Acute Problem details: Cefazolin 2 g IV q.8 hours for 4 weeks after negative blood cultures for 72 hours, possibly starting November 20. TTE shows no vegetations. PICC line today on day of discharge. Patient has prosthetic hip. Source of the b acteremia is suspected to be perianal abscess which has been drained. (2) Perianal abscess: Status: Acute Problem details: Status post I and D by Dr. Espana 11/14/2022. Abscess growing MSSA. Blood cultures show MSSA. Prolonged treatment with cefazolin for bacteremia. Follow- up with Dr. Espana in 1-2 weeks for wound check (3) Urinary retention: Status: Acute Problem details: History of urethral stricture. Suspected to be long-term problem. Now with 700-1000 ml of residual urine. Incontinent of bowel and bladder. Place Rodriguez catheter. Creatinine has been stable. Patient continues to void with in continence. Outpatient Urology follow-up (4) Urinary tract infection: Status: Acute Problem details: Pansensitive E coli. Of uncertain clinical significance. Note probable long- term urinary retention, urethral stricture. (5) Urinary anastomotic stricture: Status: Acute Problem details: 2016 - transferred from [place] for acute urinary retention - stricture found on cystoscopy. Likely cause of current urinary retention. Recommend outpatient Urology follow-up. Monitor creatinine for declining kidney function, an indication for urgent urology intervention (6) Bereavement: Status: Acute Problem details: - 1 week prior to admission. yesterday, November 13. (7) Fall: Status: Acute Problem details: -date of injury/fall. 11/11/2022. (8) Rotator cuff arthropathy of both shoulders: Status: Acute Problem details: Appears to have bilateral rotator cuff injury. Only the right shoulder bothers him but both shoulders have marked weakness in limitation in motion. Right shoulder is better. He has begun to use his right hand a little bit to eat. Likely needs right shoulder replacement. Poor surgical candidate for this at this time. (9) Disability: Status: Acute Problem details: Patient currently moving much better. He is stronger and having less pain and weakness. Likely to need rehab stay for significant improvement prior to going to his apartment. (10) Constipation: Status: Acute Problem details: Increased laxative (11) Rhabdomyolysis: Status: Resolved Problem details: On admission patient had been lying on the floor after a fall for up to 20 hours. He had rhabdomyolysis. This resolved with fluids. Kidney function is back to baseline. (12) Pulmonary arterial hypertension: Status: Inactive Problem details: -noted (13) Hypothyroidism: Status: Inactive Problem details: -continue home levothyroxine dosing (14) Hypertension: Status: Inactive Problem details: Home medications have been restarted. (15) COPD (chronic obstructive pulmonary disease): Status: Inactive Problem details: -not hypoxic. Continue home medications (16) Anemia: Status: Inactive Problem details: Chronic anemia. No significant investigation on this hospital stay DS: Summary Hospital Course Hospital Course: 87-year-old male admitted to the hospital after being found down at home after a prolonged period of being on the floor. Patient tells me that he thinks that he was getting ill perhaps a week before his fall. At the time of the fall he does not think he had unconsciousness. He felt like his left knee gave out however. He did feel hot and cold but was not aware of a fever. He reports chronic shoulder problems. He has a very painful right shoulder and reports minimal movement or strength in his right arm. This is gotten worse in the last few days. Not long ago he was using his right arm for a variety of tasks. He has also had limited motion in his shoulder and pain in his shoulder. He appears to have a history of bilateral rotator cuff tears but only his right arm is so painful he can not use it anymore. He is not aware of a new injury to his right shoulder and radiographs from the emergency department did not show new fracture. Nursing staff or concern is left leg was not working well. He did acknowledge his left knee gave out when he fell couple days ago. He reports bilateral knee pain which is longstanding. He did have some abrasions on his right knee from the fall which bother him a little bit. He has had incontinence of bowel and bladder. His a history of a urinary stricture and his bladder scan today shows almost 1000 mL of retained urine. Attempts were made to straight cath him but unsuccessful due to urethral stricture. He has continued to void large amounts of incontinent urine. Bladder scans continued to be around 700 to 1000 mL. Five years ago he had a stricture requiring transfer to [place] for surgical intervention. His creatinine has been stable at 0.7 during this hospital stay Since admission he has been treated for rhabdomyolysis with a CK coming down. His creatinine is stable. He has subsequently grown Gram-positive cocci from his blood cultures and identification and sensitivity are pending. He has been treated with vancomycin and ceftriaxone. CT scan showed that he had a perianal abscess. He was taken to the OR by Dr. Espana. She did I&D of this. He tolerated this well and has done well since surgery. Blood and abscess cultures both growing MSSA. Urine culture growing pansensitive E coli. Currently on cephalexin 2 g IV q.8 hours to treat both. I spoke with Infectious Disease who recommended 4 weeks of IV antibiotics after negative cultures. Patient and staff report that he is feeling stronger. They note his mood and affect are brighter. Today is complaining of some pain in his left buttock cheek where he has packing from his wound. He has no other concerns today. Still limited use of his right arm and limited motion is right shoulder. The pain there has improved however. Patient needs a total shoulder arthroplasty but is not a surgical candidate with current bacteremia and probably not a good candidate with chronic comorbidities even after this current infection has resolved. Status at Discharge Functional status at discharge: uses cane/walker Overall status at discharge: patient is progressing back to baseline Time Spent with Patient Time attestation: Total time spent providing and/or coordinating discharge services: Time spent: Greater than 30 minutes Exam Narrative: Exam Narrative: He is alert and appears in no distress. Respirations are clear to auscultation. Cardiovascular: S1, S2, regular rhythm. Abdomen is soft without tenderness or mass. He has less tenderness in his shoulder but still marked limitation of motion in his right shoulder. Using left arm and shoulder for most tasks including eating. Extremities with mild edema. Const: Vital Signs, click to edit/add: Vital Signs - 24 hr 11/19/22 15:59 11/19/22 15:59 11/19/22 16:01 Temperature 97.6 F Pulse Rate 69 Pulse Rate [Apical ] 84 Pulse Rate [Left P ulse Oximeter] Respiratory Rate 16 Blood Pressure [Le ft Arm] 146/84 H Pulse Oximetry 95 95 Oxygen Delivery Me thod Room Air Room Air Fraction of Inspir ed Oxygen 11/19/22 19:00 11/19/22 23:00 11/19/22 23:00 Temperature 97.8 F Pulse Rate Pulse Rate [Apical ] Pulse Rate [Left P ulse Oximeter] 74 86 Respiratory Rate 16 16 16 Blood Pressure [Le ft Arm] 152/86 H Pulse Oximetry 94 92 Oxygen Delivery Me thod Room Air Room Air Fraction of Inspir ed Oxygen 11/19/22 23:00 11/19/22 23:00 11/19/22 23:00 Temperature 97.7 F Pulse Rate 86 Pulse Rate [Apical ] Pulse Rate [Left P ulse Oximeter] 86 Respiratory Rate 16 Blood Pressure [Le ft Arm] 142/82 H Pulse Oximetry 92 92 Oxygen Delivery Me thod Room Air Fraction of Inspir ed Oxygen 11/20/22 03:00 11/20/22 05:00 11/20/22 07:00 Temperature 97.8 F Pulse Rate Pulse Rate [Apical ] 70 Pulse Rate [Left P ulse Oximeter] 77 Respiratory Rate 16 16 Blood Pressure [Le ft Arm] 148/89 H Pulse Oximetry 93 95 Oxygen Delivery Me thod Room Air [facility] 18 11/20/22 07:00 11/20/22 07:00 11/20/22 08:00 Temperature 96.8 F L Pulse Rate 81 Pulse Rate [Apical ] 70 Pulse Rate [Left P ulse Oximeter] 77 Respiratory Rate 16 16 Blood Pressure [Le ft Arm] 128/83 Pulse Oximetry 95 95 Oxygen Delivery Me thod Room Air Room [facility] F[facility] Documenting provider has reviewed patient's vital signs: yes DS: Data Data Completed and Pending Labs on day of discharge: Labs from last 24 hours 11/20/22 06:07 WBC 6.79 RBC 3.28 L Hgb 10.2 L Hct 31.5 L MCV 96 MCH 31 MCHC 32 RDW Coeff of Alec 13.7 Plt Count 346 Neut % (Auto) 72.9 H Lymph % (Auto) 15.0 L [place] % (Auto) 7.8 Eos % (Auto) 2.9 Baso % (Auto) 0.4 Neut # (Auto) 4.90 Lymph # (Auto) 1.00 [place] # (Auto) 0.50 Eos # (Auto) 0.20 Baso # (Auto) 0.03 Abs Immat Gran (auto) 0.07 Imm/Tot Granulo (auto) 1.0 Sodium 138 Potassium 3.9 Chloride 105 Carbon Dioxide 26 Anion Gap 7 BUN 23 Creatinine 1.3 Estimated Creat Clear 48.30 Estimated GFR 54 Glucose 99 Calcium 8.6 Preliminary micro results at discharge 11/18/22 06:21 Blood Culture - Preliminary Blood NO GROWTH AFTER 48 HOURS 11/19/22 06:03 Blood Culture - Preliminary Blood NO GROWTH AFTER 24 HOURS 11/17/22 05:44 Blood Culture - Preliminary Blood NO GROWTH AFTER 72 HOURS 11/16/22 06:12 Blood Culture - Preliminary Blood Staphylococcus aureus Imaging CT Chest/Ab/Pelvis: Radiologist's impression: INDICATION: Fever, bacteremia, left buttock tenderness, rule out infection/abscess. TECHNIQUE: CT chest, abdomen and pelvis acquired with 98 mL Isovue 370 IV contrast. COMPARISON: 12/10/[address] FINDINGS: CHEST: Cardiovascular structures: Heart size is normal. Thoracic aorta and main pulmonary artery are normal in caliber. Coronary artery calcification. Mediastinum and elaine: No mass or adenopathy. Lungs and pleura: Emphysema. Trace right pleural effusion. Lungs clear. Chest wall and axilla: No mass or adenopathy. Bones: Severe right and moderate left shoulder arthritis. ABDOMEN AND PELVIS: Liver: Unremarkable. Gallbladder and bile ducts: Unremarkable. Pancreas: Unremarkable. Spleen: Unremarkable. Adrenal glands: Unremarkable. Kidneys: Tiny bilateral nonobstructing stones. Bilateral cysts. GI tract: Colonic diverticulosis without diverticulitis. Vascular structures: Atherosclerosis. Lymph nodes: Several mildly enlarged left iliac chain lymph nodes are likely reactive. Miscellaneous: Approximately 12 cm fluid collection with surrounding enhancement and edema in the left buttock extending from the midline to just under the skin. This is most likely a perirectal abscess. Pelvic Organs: Small amount of air within the urinary bladder wall compatible with emphysematous cystitis. Right-sided hydrocele. Bones: Right hip arthroplasty. IMPRESSION: 1. Large left-sided perirectal abscess. 2. Emphysematous cystitis. 3. Bilateral nonobstructing nephrolithiasis. 4. Emphysema and trace right pleural effusion. CT- Other: Radiologist's impression: INDICATION: Recent fall, shoulder pain. TECHNIQUE: Noncontrast CT right shoulder. COMPARISON: 11/12/2022 shoulder x-ray. FINDINGS: No acute shoulder fracture. No dislocation. 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 Complete loss of joint space, large osteophytes, and marked subchondral sclerosis and cystic change. Multiple loose bodies in the joint and subcoracoid recess. Moderate AC joint arthrosis. 9.3 x 2.0 cm cartilage lesion in the right proximal humeral shaft compatible with a benign enchondroma. Shoulder joint effusion. Tiny right pleural effusion noted. IMPRESSION: 1. No acute findings in the right shoulder. 2. Severe glenohumeral arthritis. 3. 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 CT scan - head: Radiologist's impression: INDICATION: Fall, head injury. COMPARISON: CT head 11/27/2017. TECHNIQUE: CT of the head without IV contrast. Coronal and sagittal reconstructions. FINDINGS: No intracranial hemorrhage, mass effect, or evidence of acute infarct. No midline shift. No abnormal extra-axial fluid collections. Mild generalized cerebral and cerebellar volume loss. Mild chronic small vessel ischemic disease. 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 Ventricular caliber is within normal limits. Orbits and extraocular muscles are symmetric. The paranasal sinuses and mastoid air cells are clear. No acute fracture identified. Soft tissue swelling across the forehead, right lateral frontoparietal scalp, and right periorbital region. IMPRESSION: 1. No acute intracranial findings. 2. Mild generalized cerebral volume loss and mild chronic small vessel ischemic disease. 3. Soft tissue swelling across the forehead, right lateral frontoparietal scalp, and right periorbital region. Discharge Plan Discharge Disposition: [facility] Date of Admission: 11/13/22 09:00 Attending Provider on Discharge: Gio Ramirez Primary Care Provider: Jason Hickey Discharge Medications: New tramadol 50 mg tablet 50 mg PO BID PRN (Reason: pain) Qty: 30 0RF cefazolin 2 gram recon soln 2 g IV Q8H Qty: 84 0RF Rx Instructions: 2 grams IV q 8 hours for 4 weeks acetaminophen 500 mg capsule 1,000 mg PO TID PRNQty: 180 0RF senna 8.6 mg capsule 8.6 mg PO BID PRN (Reason: constipation) Qty: 60 0RF Continued levothyroxine 150 mcg tablet 150 mcg PO DAILY Patient Comments: TAKE ONE TABLET BY MOUTH ONE TIME DAILY triamterene-hydrochlorothiazid 37.5-25 mg tablet 1 tab PO DAILY Patient Comments: TAKE ONE TABLET BY MOUTH IN THE MORNING fluticasone propion-salmeterol [Advair Diskus] 250-50 mcg/dose blister with device 1 inh INHALATION BID Patient Comments: Inhale 1 Puff by mouth 2 times daily Combivent Respimat 20-100 mcg/actuation mist 1 puff INHALATION QID Patient Comments: INHALE ONE PUFF BY MOUTH FOUR TIMES DAILY triamcinolone acetonide 0.5 % ointment 1 applic topical BID PRN aspirin [Adult Aspirin Regimen] 81 mg tablet,delayed release (DR/EC) 81 mg PO DAILY cyanocobalamin (vitamin B-12) 1,000 mcg tablet 1,000 mcg PO DAILY cholecalciferol (vitamin D3) 50 mcg (2,000 unit) capsule 50 mcg PO DAILY Discontinued amlodipine 5 mg tablet 5 mg PO DAILY Patient Comments: Take 1 Tablet (5 mg) by mouth once daily. Discharge Orders: Discharge Order (Routine); Ordered 11/20/22 Ordered By: Gio Ramirez Additional Instructions: Follow-up with Dr. Ruthann Espana, general surgeon, at [facility] clinic in 1-2 weeks. Outpatient follow-up with Urology at next available appointment to address urinary retention and urethral stricture. Activity Level: Up with assist and Use Walker Discharge Diet: Regular Follow Up Appointments: Jason Hickey MD [Primary Care Provider] - Wound Care: BID wet to dry dressing change. Kerlix within wound (1 piece) soaked in Vashe and outer fluffs with tape. Patient should shower once daily, soak wound with shower spray to irrigate and cleanse. Admit to: SNF Discharge Potential: Fair Length of Stay: <30 days Can use facility standing orders?: Yes Code Status: DNR/DNI Rehab Potential: Fair Therapy: Physical Therapy and Occupational Therapy Therapy Orders: Evaluate and Treat Oxygen: No Lab Orders: CBC and basic metabolic panel in 1 week
== END 2022-11-20 14:15 | DRG 872 ==
LOC: ED 19:48 → MEDSURG 20:36
PROVIDERS: Family Medicine; Surgery; Admitting Provider Internal Medicine; Emergency Provider Family Medicine; PCP Family Medicine; Visit Provider Family Medicine
PROC: (CPT 46040; principal; 2022-11-14 20:00)
DX: R78.81 Bacteremia (principal); K61.0 Anal abscess; N39.0 Urinary tract infection, site not specified; M62.82 Rhabdomyolysis; B95.61 Methicillin susceptible Staphylococcus aureus infection as the cause of diseases classified elsewhere; I27.21 Secondary pulmonary arterial hypertension; J44.9 Chronic obstructive pulmonary disease, unspecified; Z96.641 Presence of right artificial hip joint; Z87.891 Personal history of nicotine dependence; Z63.4 Disappearance and death of family member; E03.9 Hypothyroidism, unspecified; Z91.81 History of falling; I10 Essential (primary) hypertension; N35.819 Other urethral stricture, male, unspecified site; B96.20 Unspecified Escherichia coli [E. coli] as the cause of diseases classified elsewhere; R33.9 Retention of urine, unspecified; D64.9 Anemia, unspecified; K59.00 Constipation, unspecified; M19.011 Primary osteoarthritis, right shoulder; M19.012 Primary osteoarthritis, left shoulder; Z02.71 Encounter for disability determination; M75.102 Unspecified rotator cuff tear or rupture of left shoulder, not specified as traumatic; M75.101 Unspecified rotator cuff tear or rupture of right shoulder, not specified as traumatic
CPT/HCPCS: 00902; 36415; 36573; 51798; 70450; 70486; 71045; 71260; 72125; 73030; 73200; 73560; 74177; 80048; 80053; 81001; 82077; 82270; 82550; 82803; 83605; 83735; 84100; 84145; 84484; 85025; 85027; 85610; 85651; 86140; 87040; 87070; 87075; 87086; 87186; 87205; 87631; 92610; 93005; 93306; 94761; 97110; 97112; 97116; 97161; 97166; 97530; 97535; 99100; 99285; A9270; C1751; C9113; C9290; G0378; J0330; J0665; J0690; J0696; J1100; J1650; J1940; J2250; J2405; J2543; J2704; J3010; J3370; J3480; J3490; J7030; J7050; J7120; Q9957; Q9967